=== PATIENT | female | born 1955 | race Caucasian/White ===

== ENCOUNTER 2017-01-12 10:00 | Inpatient (IN) | payer OTHER ==
[~2017-01-12] VITALS: Ht 167.6 cm; Wt 71.1 kg
[2017-01-12] VITALS (7 sets, daily range): BP systolic 108–137; BP diastolic 66–84; PULSE 51–70; RESP 15–20; TEMP 99.3–101; O2SAT 94–96
[~2017-01-12 10:00] MED LIST: ASPI81TA82 PO; ATOR40TA PO; ERYT1O LEFT EYE; HYDR-3533 PO; HYDR12.56 PO; LOSA50TA PO; TAB-TAB PO
[2017-01-12] MEDS ORDERED: [UNRECOGNIZED DRUG - OTHER] PO (10:19)
[2017-01-12] MEDS ORDERED: HYDR25TA5 PO (10:19)
[2017-01-12] MEDS ORDERED: ZITHTAB PO (10:19)
[2017-01-12] MEDS ORDERED: ASPI325T PO (10:19)
[2017-01-12] MEDS ORDERED: ATOR1TAB18 PO (10:19)
[2017-01-12] MEDS ORDERED: LOSA50TA PO (10:19)
[2017-01-12] MEDS ORDERED: SODIUM CHLORIDE 0.9% FLUSH 10 ML FLUSH IVF PRN (10:30)
--- NOTE | 2017-01-12 10:41 | PD ---
HPI Chief Complaint: Cold / Flu Symptoms Time Seen by Provider: 10:20 Travel History International Travel<30 days: No Contact w/Intl Traveler<30days: No Traveled to known affect area: No History of Present Illness HPI Patient is a 61-year-old female presents emergency department with cough congestion but her developing some chest tightness. Patient states she's been coughing congesting for a couple of weeks. She's been taking some anabiotic's Z -Sukumar which her primary care physician called in for her. She states that she wasn't getting better and decided to come in and be seen. She relates a history of having a blockage in her heart diagnosed by cardiac catheterization in 2005 as well as a myocardial infarction in 2016 which she was admitted for but never had a cardiac catheterization. She states she's been ex-smoker and hasn't had a cigarette in eight years. She states she's been having some mild shortness of breath but no nausea no vomiting. No exertional pain. States that she did have a mild fever at home to 100.4. PFSH Past Medical History Arthritis: No Asthma: No Autoimmune Disease: No Blood Disorders: No Anxiety: Yes Depression: No Heart Rhythm Problems: Yes (MITRAL VALVE PROLAPSE) Cancer: Yes (BASAL CELL NOSE) Cardiac Catheterization: Yes Cardiovascular Problems: Yes (HTN, CHOL) High Cholesterol: Yes Chemotherapy: No Chest Pain: No Congestive Heart Failure: No COPD: No Cerebrovascular Accident: No Diminished Hearing: No Endocrine: No Gastrointestinal Disorders: Yes GERD: No Glaucoma: No Genitourinary: No Headaches: No Hepatitis: No Hiatal Hernia: No Hypertension: Yes Immune Disorder: No Implanted Vascular Access Dvce: No Kidney Stones: No Musculoskeletal: No Neurologic: No Psychiatric: Yes Reproductive: No Respiratory: No Integumentary: Yes (BASAL CELL REMOVED FROM NOSE) Immunizations Current: Yes Migraines: No Radiation Therapy: No Renal Failure: No Seizures: No Sleep Apnea: No Thyroid Disease: No Ulcer: No ?: Not : 4 Para: 3 Miscarriage: 1 Dilation and Curettage (D&C): Yes Past Surgical History Abdominal Surgery: No Appendectomy: No Cardiac Surgery: No Cholecystectomy: No Coronary Artery Bypass Graft: No Ear Surgery: No Endocrine Surgery: No Eye Surgery: No Genitourinary Surgery: No Gynecologic Surgery: Yes (PARTIAL HYSTERECTOMY, D&C) Hysterectomy: Yes Neurologic Surgery: No Oral Surgery: No Thoracic Surgery: No Other Surgery: Yes (HYSTERECTOMY) Social History Alcohol Use: Yes (2 GLASSES OF WINE A DAY) Tobacco Use: No (QUIT 2008) Substance Use: No Allergies-Medications (Allergen,Severity, Reaction): Coded Allergies: Amlodipine (Verified Allergy, Severe, legs swelling, 01/12/17) Reported Meds & Prescriptions Reported Meds & Active Scripts Active Reported Aspirin 325 Mg Tab 325 Mg PO DAILY [Vitussin Ac] 5-10 Ml PO Q4HR Atorvastatin (Atorvastatin Calcium) 80 Mg Tab 80 Mg PO HS Hydrochlorothiazide 25 Mg Tab 25 Mg PO DAILY Losartan (Losartan Potassium) 50 Mg Tab 50 Mg PO BID Zithromax Z-Sukumar (Azithromycin) 250 Mg Dspk 250 Mg PO DIRECTED 500 MG (2 tabs) day 1, then 1 tab days 2-5. Review of Systems Except as stated in HPI: all other systems reviewed are Neg Physical Exam Narrative GENERAL: Well-developed well-nourished in no obvious distress. SKIN: Focused skin assessment warm/dry. HEAD: Atraumatic. Normocephalic. EYES: Pupils equal and round. No scleral icterus. No injection or drainage. ENT: No nasal bleeding or discharge. Mucous membranes pink and moist. TMs clear bilaterally, oropharynx clear and moist. NECK: Trachea midline. No JVD. CARDIOVASCULAR: Regular rate and rhythm. No murmur appreciated. Plus bilateral equal pulses in all 4 extremity's. RESPIRATORY: No accessory muscle use. Clear to auscultation. Breath sounds equal bilaterally. GASTROINTESTINAL: Abdomen soft, non-tender, nondistended. Hepatic and splenic margins not palpable. MUSCULOSKELETAL: No obvious deformities. No clubbing. No cyanosis. No edema. NEUROLOGICAL: Awake and alert. No obvious cranial nerve deficits. Motor grossly within normal limits. Normal speech. PSYCHIATRIC: Appropriate mood and affect; insight and judgment normal. Data Data Last Documented VS Vital Signs Date Time Temp Pulse Resp B/P Pulse Ox O2 Delivery O2 Flow Rate FiO2 01/12/17 11:56 58 18 129/72 96 Room Air 01/12/17 10:06 99.3 Orders Electrocardiogram (01/12/17 10:28) Basic Metabolic Panel (Bmp) (01/12/17 10:28) Complete Blood Count With Diff (01/12/17 10:28) Troponin I (01/12/17 10:28) Ecg Monitoring (01/12/17 10:28) Iv Access Insert/Monitor (01/12/17 10:28) Oximetry (01/12/17 10:28) Oxygen Administration (01/12/17 10:28) Sodium Chloride 0.9% Flush (Ns Flush) (01/12/17 10:30) Chest, Pa & Lat (01/12/17 10:28) Aspirin Chew (Aspirin Chew) (01/12/17 11:30) Nitroglycerin Sl (Nitrostat Sl) (01/12/17 11:30) Consult Cardiology (01/12/17 ) Admit Order (Ed Use Only) (01/12/17 ) Labs Laboratory Tests Test 01/12/17 10:41 White Blood Count 5.0 TH/MM3 Red Blood Count 4.25 MIL/MM3 Hemoglobin 13.5 GM/DL Hematocrit 39.9 % Mean Corpuscular Volume 93.9 FL Mean Corpuscular Hemoglobin 31.8 PG Mean Corpuscular Hemoglobin 33.9 % Concent Red Cell Distribution Width 12.8 % Platelet Count 135 TH/MM3 Mean Platelet Volume 8.3 FL Neutrophils (%) (Auto) 68.0 % Lymphocytes (%) (Auto) 19.1 % Monocytes (%) (Auto) 10.0 % Eosinophils (%) (Auto) 1.7 % Basophils (%) (Auto) 1.2 % Neutrophils # (Auto) 3.3 TH/MM3 Lymphocytes # (Auto) 1.0 TH/MM3 Monocytes # (Auto) 0.5 TH/MM3 Eosinophils # (Auto) 0.1 TH/MM3 Basophils # (Auto) 0.1 TH/MM3 CBC Comment DIFF FINAL Differential Comment Sodium Level 138 MEQ/L Potassium Level 3.2 MEQ/L Chloride Level 102 MEQ/L Carbon Dioxide Level 25.2 MEQ/L Anion Gap 11 MEQ/L Blood Urea Nitrogen 12 MG/DL Creatinine 0.63 MG/DL Estimat Glomerular Filtration 96 ML/MIN Rate Random Glucose 101 MG/DL Calcium Level 8.6 MG/DL Troponin I 0.15 NG/ML [facility] Medical Decision Making Medical Screen Exam Complete: Yes Emergency Medical Condition: Yes Interpretation(s) EKG shows sinus bradycardia with normal axis normal R-wave progression. No concerning ST segment changes. Other than rate intervals within normal limits. This is normal EKG except for rate. Differential Diagnosis ACS, AMI, bronchitis, pneumonia Narrative Course Patient roomed emerged permit, appears well in no distress, aspirin and nitroglycerin were given. Initial EKG negative, chest x-ray normal. Patient's troponin is minimally elevated to 0.15. Review of her records shows that in 2016. Troponin was less than 0.10. Patient was discussed with Dr. Hadley who agrees with admission to the hospital, given her fairly atypical symptoms will hold off heparinization at this time. He will see later this afternoon and give recommendations. Okay by him to stay and forearms for now. The patient was then discussed with Dr. Blancas for admission to the hospital. Diagnosis Primary Impression: Chest pain Qualified Code: R07.9 - Chest pain, unspecified type Additional Impression: Elevated troponin I level Admitting Information Admitting Physician Requests: Admit Condition: Stable Alonzo Metz MD Jan 12, 2017 10:41
[2017-01-12 10:57] LABS: AUTOMATED NEUTROPHIL # 3.3 TH/MM3 (1.8-7.7); BASOPHIL # 0.1 TH/MM3 (0-0.2); BASOPHIL % 1.2 % (0.0-2.0); EOSINOPHIL # 0.1 TH/MM3 (0-0.4); EOSINOPHIL % 1.7 % (0.0-4.0); HEMATOCRIT 39.9 % (35.0-46.0); HEMO FLAGS DIFF FINAL; LYMPH % 19.1 % (9.0-44.0); MEAN CELL VOLUME 93.9 FL (80.0-100.0); MEAN CORPUSCULAR HEMOGLOBIN 31.8 PG (27.0-34.0); MEAN CORPUSCULAR HGB CONC 33.9 % (32.0-36.0); PLATELET COUNT 135 TH/MM3 (150-450); RED BLOOD COUNT 4.25 MIL/MM3 (4.00-5.30); RED CELL DISTRIBUTION WIDTH 12.8 % (11.6-17.2)
[2017-01-12 11:04] LABS: POTASSIUM 3.2 MEQ/L (3.5-5.1)
[2017-01-12 11:07] LABS: BICARBONATE 25.2 MEQ/L (21.0-32.0)
[2017-01-12] MEDS ORDERED: ASPIRIN 81 MG CHEW TAB CHEW ONE (11:30)
[2017-01-12] MEDS ORDERED: NITROGLYCERIN 0.4 MG SL 25 TABS/BTL SL ONE (11:30)
--- NOTE | 2017-01-12 11:54 | RADRPT ---
EXAM DATE/TIME: 01/12/2017 10:59 [facility] COMPARISON: CHEST SINGLE AP, September 10, 2015, 2:40. INDICATIONS : Chest pains starting last night MEDICAL HISTORY : Myocardial infarction. SURGICAL HISTORY : None. ENCOUNTER: Initial ACUITY: 1 day PAIN SCORE: 5/10 LOCATION: Bilateral chest FINDINGS: PA and lateral views of the chest demonstrate the lungs to be symmetrically aerated without evidence of mass, infiltrate or effusion. The cardiomediastinal contours are unremarkable. Osseous structure s are intact. CONCLUSION: No evidence of acute cardiopulmonary process. Hector Hendrix MD on January 12, 2017 at 11:52 Board Certified Radiologist. This report was verified electronically.
[2017-01-12] MEDS ORDERED: BISACODYL 10 MG SUPP RECTAL PRN (13:00)
[2017-01-12] MEDS ORDERED: NALOXONE HCL 0.4 MG/ML AMP IV PRN (13:00)
[2017-01-12] MEDS ORDERED: SENNOSIDES 8.6 MG TAB PO PRN (13:00)
[2017-01-12] MEDS ORDERED: LORazepam 0.5 MG TAB PO PRN (13:00)
[2017-01-12] MEDS ORDERED: MAGNESIUM HYDROXIDE SUSP 30 ML CUP PO PRN (13:00)
[2017-01-12] MEDS ORDERED: NITROGLYCERIN 0.4 MG SL 25 TABS/BTL SL PRN (13:00)
[2017-01-12] MEDS ORDERED: LACTULOSE SYRUP 20 GM/30 ML CUP PO PRN (13:00)
[2017-01-12] MEDS ORDERED: SODIUM CHLORIDE 0.9% FLUSH 10 ML FLUSH IV FLUSH PRN (13:00)
--- NOTE | 2017-01-12 13:02 | HHI.HP ---
HPI Service [facility] Hospitalists Primary Care Physician Stanford Yadav MD Admission Diagnosis Elevated [place], Chest pain. Chief Complaint: chest pain Travel History International Travel<30 Days: No Contact w/Intl Traveler <30 Da: No Traveled to Known Affected Are: No History of Present Illness 61 y/o white female with history cad who had recent uri and is on x zpak presented to er with chest pain midchest started about 2 days ago with radiation to back and a feeling of fullness to chest . Came to er and did receive ntg and full asa symptoms improved some what cardiology was called by er and they want patient admitted and they will see later today for further orders. Denies diaphoriasis ,nausea or vomit ,no neck or jaw pain no real SOB some cough which may be related to her uri. Review of Systems Cardiovascular: COMPLAINS OF: Chest pain Past Family Social History Past Medical History cad,hypertension,hyperlipidemia Past Surgical History basal cell ca ,hysterectomy Reported Medications Aspirin 325 Mg Tab 325 Mg PO DAILY [Vitussin Ac] 5-10 Ml PO Q4HR Atorvastatin (Atorvastatin Calcium) 80 Mg Tab 80 Mg PO HS Hydrochlorothiazide 25 Mg Tab 25 Mg PO DAILY Losartan (Losartan Potassium) 50 Mg Tab 50 Mg PO BID Zithromax Z-Sukumar (Azithromycin) 250 Mg Dspk 250 Mg PO DIRECTED 500 MG (2 tabs) day 1, then 1 tab days 2-5. Allergies: Coded Allergies: Amlodipine (Verified Allergy, Severe, legs swelling, 01/12/17) Social History NS,ND Physical Exam Vital Signs Vital Signs Date Time Temp Pulse Resp B/P Pulse Ox O2 Delivery O2 Flow Rate FiO2 01/12/17 11:56 58 18 129/72 96 Room Air 01/12/17 10:44 56 20 108/66 95 Room Air 01/12/17 10:44 56 20 01/12/17 10:43 95 Room Air 01/12/17 10:43 94 Room Air 01/12/17 10:06 99.3 51 15 137/73 95 Physical Exam GENERAL: This is a well-nourished, well-developed patient, in no apparent distress. SKIN: No rashes, ecchymoses or lesions. Cool and dry. HEAD: Atraumatic. Normocephalic. No temporal or scalp tenderness. EYES: Pupils equal round and reactive. Extraocular motions intact. No scleral icterus. No injection or drainage. ENT: Nose without bleeding, purulent drainage or septal hematoma. Throat without erythema, tonsillar hypertrophy or exudate. Uvula midline. Airway patent. NECK: Trachea midline. No JVD or lymphadenopathy. Supple, nontender, no meningeal signs. CARDIOVASCULAR: Regular rate and rhythm without murmurs, gallops, or rubs. RESPIRATORY: Clear to auscultation. Breath sounds equal bilaterally. No wheezes , rales, or rhonchi. GASTROINTESTINAL: Abdomen soft, non-tender, nondistended. No hepato-splenomegaly , or palpable masses. No guarding. MUSCULOSKELETAL: Extremities without clubbing, cyanosis, or edema. No joint tenderness, effusion, or edema noted. No calf tenderness. Negative Homans sign bilaterally. NEUROLOGICAL: Awake and alert. Cranial nerves II through XII intact. Motor and sensory grossly within normal limits. Five out of 5 muscle strength in all muscle groups. Normal speech. Laboratory Laboratory Tests Test 01/12/17 10:41 White Blood Count 5.0 Red Blood Count 4.25 Hemoglobin 13.5 Hematocrit 39.9 Mean Corpuscular Volume 93.9 Mean Corpuscular Hemoglobin 31.8 Mean Corpuscular Hemoglobin 33.9 Concent Red Cell Distribution Width 12.8 Platelet Count 135 Mean Platelet Volume 8.3 Neutrophils (%) (Auto) 68.0 Lymphocytes (%) (Auto) 19.1 Monocytes (%) (Auto) 10.0 Eosinophils (%) (Auto) 1.7 Basophils (%) (Auto) 1.2 Neutrophils # (Auto) 3.3 Lymphocytes # (Auto) 1.0 Monocytes # (Auto) 0.5 Eosinophils # (Auto) 0.1 Basophils # (Auto) 0.1 CBC Comment DIFF FINAL Differential Comment Sodium Level 138 Potassium Level 3.2 Chloride Level 102 Carbon Dioxide Level 25.2 Anion Gap 11 Blood Urea Nitrogen 12 Creatinine 0.63 Estimat Glomerular Filtration 96 Rate Random Glucose 101 Calcium Level 8.6 Troponin I 0.15 Result Diagram: 01/12/17 1041 01/12/17 1041 Imaging Last 24 hours Impressions Chest X-Ray 01/12/17 1028 Signed Impressions: Service Date/Time: Thursday, January 12, 2017 10:59 - CONCLUSION: No evidence of acute cardiopulmonary process. Hector Hendrix MD Course ekg sinus bradycardia troponin .15 Assessment and Plan Problem List: (1) Chest pain Status: Acute Plan: plan ntg prn cardiac consult troponin and ekg later today (2) Elevated troponin I level Status: Acute Plan: as above (3) HTN (hypertension), benign Status: Chronic Plan: continue home meds Assessment and Plan further plan as case develops Code Status full Discussed Condition With patient Physician Certification 2 Midnight Certification Type: Admission for Inpatient Services Order for Inpatient Services The services are ordered in accordance with Medicare regulations or non- Medicare payer requirements, as applicable. In the case of services not specified as inpatient-only, they are appropriately provided as inpatient services in accordance with the 2-midnight benchmark. Estimated LOS (days): 2 2 days is the estimated time the patient will need to remain in the hospital, assuming treatment plan goals are met and no additional complications. Post-Hospital Plan: Not yet determined Problem Qualifiers (1) Chest pain: Qualified Code: R07.9 - Chest pain, unspecified type Anthony Roman MD Jan 12, 2017 13:02
[2017-01-12] MEDS ORDERED: [UNRECOGNIZED DRUG - OTHER] PO SCH (16:00)
[2017-01-12] MEDS: guaiFENesin/CODEINE SYRUP 200 MG/20 MG/10 ML CUP PO SCH ×2 (16:05→20:17)
--- NOTE | 2017-01-12 18:45 | MB ---
cc: [place] PATTERSON MD DATE OF CONSULTATION January 12, 2017 CONSULTATION Atypical chest pain and indeterminate troponin. HISTORY OF PRESENT ILLNESS The patient is a pleasant 61-year-old woman who sees my colleague, Dr. Cifuentes, who has a history of moderate coronary artery disease per cardiac catheterization in 2005. She had been doing well until a couple days ago when she developed a URI with significant cough. She has had subsequent right lower chest pain and pressure particularly with coughing and deep inspiration but some general chest discomfort as well. Currently, she is chest pain free but still having a significant cough. She denies shortness breath, lightheadedness, dizziness, syncope. PAST MEDICAL HISTORY Moderate coronary artery disease as described above, hypertension, hyperlipidemia. CURRENT MEDICATIONS 1. Aspirin 325 milligrams daily. 2. Azithromycin 250 milligrams daily. 3. Hydrochlorothiazide 25 milligrams daily. 4. Lipitor 80 milligrams q.h.s. 5. Cozaar 50 milligrams b.i.d. ALLERGIES ALLERGIES ARE AMLODIPINE. PHYSICAL EXAMINATION VITAL SIGNS: Temperature 99.3, pulse 62, respiratory rate 18, BP 122/78, satting 96 on room air. GENERAL: Pleasant well-appearing woman in no distress. NECK: No JVD. LUNGS: Clear to auscultation bilaterally. CARDIOVASCULAR: Regular rate and rhythm. No murmurs appreciated. ABDOMEN: Benign. EXTREMITIES: No edema. LABORATORY DATA White count 5.0, hematocrit 39.9, platelets 135. Sodium 130, potassium 3.2, chloride 100, bicarb 25.2, BUN 12, creatinine 0.63, glucose 101. Troponins are flat at 0.15, 0.15. Of note, her troponins were slightly elevated at her last admission at 0.08, 0.11 and 0.09. IMAGING STUDIES EKG shows sinus bradycardia without any acute ST or T-wave changes. Chest x-ray normal. IMPRESSION 1. Atypical chest discomfort. The patient's chest discomfort seems most likely due to her URI/coughing and seems rather atypical in nature. The patient does admit that she has some anxiety about her heart knowing her moderate coronary artery disease. I will have her undergo a nuclear stress test tomorrow. The patient also did note palpitations which sound like benign PVCs. We will monitor her on telemetry while she is here. Maybe she would benefit from a Holter monitor as an outpatient. Further recommendations will be based on her nuclear stress test tomorrow. Thank you again for the opportunity to participate in this patient's care. MD MAU Biswas/SARIAH /6:20 PM /6:37 PM
[2017-01-12] MEDS: ACETAMINOPHEN 325 MG TAB PO PRN (20:16)
[2017-01-12] MEDS: DOCUSATE SODIUM 50 MG/SENNA 8.6 MG TAB PO SCH (20:17)
[2017-01-12] MEDS: SODIUM CHLORIDE 0.9% FLUSH 10 ML FLUSH IV FLUSH SCH (20:17)
[2017-01-12] MEDS: LOSARTAN 50 MG TAB PO SCH (20:17)
[2017-01-12] MEDS ORDERED: ATORVASTATIN 40 MG TAB PO SCH (21:00)
[2017-01-13] VITALS: BP 119/70; PULSE 66; RESP 18; TEMP 98.5; O2SAT 97
[2017-01-13] MEDS: guaiFENesin/CODEINE SYRUP 200 MG/20 MG/10 ML CUP PO SCH ×4 (00:03→13:11)
[2017-01-13 04:00] VITALS: BP 142/78; PULSE 53; RESP 16; TEMP 98.5; O2SAT 94
[2017-01-13 08:00] VITALS: BP 134/87; PULSE 82; RESP 20; TEMP 100.6; O2SAT 99
[2017-01-13] MEDS: DOCUSATE SODIUM 50 MG/SENNA 8.6 MG TAB PO SCH (08:19)
[2017-01-13] MEDS: SODIUM CHLORIDE 0.9% FLUSH 10 ML FLUSH IV FLUSH SCH (08:19)
[2017-01-13 08:20] VITALS: PULSE 64
[2017-01-13] MEDS: LOSARTAN 50 MG TAB PO SCH (08:20)
[2017-01-13] MEDS: ACETAMINOPHEN 325 MG TAB PO PRN (08:22)
--- NOTE | 2017-01-13 08:26 | PD.CARD.PN ---
Subjective Subjective Remarks Atypical chest pain continues (bubble sensation in epigastric region radiating to R lower back, mostly with swallowing.) Objective Medications Administered Medications Medications (Trade) Dose Ordered Sig/Amina Route PRN Reason Start Time Stop Time Status Last Admin Dose Admin Atorvastatin Calcium (Lipitor) 80 mg HS PO 01/12/17 21:00 01/12/17 20:16 Losartan Potassium (Cozaar) 50 mg BID PO 01/12/17 21:00 01/12/17 20:17 Sodium Chloride (NS Flush) 2 ml BID IV FLUSH 01/12/17 21:00 01/12/17 20:17 Acetaminophen (Tylenol) 650 mg Q4H PRN PO TEMP > 100.4 01/12/17 13:00 01/12/17 20:16 Senna/Docusate Sodium (Carrie-Colace) 1 tab BID PO 01/12/17 21:00 01/12/17 20:17 Guaifenesin/ Codeine Phosphate (Robitussin Ac 200-20 Mg/10 ml Liq) 5 ml Q4HR PO 01/12/17 16:00 01/13/17 04:19 Vital Signs / I&O Vital Signs Date Time Temp Pulse Resp B/P Pulse Ox O2 Delivery O2 Flow Rate FiO2 01/13/17 04:00 98.5 53 16 142/78 94 01/13/17 00:00 98.5 66 18 119/70 97 01/12/17 20:00 63 01/12/17 20:00 101.0 70 18 123/76 95 01/12/17 18:54 72 18 130/84 99 01/12/17 14:12 62 18 122/78 96 Room Air 01/12/17 14:09 Room Air 01/12/17 11:56 58 18 129/72 96 Room Air 01/12/17 10:44 56 20 108/66 95 Room Air 01/12/17 10:44 56 20 01/12/17 10:43 95 Room Air 01/12/17 10:43 94 Room Air 01/12/17 10:06 99.3 51 15 137/73 95 I/O 01/12/17 01/12/17 01/12/17 01/13/17 01/13/17 01/13/17 07:00 15:00 23:00 07:00 15:00 23:00 Intake Total 360 ml 0 ml Balance 360 ml 0 ml Intake Oral 360 ml 0 ml # Voids 1 1 1 # Bowel Movements 0 0 Physical Exam GENERAL: This is a well-nourished, well-developed patient, in no apparent distress. CARDIOVASCULAR: Regular rate and rhythm without murmurs, gallops, or rubs. RESPIRATORY: Clear to auscultation. Breath sounds equal bilaterally. No wheezes , rales, or rhonchi. GASTROINTESTINAL: Abdomen soft, non-tender, nondistended. Normal active bowel sounds MUSCULOSKELETAL: Extremities without clubbing, cyanosis, or edema. NEURO: Alert & Oriented x4 to person, place, time, situation. Moves all ext x4 Laboratory Laboratory Tests Test 01/12/17 01/12/17 10:41 16:42 White Blood Count 5.0 TH/MM3 Red Blood Count 4.25 MIL/MM3 Hemoglobin 13.5 GM/DL Hematocrit 39.9 % Mean Corpuscular Volume 93.9 FL Mean Corpuscular Hemoglobin 31.8 PG Mean Corpuscular Hemoglobin 33.9 % Concent Red Cell Distribution Width 12.8 % Platelet Count 135 TH/MM3 Mean Platelet Volume 8.3 FL Neutrophils (%) (Auto) 68.0 % Lymphocytes (%) (Auto) 19.1 % Monocytes (%) (Auto) 10.0 % Eosinophils (%) (Auto) 1.7 % Basophils (%) (Auto) 1.2 % Neutrophils # (Auto) 3.3 TH/MM3 Lymphocytes # (Auto) 1.0 TH/MM3 Monocytes # (Auto) 0.5 TH/MM3 Eosinophils # (Auto) 0.1 TH/MM3 Basophils # (Auto) 0.1 TH/MM3 CBC Comment DIFF FINAL Differential Comment Sodium Level 138 MEQ/L Potassium Level 3.2 MEQ/L Chloride Level 102 MEQ/L Carbon Dioxide Level 25.2 MEQ/L Anion Gap 11 MEQ/L Blood Urea Nitrogen 12 MG/DL Creatinine 0.63 MG/DL Estimat Glomerular Filtration 96 ML/MIN Rate Random Glucose 101 MG/DL Calcium Level 8.6 MG/DL Troponin I 0.15 NG/ML 0.15 NG/ML Imaging Last Impressions Chest X-Ray 01/12/17 1028 Signed Impressions: Service Date/Time: Thursday, January 12, 2017 10:59 - CONCLUSION: No evidence of acute cardiopulmonary process. Hector Hendrix MD Assessment and Plan Problem List: (1) Atypical chest pain Assessment and Plan: For nuclear stress today (2) Elevated troponin I level Assessment and Plan: non-specific, ? due to her febrile illness (3) CAD (coronary artery disease) Assessment and Plan: moderate non-obstructive dz by remote cath (4) Fever Assessment and Plan: Suspect fever/infectious source cause of her sx; mgt per medical team Assessment and Plan If nuclear non-ischemic would sign off and she can f/u with Dr. Cifuentes as outpatient Mauricio Duff MD Jan 13, 2017 08:26
[2017-01-13] MEDS ORDERED: HYDROCHLOROTHIAZIDE 25 MG TAB PO SCH (09:00)
[2017-01-13] MEDS ORDERED: ASPIRIN 325 MG TAB PO SCH (09:00)
[2017-01-13] MEDS ORDERED: AZITHROMYCIN 250 MG TAB PO SCH (09:00)
--- NOTE | 2017-01-13 11:54 | HHI.PR ---
Subjective Remarks Patient feeling alright has persistent elevated slightly troponin level .15 and cardiology has oredered nuclear stress test discharge pending results Objective Vitals GENERAL: SKIN: Warm and dry. HEAD: Atraumatic. Normocephalic. EYES: Pupils equal and round. No scleral icterus. No injection or drainage. ENT: No nasal bleeding or discharge. Mucous membranes pink and moist. NECK: Trachea midline. No JVD. CARDIOVASCULAR: Regular rate and rhythm. RESPIRATORY: No accessory muscle use. Clear to auscultation. Breath sounds equal bilaterally. GASTROINTESTINAL: Abdomen soft, non-tender, nondistended. Hepatic and splenic margins not palpable. MUSCULOSKELETAL: Extremities without clubbing, cyanosis, or edema. No obvious deformities. NEUROLOGICAL: Awake and alert. No obvious cranial nerve deficits. Motor grossly within normal limits. Five out of 5 muscle strength in the arms and legs. Normal speech. PSYCHIATRIC: Appropriate mood and affect; insight and judgment normal. Vital Signs Date Time Temp Pulse Resp B/P Pulse Ox O2 Delivery O2 Flow Rate FiO2 01/13/17 08:00 100.6 82 20 134/87 99 01/13/17 04:00 98.5 53 16 142/78 94 01/13/17 00:00 98.5 66 18 119/70 97 01/12/17 20:00 63 01/12/17 20:00 101.0 70 18 123/76 95 01/12/17 18:54 72 18 130/84 99 01/12/17 14:12 62 18 122/78 96 Room Air 01/12/17 14:09 Room Air 01/12/17 11:56 58 18 129/72 96 Room Air 01/12/17 01/12/17 01/13/17 15:00 23:00 07:00 Intake Total 360 ml 0 ml Balance 360 ml 0 ml Intake Oral 360 ml 0 ml # Voids 1 1 1 # Bowel Movements 0 0 Result Diagram: 01/12/17 1041 01/12/17 1041 Imaging Last 24 hours Impressions Chest X-Ray 01/12/17 1028 Signed Impressions: Service Date/Time: Thursday, January 12, 2017 10:59 - CONCLUSION: No evidence of acute cardiopulmonary process. Hector Hendrix MD A/P Problem List: (1) Chest pain Status: Acute Plan: plan ntg prn await stress test as per cardiology D/C if negative (2) Elevated troponin I level Status: Acute Plan: as above (3) HTN (hypertension), benign Status: Chronic Plan: continue home meds Assessment and Plan as above Problem Qualifiers (1) Chest pain: Qualified Code: R07.9 - Chest pain, unspecified type Anthony Roman MD Jan 13, 2017 11:54
[2017-01-13 12:00] VITALS: BP 122/76; PULSE 54; RESP 20; TEMP 98.6; O2SAT 97
[2017-01-13] MEDS ORDERED: REGADENOSON INJ 0.4 MG/5 ML SYR IV ONE (12:03)
--- NOTE | 2017-01-13 12:44 | EKG ---
Date Performed: 01/12/2017 Time Performed: 17:08:49 PTAGE: 61 years EKG: SINUS BRADYCARDIA Compared to prior tracing no significant change BORDERLINE ECG PREVIOUS TRACING : 01/12/2017 10.33 DOCTOR: Mauricio Duff Interpretating Date/Time 01/13/2017 12:36:16
--- NOTE | 2017-01-13 12:44 | EKG ---
Date Performed: 01/12/2017 Time Performed: 10:33:19 PTAGE: 61 years EKG: SINUS BRADYCARDIA Compared to prior tracing no significant change BORDERLINE ECG PREVIOUS TRACING : 09/10/2015 09.00 DOCTOR: Mauricio Duff Interpretating Date/Time 01/13/2017 12:36:06
--- NOTE | 2017-01-13 13:43 | RADRPT ---
EXAM DATE/TIME: 01/13/2017 12:03 [facility] COMPARISON: MYOCARDIAL PERF PHARM SPECT, GATED W/EF, September 11, 2015, 10:34. INDICATIONS : Coughing and congested with developing left chest pain with dyspnea and nausea. Angina. DOSE: 27.3 mCi Tc99m Myoview at stress. 8.8 mCi Tc99m Myoview at rest. 0.4 mg Lexiscan STRESS SYMPTOMS: Dyspnea. EJECTION FRACTION: 64% MEDICAL HISTORY : Myocardial infarction. Hypercholesterolemia. Hypertension. SURGICAL HISTORY : Hysterectomy. ENCOUNTER: Initial ACUITY: 1 day PAIN SCALE: 4/10 LOCATION: Left chest TECHNIQUE: The patient underwent pharmacologic stress with infusion of prescribed dose. Continuous ECG tracing was monitored during stress. Gated SPECT imaging was performed after stress and conventional SPECT i maging was performed at rest. The examination was performed on a SPECT/CT scanner, both attenuation and non-corrected datasets were reviewed. FINDINGS: DISTRIBUTION: The maximum perfused segment at stress is in the anterolateral wall. PERFUSION STUDY: The pattern of perfusion at stress demonstrates reduction in perfusion to the posterior basal and ant erolateral septal wall to a slight degree which are fixed probably attenuation artifacts. GATED STUDY: There is intact wall motion and thickening without hypokinetic or dyskinetic segments. CONCLUSION: No appreciable ischemia.. RISK CATEGORY: Low (<1% Annual Mortality Rate) Lizbet Sifuentes MD on January 13, 2017 at 13:39 Board Certified Radiologist. This report was verified electronically.
[2017-01-13] MEDS ORDERED: LORA-373 PO (14:36)
--- NOTE | 2017-01-13 14:37 | HHI.DCPOC ---
Discharge Care Plan Diagnosis: (1) Chest pain Goals to Promote Your Health * To prevent worsening of your condition and complications * To maintain your health at the optimal level Directions to Meet Your Goals Take your medications as prescribed Follow your dietary instruction Follow activity as directed Keep your appointments as scheduled Take your immunizations and boosters as scheduled If your symptoms worsen call your PCP, if no PCP go to Urgent Care Center or Emergency Room Smoking is Dangerous to Your Health. Avoid second hand smoke Call the 24-hour hour crisis hotline for domestic abuse at Anthony Roman MD Jan 13, 2017 14:37
== END 2017-01-13 15:54 | disposition home or self-care (01) | DRG 313 ==
LOC: PHED 10:00 → PHEDA 12:34 → PHEDH 16:33 → PH3A 18:49
PROVIDERS: ADMIT Internal Medicine; ATTEND Internal Medicine
DX: R07.9 Chest pain, unspecified (principal); R74.8 Abnormal levels of other serum enzymes; I25.2 Old myocardial infarction; I10 Essential (primary) hypertension; R00.1 Bradycardia, unspecified; J06.9 Acute upper respiratory infection, unspecified; Z87.891 Personal history of nicotine dependence; Z85.828 Personal history of other malignant neoplasm of skin; E78.00 Pure hypercholesterolemia, unspecified; F41.9 Anxiety disorder, unspecified; I34.1 Nonrheumatic mitral (valve) prolapse; E78.5 Hyperlipidemia, unspecified; I25.10 Atherosclerotic heart disease of native coronary artery without angina pectoris
CPT/HCPCS: 71020; 78452; 80048; 84484; 85025; 93005; 93017; A9502; J2785

== ENCOUNTER 2017-07-10 13:54 | Observation (INO) | payer OTHER ==
[2017-07-10] VITALS (7 sets, daily range): BP systolic 117–213; BP diastolic 55–102; PULSE 46–65; RESP 16–24; TEMP 97.6–98.9; O2SAT 94–98
[~2017-07-10] VITALS: Ht 167.6 cm; Wt 68.2 kg
[~2017-07-10 13:54] MED LIST changes: +ASPI-183 PO; -ASPI81TA82 PO; -ATOR40TA PO; +ATOR80TA45 PO; -ERYT1O LEFT EYE; -HYDR-3533 PO; -HYDR12.56 PO; +HYDR25TA5 PO; +LORA0.5T PO; -TAB-TAB PO; +ZITHTAB PO; +[UNRECOGNIZED DRUG - OTHER] PO
--- NOTE | 2017-07-10 15:11 | RADRPT ---
EXAM DATE/TIME: 07/10/2017 14:48 [facility] COMPARISON: CHEST PA & LAT, January 12, 2017, 10:59. INDICATIONS : Patient complains of shortness of breath and left sided chest pain. MEDICAL HISTORY : Myocardial infarction. SURGICAL HISTORY : None. ENCOUNTER: Initial ACUITY: 1 day PAIN SCORE: 7/10 LOCATION: Left chest FINDINGS: PA and lateral views of the chest demonstrate the lungs to be symmetrically aerated without evidence of mass, infiltrate or effusion. Minimal bibasilar subsegmental atelectasis/scarring. The cardiomedi astinal contours are unremarkable. Osseous structures are intact. CONCLUSION: Bibasilar subsegmental atelectasis/scarring. No acute disease. Palmer Alicea MD on July 10, 2017 at 14:59 Board Certified Radiologist. This report was verified electronically.
[2017-07-10 15:26] LABS: BASOPHIL # 0.1 TH/MM3 (0-0.2); BASOPHIL % 1.1 % (0.0-2.0); EOSINOPHIL # 0.1 TH/MM3 (0-0.4); EOSINOPHIL % 1.6 % (0.0-4.0); HEMATOCRIT 38.9 % (35.0-46.0); HEMOGLOBIN 13.4 GM/DL (11.6-15.3); LYMPH % 35.7 % (9.0-44.0); MEAN CELL VOLUME 97.2 FL (80.0-100.0); MEAN CORPUSCULAR HEMOGLOBIN 33.5 PG (27.0-34.0); MEAN CORPUSCULAR HGB CONC 34.5 % (32.0-36.0); MEAN PLATELET VOLUME 8.2 FL (7.0-11.0); MONO % 8.9 % (0.0-8.0); MONOCYTE # 0.5 TH/MM3 (0-0.9); NEUT % 52.7 % (16.0-70.0); PLATELET COUNT 191 TH/MM3 (150-450); RED BLOOD COUNT 4.01 MIL/MM3 (4.00-5.30); RED CELL DISTRIBUTION WIDTH 13.5 % (11.6-17.2); WHITE BLOOD COUNT 5.6 TH/MM3 (4.0-11.0)
[2017-07-10 15:38] LABS: PROTHROMBIN TIME - PATIENT 10.1 SEC (9.8-11.6)
[2017-07-10 15:58] LABS: ALT (GPT) 47 U/L (10-53); AST (GOT) 24 U/L (15-37); BICARBONATE 29.5 MEQ/L (21.0-32.0); BLOOD UREA NITROGEN 10 MG/DL (7-18); CALCIUM 8.6 MG/DL (8.5-10.1); CHLORIDE 105 MEQ/L (98-107); CREATININE 0.64 MG/DL (0.50-1.00); GLOMERULAR FILTRATION RATE 94 ML/MIN (>89); GLUCOSE,RANDOM 92 MG/DL (74-106); LIPASE 146 U/L (73-393); SODIUM (NA) 141 MEQ/L (136-145)
[2017-07-10 16:03] LABS: ALKALINE PHOSPHATASE 92 U/L (45-117); TOTAL BILIRUBIN ADULT 0.3 MG/DL (0.2-1.0); TOTAL PROTEIN 7.6 GM/DL (6.4-8.2); TROPONIN I 0.07 NG/ML (0.02-0.05)
[2017-07-10] MEDS ORDERED: NITROGLYCERIN 2% OINT 1 GM PACKET TOPICAL ONE (17:30)
[2017-07-10] MEDS ORDERED: SODIUM CHLOR 0.9% 250 ML INJ 250 ML IV ONE (17:30)
[2017-07-10] MEDS ORDERED: ONDANSETRON HCL 4 MG/2 ML VIAL IV PUSH ONE (17:30)
[2017-07-10] MEDS ORDERED: MORPHINE SULFATE 2 MG/ML INJ IV PUSH ONE (17:30)
--- NOTE | 2017-07-10 17:31 | PD ---
HPI Chief Complaint: Chest Pain Time Seen by Provider: 17:09 Travel History International Travel<30 days: No Contact w/Intl Traveler<30days: No Traveled to known affect area: No History of Present Illness HPI The patient is a 61-year-old female who presents to the emergency department for chest pain. The patient states she developed left-sided chest pain earlier today which she described as "squeezing ", radiates left shoulder, was associated with shortness of breath, nausea, and mild diaphoresis. The patient states she try to take a deep breath in, her self, this didn't alleviate the pain mildly, however, the pain is still at a 6.5/10. The patient does have a history of coronary artery disease, states she underwent cardiac catheterization approximately 10 years ago and was noted to have mild CAD, but no stent was placed. The patient was admitted over the summertime at 2017 for different type chest pain, states she had a nuclear medicine myocardial perfusion scan at that time which was negative. She does have a history of hypertension, hyperlipidemia, quit smoking tobacco 8 years ago. She does smoke marijuana. She denies any history of diabetes. The patient's primary physician is Dr. Stanford Yadav. The patient has seen the outreach counselor Dr. Joseph and Dr. Cifuentes in the past. She does not currently follow with a specific outreach counselor. The patient did take a full size aspirin prior to arrival. PFSH Past Medical History Arthritis: No Asthma: No Autoimmune Disease: No Blood Disorders: No Anxiety: No Depression: No Heart Rhythm Problems: Yes (MITRAL VALVE PROLAPSE) Cancer: Yes (BASAL CELL NOSE) Cardiac Catheterization: Yes Cardiovascular Problems: Yes (HTN, CHOL) High Cholesterol: Yes Chemotherapy: No Chest Pain: Yes (x2days) Congestive Heart Failure: No COPD: No Cerebrovascular Accident: No Diabetes: No Diminished Hearing: No Endocrine: No Gastrointestinal Disorders: Yes GERD: No Glaucoma: No Genitourinary: No Headaches: No Hepatitis: No Hiatal Hernia: No Hypertension: Yes Immune Disorder: No Implanted Vascular Access Dvce: No Kidney Stones: No Musculoskeletal: No Neurologic: No Psychiatric: No Reproductive: No Respiratory: No Integumentary: Yes (BASAL CELL REMOVED FROM NOSE) Immunizations Current: Yes Migraines: No Radiation Therapy: No Renal Failure: No Seizures: No Sleep Apnea: No Thyroid Disease: No Ulcer: No ?: Not : 4 Para: 3 Miscarriage: 1 Dilation and Curettage (D&C): Yes Past Surgical History Abdominal Surgery: Yes (Hysterectomy, D&C) AICD: No Appendectomy: No Arteriovenous Shunt: No Cardiac Surgery: No Cholecystectomy: No Coronary Artery Bypass Graft: No Ear Surgery: No Endocrine Surgery: No Eye Surgery: No Genitourinary Surgery: No Gynecologic Surgery: Yes (PARTIAL HYSTERECTOMY, D&C) Hysterectomy: Yes Insulin Pump: No Joint Replacement: No Neurologic Surgery: No Oral Surgery: No Pacemaker: No Thoracic Surgery: No Other Surgery: Yes (HYSTERECTOMY) Social History Alcohol Use: Yes (2 GLASSES OF WINE A DAY) Tobacco Use: No (QUIT 2008) Substance Use: No Allergies-Medications (Allergen,Severity, Reaction): Coded Allergies: amlodipine (Unverified Allergy, Severe, legs swelling, 07/10/17) Reported Meds & Prescriptions Reported Meds & Active Scripts Active Lorazepam 0.5 Mg Tab 0.5 Mg PO DAILY PRN prn Reported Aspirin 325 Mg Tab 325 Mg PO DAILY Atorvastatin (Atorvastatin Calcium) 80 Mg Tab 80 Mg PO HS Hydrochlorothiazide 25 Mg Tab 25 Mg PO DAILY Losartan (Losartan Potassium) 50 Mg Tab 50 Mg PO BID Review of Systems Except as stated in HPI: all other systems reviewed are Neg HENT: No: Lightheadedness Cardiovascular: Positive: Chest Pain or Discomfort, Diaphoresis Respiratory: Positive: Shortness of Breath Gastrointestinal: Positive: Nausea, No: Vomiting Musculoskeletal: No: Edema Neurologic: No: Dizziness Physical Exam Narrative GENERAL: Awake, alert, pleasant 61-year-old female who appears her stated age and is in no acute respiratory distress. SKIN: Focused skin assessment warm/dry. HEAD: Atraumatic. Normocephalic. EYES: No injection or drainage. ENT: No nasal bleeding or discharge. Mucous membranes pink and moist. NECK: Trachea midline. No JVD. CARDIOVASCULAR: Regular rate and rhythm. Systolic murmur noted. RESPIRATORY: No accessory muscle use. Clear to auscultation. Breath sounds equal bilaterally. GASTROINTESTINAL: Abdomen soft, non-tender, nondistended. No epigastric tenderness. No guarding or rigidity. MUSCULOSKELETAL: No obvious deformities. No clubbing. No cyanosis. No edema. NEUROLOGICAL: Awake and alert. No obvious cranial nerve deficits. Motor grossly within normal limits. Normal speech. PSYCHIATRIC: Slightly anxious. Data Data Last Documented VS Vital Signs Date Time Temp Pulse Resp B/P (MAP) Pulse Ox O2 Delivery O2 Flow Rate FiO2 07/10/17 17:17 55 24 212/95 (134) 98 07/10/17 13:55 98.9 Room Air Orders Orders Electrocardiogram (07/10/17 14:27) Ckmb (Isoenzyme) Profile (07/10/17 14:27) Complete Blood Count With Diff (07/10/17 14:27) Comprehensive Metabolic Panel (07/10/17 14:27) Magnesium (Mg) (07/10/17 14:27) Prothrombin Time / Inr (Pt) (07/10/17 14:27) Act Partial Throm Time (Ptt) (07/10/17 14:27) Troponin I (07/10/17 14:27) Lipase (07/10/17 14:27) Chest, Pa & Lat (07/10/17 14:27) CKMB (07/10/17 15:05) CKMB% (07/10/17 15:05) Morphine Inj (Morphine Inj) (07/10/17 17:30) Nitroglycerin 2% Oint (Nitroglycerin 2% (07/10/17 17:30) Ondansetron Inj (Zofran Inj) (07/10/17 17:30) Ns (Bolus) Inj (07/10/17 17:30) Labs Laboratory Tests Test 07/10/17 15:05 White Blood Count 5.6 TH/MM3 Red Blood Count 4.01 MIL/MM3 Hemoglobin 13.4 GM/DL Hematocrit 38.9 % Mean Corpuscular Volume 97.2 FL Mean Corpuscular Hemoglobin 33.5 PG Mean Corpuscular Hemoglobin Concent 34.5 % Red Cell Distribution Width 13.5 % Platelet Count 191 TH/MM3 Mean Platelet Volume 8.2 FL Neutrophils (%) (Auto) 52.7 % Lymphocytes (%) (Auto) 35.7 % Monocytes (%) (Auto) 8.9 % Eosinophils (%) (Auto) 1.6 % Basophils (%) (Auto) 1.1 % Neutrophils # (Auto) 3.0 TH/MM3 Lymphocytes # (Auto) 2.0 TH/MM3 Monocytes # (Auto) 0.5 TH/MM3 Eosinophils # (Auto) 0.1 TH/MM3 Basophils # (Auto) 0.1 TH/MM3 CBC Comment DIFF FINAL Differential Comment Prothrombin Time 10.1 SEC Prothromb Time International Ratio 1.0 RATIO Activated Partial Thromboplast Time 29.4 SEC Blood Urea Nitrogen 10 MG/DL Creatinine 0.64 MG/DL Random Glucose 92 MG/DL Total Protein 7.6 GM/DL Albumin 4.0 GM/DL Calcium Level 8.6 MG/DL Magnesium Level 2.0 MG/DL Alkaline Phosphatase 92 U/L Aspartate Amino Transf (AST/SGOT) 24 U/L Alanine Aminotransferase (ALT/SGPT) 47 U/L Total Bilirubin 0.3 MG/DL Sodium Level 141 MEQ/L Potassium Level 4.0 MEQ/L Chloride Level 105 MEQ/L Carbon Dioxide Level 29.5 MEQ/L Anion Gap 7 MEQ/L Estimat Glomerular Filtration Rate 94 ML/MIN Total Creatine Kinase 222 U/L Creatine Kinase MB 6.1 NG/ML Creatine Kinase MB % 2.7 % Troponin I 0.07 NG/ML Lipase 146 U/L MDM Medical Decision Making Medical Screen Exam Complete: Yes Emergency Medical Condition: Yes Medical Record Reviewed: Yes Interpretation(s) EKG reveals sinus bradycardia with a heart rate of 54. No ischemic changes noted. Last Impressions Chest X-Ray 07/10/17 1427 Signed Impressions: Service Date/Time: Monday, July 10, 2017 14:48 - CONCLUSION: Bibasilar subsegmental atelectasis/scarring. No acute disease. Palmer Alicea MD Laboratory Tests Test 07/10/17 15:05 White Blood Count 5.6 TH/MM3 Red Blood Count 4.01 MIL/MM3 Hemoglobin 13.4 GM/DL Hematocrit 38.9 % Mean Corpuscular Volume 97.2 FL Mean Corpuscular Hemoglobin 33.5 PG Mean Corpuscular Hemoglobin Concent 34.5 % Red Cell Distribution Width 13.5 % Platelet Count 191 TH/MM3 Mean Platelet Volume 8.2 FL Neutrophils (%) (Auto) 52.7 % Lymphocytes (%) (Auto) 35.7 % Monocytes (%) (Auto) 8.9 % Eosinophils (%) (Auto) 1.6 % Basophils (%) (Auto) 1.1 % Neutrophils # (Auto) 3.0 TH/MM3 Lymphocytes # (Auto) 2.0 TH/MM3 Monocytes # (Auto) 0.5 TH/MM3 Eosinophils # (Auto) 0.1 TH/MM3 Basophils # (Auto) 0.1 TH/MM3 CBC Comment DIFF FINAL Differential Comment Prothrombin Time 10.1 SEC Prothromb Time International Ratio 1.0 RATIO Activated Partial Thromboplast Time 29.4 SEC Blood Urea Nitrogen 10 MG/DL Creatinine 0.64 MG/DL Random Glucose 92 MG/DL Total Protein 7.6 GM/DL Albumin 4.0 GM/DL Calcium Level 8.6 MG/DL Magnesium Level 2.0 MG/DL Alkaline Phosphatase 92 U/L Aspartate Amino Transf (AST/SGOT) 24 U/L Alanine Aminotransferase (ALT/SGPT) 47 U/L Total Bilirubin 0.3 MG/DL Sodium Level 141 MEQ/L Potassium Level 4.0 MEQ/L Chloride Level 105 MEQ/L Carbon Dioxide Level 29.5 MEQ/L Anion Gap 7 MEQ/L Estimat Glomerular Filtration Rate 94 ML/MIN Total Creatine Kinase 222 U/L Creatine Kinase MB 6.1 NG/ML Creatine Kinase MB % 2.7 % Troponin I 0.07 NG/ML Lipase 146 U/L Differential Diagnosis Differential diagnosis includes acute coronary syndrome, hypertensive urgency, hypertensive emergency, pulmonary embolism, pleural effusion, pericardial effusion, pericarditis, myocarditis. Narrative Course IV was established, labs are drawn and sent, and the patient was placed on cardiac telemetry monitoring and continuous pulse oximetry monitoring. EKG was ordered and interpreted. The patient took aspirin prior to arrival. The patient did receive nitro paste, morphine, Zofran, and IV fluids. Chest x-ray was unremarkable. Troponin was elevated, I reviewed the patient's EMR, she is had elevated troponins in the past. The patient had a negative nuclear medicine myocardial perfusion scan in December 2016. I also reviewed the patient's cardiac catheterization report report from [address] Haji, she had mild LAD disease with moderate 50-60% stenosis of the first diagonal branch. There was no stent placed. The patient's elevated troponin may be secondary to hypertensive urgency/emergency versus underlying CAD. Patient will be 23 hour observation and may benefit from cardiology evaluation tomorrow. She may benefit from cardiac catheterization or placement on Imdur for continuing symptoms as she has already had a negative nuclear medicine myocardial perfusion scan in the last year. Physician Communication Physician Communication I discussed the patient Dr. Bowers who agrees with 23 hour observation. Diagnosis Primary Impression: Chest pain Qualified Codes: R07.9 - Chest pain, unspecified Additional Impression: Elevated troponin I level Admitting Information Admitting Physician Requests: Observation Condition: Stable Everton Armstrong MD Jul 10, 2017 17:31
[2017-07-10] MEDS ORDERED: IOHEXOL 350 MG/ML 50 ML BTL (for Cath Lab) OTHER ONE (17:43)
--- NOTE | 2017-07-10 17:44 | HHI.HP ---
HPI Service CP Hospitalists Primary Care Physician Stanford Yadav MD Admission Diagnosis chest pain rule out ACS Chief Complaint: cp Travel History International Travel<30 Days: No Contact w/Intl Traveler <30 Da: No Traveled to Known Affected Are: No History of Present Illness Pt is 61 yo with hx nonobstructive cad( 50-60% first diagonal) on [facility] 2005. She presents with left chest tightness/squeezing radiating to left shoulder with nausea and ? diaphoresis. It lasted for about 5 hrs until given morphine. ntg was given at same time. She says this is a different presentation than when she had negative nuclear stress tests in 01/14 and in 2016. In 2016 felt to be anxiety and 2017 more of a viral illness/pleurisy. She took an asa before arriving. also her bp has been elevated today which is unusual. ED requesting she be seen by a histologist for consideration of [facility]. It is not associated with food. she tried taking gas x w/out relief. 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 Review of Systems Other left cp/left shoulder nausea Past Family Social History Past Medical History [facility] 2005. 50-60percent first diag 2015 and 2016 neg nuc stress testing htn hyperlipidemia hysterectomy Reported Medications Aspirin 325 Mg Tab 325 Mg but not daily Atorvastatin (Atorvastatin Calcium) 80 Mg Tab 80 Mg PO HS Hydrochlorothiazide 25 Mg Tab 25 Mg PO DAILY Losartan (Losartan Potassium) 50 Mg Tab 50 Mg PO BID Allergies: Coded Allergies: amlodipine (Unverified Allergy, Severe, legs swelling, 07/10/17) Family History nc Social History 1ppd tob x 22yrs quit 8yrs ago daily glass etoh Physical Exam Vital Signs nad heart reg lung cta abd s/nt ext no edema no pain to palpation over chest or left shoulder. Vital Signs Date Time Temp Pulse Resp B/P (MAP) Pulse Ox O2 Delivery O2 Flow Rate FiO2 07/10/17 17:38 49 18 183/81 (115) 97 Room Air 07/10/17 17:17 55 24 212/95 (134) 98 07/10/17 17:09 48 18 97 07/10/17 13:55 98.9 65 18 213/102 (139) 97 Room Air Laboratory Laboratory Tests Test 07/10/17 15:05 White Blood Count 5.6 Red Blood Count 4.01 Hemoglobin 13.4 Hematocrit 38.9 Mean Corpuscular Volume 97.2 Mean Corpuscular Hemoglobin 33.5 Mean Corpuscular Hemoglobin Concent 34.5 Red Cell Distribution Width 13.5 Platelet Count 191 Mean Platelet Volume 8.2 Neutrophils (%) (Auto) 52.7 Lymphocytes (%) (Auto) 35.7 Monocytes (%) (Auto) 8.9 Eosinophils (%) (Auto) 1.6 Basophils (%) (Auto) 1.1 Neutrophils # (Auto) 3.0 Lymphocytes # (Auto) 2.0 Monocytes # (Auto) 0.5 Eosinophils # (Auto) 0.1 Basophils # (Auto) 0.1 CBC Comment DIFF FINAL Differential Comment Prothrombin Time 10.1 Prothromb Time International Ratio 1.0 Activated Partial Thromboplast Time 29.4 Blood Urea Nitrogen 10 Creatinine 0.64 Random Glucose 92 Total Protein 7.6 Albumin 4.0 Calcium Level 8.6 Magnesium Level 2.0 Alkaline Phosphatase 92 Aspartate Amino Transf (AST/SGOT) 24 Alanine Aminotransferase (ALT/SGPT) 47 Total Bilirubin 0.3 Sodium Level 141 Potassium Level 4.0 Chloride Level 105 Carbon Dioxide Level 29.5 Anion Gap 7 Estimat Glomerular Filtration Rate 94 Total Creatine Kinase 222 Creatine Kinase MB 6.1 Creatine Kinase MB % 2.7 Troponin I 0.07 Lipase 146 Result Diagram: 07/10/17 1505 07/10/17 1505 Caprini VTE Risk Assessment Caprini VTE Risk Assessment: Mod/High Risk (score >= 2) Caprini Risk Assessment Model Point Value = 1 Point Value = 2 Point Value = 3 Point Value = 5 Age 41-60 Minor surgery BMI > 25 kg/m2 Swollen legs Varicose veins or History of unexplained or recurrent spontaneous Oral contraceptives or hormone replacement Sepsis (< 1 month) Serious lung disease, including pneumonia (< 1 month) Abnormal pulmonary function Acute myocardial infarction Congestive heart failure (< 1 month) History of inflammatory bowel disease Medical patient at bed rest Age 61-74 Arthroscopic surgery Major open surgery (> 45 min) Laparoscopic surgery (> 45 min) Malignancy Confined to bed (> 72 hours) Immobilizing plaster cast Central venous access Age >= 75 History of VTE Family history of VTE Factor V Leiden Prothrombin [id number] Lupus anticoagulant Anticardiolipin antibodies Elevated serum homocysteine Heparin-induced thrombocytopenia Other congenital or acquired thrombophilia Stroke (< 1 month) Elective arthroplasty Hip, pelvis, or leg fracture Acute spinal cord injury (< 1 month) Prophylaxis Regimen Total Risk Factor Score Risk Level Prophylaxis Regimen 0-1 Low Early ambulation 2 Moderate Order ONE of the following: *Sequential Compression Device (SCD) *Heparin 5000 units SQ BID 3-4 Higher Order ONE of the following medications: *Heparin 5000 units SQ TID *Enoxaparin/Lovenox 40 mg SQ daily (WT < 150 kg, CrCl > 30 mL/min) *Enoxaparin/Lovenox 30 mg SQ daily (WT < 150 kg, CrCl > 10-29 mL/min) *Enoxaparin/Lovenox 30 mg SQ BID (WT < 150 kg, CrCl > 30 mL/min) AND/OR *Sequential Compression Device (SCD) 5 or more Highest Order ONE of the following medications: *Heparin 5000 units SQ TID (Preferred with Epidurals) *Enoxaparin/Lovenox 40 mg SQ daily (WT < 150 kg, CrCl > 30 mL/min) *Enoxaparin/Lovenox 30 mg SQ daily (WT < 150 kg, CrCl > 10-29 mL/min) *Enoxaparin/Lovenox 30 mg SQ BID (WT < 150 kg, CrCl > 30 mL/min) AND *Sequential Compression Device (SCD) Assessment and Plan Problem List: (1) Chest pain ICD Codes: R07.9 - Chest pain, unspecified Status: Acute Plan: 1..... acute cp radiation to left shoulder/arm ..... elevated troponin. ekg no ischemic changes pt has had elevated but flat trop's in 2016 and 2017 with negative nuc stress testing. but she says sx's are different than on those presentation. Her ck was elevated but ckmb percent nml. .....[facility] 2005. 50-60% first diagonal dz 2. htn with severe elevation 3. hyperlipidemia plan cont telemetry and ce's trend cont asa, statin, ntg unable to give bb due to bradycardia pt would like to see cp cardiology to discuss ischemic w/up ...?lhc or repeat lexiscan cont home bp meds. prn meds. dvt prophylaxis. (2) HTN (hypertension), benign ICD Codes: I10 - Essential (primary) hypertension Status: Acute (3) CAD (coronary artery disease) ICD Codes: I25.10 - CAD (coronary artery disease) Status: Chronic Problem Qualifiers (1) Chest pain: Qualified Codes: R07.9 - Chest pain, unspecified Desmond Bowers MD Jul 10, 2017 17:44
[2017-07-10] MEDS ORDERED: cloNIDine HCL 0.1 MG TAB PO PRN (17:45)
[2017-07-10] MEDS ORDERED: ACETAMINOPHEN 325 MG TAB PO PRN (17:45)
[2017-07-10] MEDS ORDERED: ONDANSETRON HCL 4 MG/2 ML VIAL IV PUSH PRN (17:45)
[2017-07-10 19:15] LABS: TROPONIN I 0.06 NG/ML (0.02-0.05)
[2017-07-10] MEDS: ATORVASTATIN 80 MG TAB PO SCH (22:40)
[2017-07-10] MEDS: LOSARTAN 50 MG TAB PO SCH (22:40)
[2017-07-10] MEDS: MORPHINE SULFATE 2 MG/ML INJ IV PRN (22:41)
[2017-07-11] MEDS: NITROGLYCERIN 2% OINT 1 GM PACKET TOPICAL SCH ×2 (00:19→05:46)
[2017-07-11 00:38] VITALS: BP 117/63; PULSE 42; RESP 17; TEMP 97.6; O2SAT 94
[2017-07-11 02:13] LABS: TROPONIN I 0.07 NG/ML (0.02-0.05)
[2017-07-11] MEDS: MORPHINE SULFATE 2 MG/ML INJ IV PRN (02:38)
[2017-07-11 04:00] VITALS: BP 143/83; PULSE 45; RESP 18; TEMP 97.1; O2SAT 98
[2017-07-11] MEDS: MORPHINE SULFATE 2 MG/ML INJ IV PUSH PRN ×4 (07:48→21:28)
--- NOTE | 2017-07-11 07:48 | PD.CONS ---
HPI Service cardiology Consult Requested By Reason for Consult chest pain Primary Care Physician Stanford Yadav MD History of Present Illness This is a 61 yo WF with history of HTN and CAD who presented with left-sided chest pain radiating to L shoulder yesterday. Symptoms were non-exertional and lasted approximately 5 hours and alleviated with morphine. this morning symptom returned feeling like "a bolt of lightning" briefly to chest now with continued vague chest discomfort. No SOB. Previous cardiac catheterization in 2005 showed mild-mod non-obstructive CAD to first diagonal branch. lexiscan in December 2016 did not show ischemia. EKG does not demonstrate concerning ST changes and troponin 0.07 x 3. (Rhoda Waters) Review of Systems Consitutional: DENIES: Fatigue, Fever, Chills, Weight gain, Weight loss Cardiovascular: DENIES: Chest pain, Palpitations, Syncope, Tachycardia Gastrointestinal: DENIES: Nausea, Vomiting, Change in bowel habits, Reflux, Bloody stools, Melena (Rhoda Waters) Past Family Social History Allergies: Coded Allergies: amlodipine (Unverified Allergy, Severe, legs swelling, 07/10/17) Past Medical History [facility] 2005. 50-60percent first diag 2015 and 2017 neg nuc stress testing htn hyperlipidemia hysterectomy Past Surgical History Past Medical History [facility] 2005. 50-60percent first diag hysterectomy Reported Medications Reported Meds & Active Scripts Active Lorazepam 0.5 Mg Tab 0.5 Mg PO DAILY PRN prn Reported Aspirin 325 Mg Tab 325 Mg PO DAILY Atorvastatin (Atorvastatin Calcium) 80 Mg Tab 80 Mg PO HS Hydrochlorothiazide 25 Mg Tab 25 Mg PO DAILY Losartan (Losartan Potassium) 50 Mg Tab 50 Mg PO BID Active Ordered Medications Current Medications Medications (Trade) Dose Ordered Sig/Amina Route Start Time Stop Time Status Last Admin (Catapres) 0.1 mg Q6H PRN PO 07/10/17 17:45 07/10/17 19:29 (Tylenol) 650 mg Q4H PRN PO 07/10/17 17:45 (Zofran Inj) 4 mg Q6HR PRN IV PUSH 07/10/17 17:45 (Nitroglycerin 2% Oint) 0.5 inch Q6HR TOPICAL 07/11/17 00:00 07/11/17 05:46 (Aspirin) 325 mg DAILY PO 07/11/17 09:00 (Lipitor) 80 mg HS PO 07/10/17 21:00 07/10/17 22:40 (Hydrodiuril) 25 mg DAILY PO 07/11/17 09:00 (Cozaar) 50 mg BID PO 07/10/17 21:00 07/10/17 22:40 (Morphine Inj) 2 mg Q4H PRN IV PUSH 07/11/17 07:45 Family History nc Social History 1ppd tob x 22yrs quit 8yrs ago daily 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 (Rhoda Waters) Physical Exam Vital Signs Vital Signs Date Time Temp Pulse Resp B/P (MAP) Pulse Ox O2 Delivery O2 Flow Rate FiO2 07/11/17 04:00 97.1 45 18 143/83 (103) 98 07/11/17 00:38 97.6 42 17 117/63 (81) 94 07/10/17 22:52 97.6 46 16 124/63 (83) 94 07/10/17 20:22 52 18 117/55 (75) 96 Nasal Cannula 2.00 07/10/17 19:50 48 18 175/81 (112) 97 Nasal Cannula 2.00 07/10/17 19:33 48 18 183/84 (117) 97 Nasal Cannula 2.00 07/10/17 17:38 49 18 183/81 (115) 97 Room Air 07/10/17 17:17 55 24 212/95 (134) 98 07/10/17 17:09 48 18 97 07/10/17 13:55 98.9 65 18 213/102 (139) 97 Room Air Physical Exam GENERAL: SKIN: Warm and dry. HEAD: Atraumatic. Normocephalic. EYES: Pupils equal and round. No scleral icterus. ENT: No nasal bleeding or discharge. NECK: Trachea midline. No JVD. CARDIOVASCULAR: Regular rate and rhythm. no murmurs RESPIRATORY: No accessory muscle use. Clear to auscultation. Breath sounds equal bilaterally. GASTROINTESTINAL: Abdomen soft, non-tender, nondistended. MUSCULOSKELETAL: Extremities without clubbing, cyanosis, or edema. No obvious deformities. NEUROLOGICAL: Awake and alert. No obvious cranial nerve deficits. Normal speech. PSYCHIATRIC: Appropriate mood and affect; insight and judgment normal. Laboratory Laboratory Tests Test 07/10/17 15:05 07/10/17 18:33 07/11/17 01:35 White Blood Count 5.6 Red Blood Count 4.01 Hemoglobin 13.4 Hematocrit 38.9 Mean Corpuscular Volume 97.2 Mean Corpuscular Hemoglobin 33.5 Mean Corpuscular Hemoglobin Concent 34.5 Red Cell Distribution Width 13.5 Platelet Count 191 Mean Platelet Volume 8.2 Neutrophils (%) (Auto) 52.7 Lymphocytes (%) (Auto) 35.7 Monocytes (%) (Auto) 8.9 Eosinophils (%) (Auto) 1.6 Basophils (%) (Auto) 1.1 Neutrophils # (Auto) 3.0 Lymphocytes # (Auto) 2.0 Monocytes # (Auto) 0.5 Eosinophils # (Auto) 0.1 Basophils # (Auto) 0.1 CBC Comment DIFF FINAL Differential Comment Prothrombin Time 10.1 Prothromb Time International Ratio 1.0 Activated Partial Thromboplast Time 29.4 Blood Urea Nitrogen 10 Creatinine 0.64 Random Glucose 92 Total Protein 7.6 Albumin 4.0 Calcium Level 8.6 Magnesium Level 2.0 Alkaline Phosphatase 92 Aspartate Amino Transf (AST/SGOT) 24 Alanine Aminotransferase (ALT/SGPT) 47 Total Bilirubin 0.3 Sodium Level 141 Potassium Level 4.0 Chloride Level 105 Carbon Dioxide Level 29.5 Anion Gap 7 Estimat Glomerular Filtration Rate 94 Total Creatine Kinase 222 227 142 Creatine Kinase MB 6.1 5.6 Creatine Kinase MB % 2.7 2.5 Troponin I 0.07 0.06 0.07 Lipase 146 (Rhoda Waters) Result Diagram: 07/10/17 1505 07/10/17 1505 Imaging Last 24 hours Impressions Chest X-Ray 07/10/17 1427 Signed Impressions: Service Date/Time: Monday, July 10, 2017 14:48 - CONCLUSION: Bibasilar subsegmental atelectasis/scarring. No acute disease. Palmer Alicea MD (Rhoda Waters) Assessment and Plan Problem List: (1) HTN (hypertension), benign ICD Codes: I10 - Essential (primary) hypertension Status: Acute (2) CAD (coronary artery disease) ICD Codes: I25.10 - CAD (coronary artery disease) Status: Chronic (3) Atypical chest pain ICD Codes: R07.89 - Other chest pain Status: Acute Assessment and Plan 61 yo WF with history of HTN and CAD who presented with non-exertional left- sided chest pain radiating to L shoulder yesterday. atypical chest pain- EKG unremarkable. troponin mildly elevated. currently symptomatic. recent lexiscan did not show ischemia consider lhc vs. repeat lexiscan keep npo (Rhoda Waters) Assessment and Plan unstable anginal symptoms intermediate troponin recent negative lexiscan but recurrent/progressive symptoms plan for LHC today NPO (Sincere Cifuentes MD) Rhoda Waters Jul 11, 2017 07:48 Sincere Cifuentes MD Jul 11, 2017 08:12
[2017-07-11 08:00] VITALS: BP 109/68; PULSE 51; RESP 16; TEMP 97.4; O2SAT 97
[2017-07-11] MEDS ORDERED: HEPARIN-NS/PF INJ 1,000 ML ONE (08:22)
--- NOTE | 2017-07-11 08:31 | HHI.PR ---
Subjective Remarks Pt reports that she had some chest pain this morning which was similar to the chest pain that brought her into the hospital. No associated diaphoresis BP has been stable Objective Vitals Vital Signs Date Time Temp Pulse Resp B/P (MAP) Pulse Ox O2 Delivery O2 Flow Rate FiO2 07/11/17 04:00 97.1 45 18 143/83 (103) 98 07/11/17 00:38 97.6 42 17 117/63 (81) 94 07/10/17 22:52 97.6 46 16 124/63 (83) 94 07/10/17 20:22 52 18 117/55 (75) 96 Nasal Cannula 2.00 07/10/17 19:50 48 18 175/81 (112) 97 Nasal Cannula 2.00 07/10/17 19:33 48 18 183/84 (117) 97 Nasal Cannula 2.00 07/10/17 17:38 49 18 183/81 (115) 97 Room Air 07/10/17 17:17 55 24 212/95 (134) 98 07/10/17 17:09 48 18 97 07/10/17 13:55 98.9 65 18 213/102 (139) 97 Room Air Result Diagram: 07/10/17 1505 07/10/17 1505 Other Results Laboratory Tests Test 07/10/17 15:05 07/10/17 18:33 07/11/17 01:35 White Blood Count 5.6 TH/MM3 Red Blood Count 4.01 MIL/MM3 Hemoglobin 13.4 GM/DL Hematocrit 38.9 % Mean Corpuscular Volume 97.2 FL Mean Corpuscular Hemoglobin 33.5 PG Mean Corpuscular Hemoglobin Concent 34.5 % Red Cell Distribution Width 13.5 % Platelet Count 191 TH/MM3 Mean Platelet Volume 8.2 FL Neutrophils (%) (Auto) 52.7 % Lymphocytes (%) (Auto) 35.7 % Monocytes (%) (Auto) 8.9 % Eosinophils (%) (Auto) 1.6 % Basophils (%) (Auto) 1.1 % Neutrophils # (Auto) 3.0 TH/MM3 Lymphocytes # (Auto) 2.0 TH/MM3 Monocytes # (Auto) 0.5 TH/MM3 Eosinophils # (Auto) 0.1 TH/MM3 Basophils # (Auto) 0.1 TH/MM3 CBC Comment DIFF FINAL Differential Comment Prothrombin Time 10.1 SEC Prothromb Time International Ratio 1.0 RATIO Activated Partial Thromboplast Time 29.4 SEC Blood Urea Nitrogen 10 MG/DL Creatinine 0.64 MG/DL Random Glucose 92 MG/DL Total Protein 7.6 GM/DL Albumin 4.0 GM/DL Calcium Level 8.6 MG/DL Magnesium Level 2.0 MG/DL Alkaline Phosphatase 92 U/L Aspartate Amino Transf (AST/SGOT) 24 U/L Alanine Aminotransferase (ALT/SGPT) 47 U/L Total Bilirubin 0.3 MG/DL Sodium Level 141 MEQ/L Potassium Level 4.0 MEQ/L Chloride Level 105 MEQ/L Carbon Dioxide Level 29.5 MEQ/L Anion Gap 7 MEQ/L Estimat Glomerular Filtration Rate 94 ML/MIN Total Creatine Kinase 222 U/L 227 U/L 142 U/L Creatine Kinase MB 6.1 NG/ML 5.6 NG/ML Creatine Kinase MB % 2.7 % 2.5 % Troponin I 0.07 NG/ML 0.06 NG/ML 0.07 NG/ML Lipase 146 U/L Imaging Last Impressions Chest X-Ray 07/10/17 1427 Signed Impressions: Service Date/Time: Monday, July 10, 2017 14:48 - CONCLUSION: Bibasilar subsegmental atelectasis/scarring. No acute disease. Palmer Alicea MD Objective Remarks General: NAD, AAOx3 Chest: CTA Cardiac: Bradycardic, regular Abd: +BS, soft ND/NT Ext: No edema A/P Problem List: (1) Chest pain ICD Codes: R07.9 - Chest pain, unspecified Status: Acute Plan: Chest pain Elevated troponin Hx of CAD - Pt is a 61 y/o WF with hx of CAD who was admitted with acute chest pain with radiation to left shoulder/arm - She had noted mildly elevated but flat troponin. There were no ischemic EKG changes noted - She has had negative nuclear stress testing in 2016 and 2017 but pt says her sx's are different now than on those previous presentations - Her CK was elevated but CKMB percent is nml. - Pts last [facility] in 2005 noted 50-60% first diagonal dz - Cardiology is following - Pt is planned for [facility] today - Telemetry - Cont. ASA, statin, NTG, Morphine PRN - Unable to give BB due to bradycardia - DVT prophylaxis with SCDs HTN with severe elevation - Home meds continued - Clonidine PRN - Vasotec PRN Hyperlipidemia - Home meds continued (2) HTN (hypertension), benign ICD Codes: I10 - Essential (primary) hypertension Status: Acute (3) CAD (coronary artery disease) ICD Codes: I25.10 - CAD (coronary artery disease) Status: Chronic Assessment and Plan Patient examined. Assessment and plan formulated with Laney Alexander PA-C. I agree with the above. lhc done. 60percent in small diagonal branch. imdur recc. after c ...pt still c/o the same type of pain...now she says it can get worse when she rolls and puts weight on that left shoulder/chest... 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 unable to give toradol now just had contrast..will give dose solumedrol and go back for reassessment and ?dc later today Problem Qualifiers (1) Chest pain: Qualified Codes: R07.9 - Chest pain, unspecified Laney Alexander Jul 11, 2017 08:31 Desmond Bowers MD Jul 11, 2017 11:40
[2017-07-11] MEDS ORDERED: MIDAZOLAM HCL 2 MG/2 ML VIAL ONE (08:40)
[2017-07-11] MEDS ORDERED: HEPARIN SODIUM - IV 10,000 UNITS/10 ML VIAL ONE (08:41)
[2017-07-11] MEDS ORDERED: NITROGLYCERIN INJ 5 ML ONE (08:41)
[2017-07-11] MEDS: LOSARTAN 50 MG TAB PO SCH ×2 (09:00→21:23)
[2017-07-11] MEDS ORDERED: ASPIRIN 325 MG TAB PO SCH (09:00)
[2017-07-11] MEDS: HYDROCHLOROTHIAZIDE 25 MG TAB PO SCH (09:00)
[2017-07-11] MEDS ORDERED: MISC INFORMATION XX ONE (09:30)
--- NOTE | 2017-07-11 09:32 | CATHPROC ---
[employer] HIS Report Study Information Study Number Admission Scheduled Start Study Start [id number] Jul 10 2017 5:42PM 07/11/2017 Jul 11 2017 8:14AM [place] Service Cardiac Catheterization Admit Source Facility Department Emergency department [facility] - Harm Reduction Worker Physician and Clinical Staff Initial Sincere Kasper Hand Modeldemetrice Crocker RN, Ha Hand ModelMich Apodaca,SEBASTIAN Other cathlab, cathlab Recorder Satcey Tran,OPTOMETRIC TECH TECH2 Scrub New Luong RCIS(BS) Procedures Performed Procedure Location (Site) Vessel Name Coronary Angiograms LCA Left Coronary Coronary Angiograms RCA Right Coronary L Heart Cath Wire insertion Radial (right) Radial Art. Equipment Time Casino Floor Walker Description Size Mfg Part Number Used/Scraped TRANSDUCER, TRUWAVE [id number] 08:16 [employer] COYLE * Used W/STOCKCOCK *[id number] *[id number] 08:16 DN2K INDUSTRIES PACK, CCL CUSTOM * Used *[id number] 08:16 Spontaneously SUPPORT, ARTERIAL ADULT [id number] *[id number] Used [id number] 08:16 DN2K PACER PEN, SKIN DUAL W/ RULER * Used *[id number] 09:09 MEDTRONIC JL 3.5 DXTERITY CATHETER FR 5 Used *[id number] BAND, RADIAL COMPRESSION TR [id number] 09:19 [employer] MEDICAL 24CM Used SHORT 24 *[id number] BAND, RADIAL COMPRESSION TR [id number] 09:21 [employer] MED[employer] 24CM Used SHORT 24 *[id number] SHEATH, FR6 RADIAL PRELUDE 08:16 [employer] FR 6 [id number] Used EASE 11CM [id number] 08:16 [employer] WIRE, EXCHANGE 260CM 3MMJ 260CM Used *[id number] 08:16 NYCOMED OMNIPAQUE, 350 MG, 150ML 150ML [id number] Used [id number] 08:16 [employer] BLANKET,WARM AIR CCL * Used *[id number] History: Current Medications Medication Dosage/Unit Route Frequency Last Date/Time Taken Statins (any) History: Allergies Allergy Reaction amlodipine legs swelling History: Risk Factors Family History of Hypertension Dyslipidemia Previous IL Previous Heart Failure Premature CAD Yes Yes No No No Prior Valve Prior PCI Prior CABG Surgery No No No Cerebrovascular Peripheral Artery Chronic Lung On Dialysis Diabetes Disease Disease Disease No No No No No History: Symptoms/Diagnosis Selection Items Angina-unstable History: Stress Tests Stress or Imaging Studies Performed No History: Other Disease Selection Items CAD HTN History: Other Current Smoker Method Quit Packs a Day Years Used Pack Years No Cigarettes 8 Years Ago 1 22 22 Labs Hgb (g/dl) Hct (%) RBC (MIL/MM3) WBC (l/cumm) Platelets (thousands) 11.60-17.00 35.00-51.00 4.00-5.90 4.00-11.00 150.00-450.00 13.4 38.9 4 5.6 191 Glucose (mg/dl) BUN (mg/dl) Creatinine (mg/dl) BUN:Creatinine (1:x) 74.00-106.00 7.00-18.00 0.50-1.30 10.00-20.00 92 10 0.6 16.7 Na (meq/l) K (meq/l) Cl (meq/l) CO2 (mmol/L) Ca (mg/dl) 136.00-145.00 3.50-5.10 98.00-107.00 21.00-32.00 8.50-10.10 141 4 105 29.5 8.6 Troponin I (ng/ml) CPK-MB (ng/ML) 0.02-0.05 0.50-3.60 0.07 5.6 Medication Medication Total Dose (Bolus/Oral) Medication Total Dosage/Unit 1% XYLOCAINE 10 mL FENTANYL 50 mcg HEPARIN 5000 units NTG (IC) 200 mcg OXYGEN 2 l/min VERSED 2 mg Medications (Bolus/Oral) Medication Time Given Dosage/Unit Administered By Reason VERSED 07/11/2017 9:06:08 AM 2 mg Ha Crocker RN 2 mg VERSED given in lab by Ha Crocker RN in Right Antecubital via Peripheral IV. Ordered by Sincere Cifuentes. FENTANYL 07/11/2017 9:07:17 AM 50 mcg Ha Crocker RN 50 mcg FENTANYL given in lab by Ha Crocker RN in Right Antecubital via Peripheral IV. Ordered by Sincere Owens. 1% XYLOCAINE 07/11/2017 9:09:12 AM 10 mL Sincere Cifuentes 10 mL 1% XYLOCAINE given in lab by Sincere Cifuentes in Right Radial via Subcutaneous. Ordered by Sincere Cifuentes. NTG (IC) 07/11/2017 9:10:36 AM 200 mcg Sincere Cifuentes 200 mcg NTG (IC) given in lab by Sincere Cifuentes in Right Radial via Intra-coronary. Ordered by Sincere Cifuentes. HEPARIN 07/11/2017 9:11:17 AM 5000 units Ha Crocker RN 5000 units HEPARIN given in lab by Ha Crocker RN in Right Antecubital via Peripheral IV. Ordered by Sincere Cifuentes. OXYGEN 07/11/2017 9:32:06 AM 2 l/min Ha Crocker RN 2 l/min OXYGEN given in lab by Ha Crocker RN via Nasal. Ordered by Sincere Cifuentes. Medication (Drip) Medication Time Given Dosage/Unit Concentration/Unit Diluent (ml) Solutio n IV Bolus 07/11/2017 9:12:32 AM 500 mL (Bolus) 500 NaCl .9 500 mL (Bolus) IV Bolus given in lab by Ha Crocker RN in Right Antecubital via Peripheral IV. Using NaCl .9. Ordered by Sincere Cifuentes. IV Solutions 07/11/2017 8:33:45 AM 0 mL (IV) 500 NaCl .9 IV Solutions given in lab by jazmine lucero in Right Antecubital via Peripheral IV. Pump/Drip Flow = 20 ml/hr using NaCl .9. Ordered by Sincere Cifuentes. Initial Case Assessment Cardiovascular HR NIBP Chest Pain 48 168/91 3 Edema Present Skin color Skin None Normal Warm Dry Neurological State Oriented to time-place- Alert Moves all extremities person Respiration - General Respiration Rate SpO2 (%) (B/min) 15 95 Final Case Assessment Cardiovascular HR NIBP Chest Pain 63 113/68 0 Edema Present Skin color Skin None Normal Warm Dry Neurological State Oriented to time-place- Alert Moves all extremities person Respiration - General Respiration Rate SpO2 (%) O2 (lpm) (B/min) 15 96 2 Chronological Log Time Study Chronological Log 8:26:29 Patient arrived via Bed. 8:26:30 Patient Name, D.O.B, / Armband Verified By R.N. 8:33:32 Consent signed by the physician and the patient and verified by the Harm Reduction Worker staff. Vitals capture started with the following parameters, Patient=Adult, Interval=5 min, Initial Pr suhnfv=392 mmHg, 8:33:34 Deflation Rate=5 mmHg, Cuff placed on Left Arm 8:33:37 Pre-op and post- op instructions given; patient acknowledges understanding of instructions. 8:33:39 Patient has been NPO for More than 6Hrs. 8:33:40 Skin Breakdown- 8:33:41 Patient Warmer Placed on the Table. 8:33:44 A # 20 IV was noted in the Antecubital (right). Grade = 0 IV Solutions given in lab by cathlab, cathlab in Right Antecubital via Peripheral IV. Pump/Drip Flow = 20 ml/hr using 8:33:45 NaCl .9. Ordered by Sincere Cifuentes. 8:33:49 History and physical on the chart or being dictated. 8:34:45 HR=48 bpm, SPOR=317/91 mmhg, SpO2=95.0 %, Resp=15 B/min, Pain=0, Miguel=10, Wagner=2 Assessment: Initial Case, HR=48 BPM, HIWO=359/91 mmhg, Chest Pain=3, Edema=None, Color=Normal, S kin = Warm, Dry 8:35:33 Neurological: State=Alert, Ox3, PALMA Respiration: Resp=15 B/min, SpO2=95 % 8:38:52 Reference ECG taken 8:39:21 HR=46 bpm, BUZA=961/70 mmhg, SpO2=93.0 %, Resp=13 B/min, Pain=0, Miguel=10, Wagner=2 8:40:15 Right Radial and right groin prepped with 2% chlorhexidine, and draped after a 3 min. waitin g time. 8:44:10 HR=44 bpm, FUSK=805/66 mmhg, SpO2=97.0 %, Resp=13 B/min, Pain=0, Miguel=10, Wagner=2 8:46:45 Pressure channel 1 zeroed. 8:49:52 HR=44 bpm, UBTN=968/60 mmhg, SpO2=99.0 %, Resp=12 B/min, Pain=0, Miguel=10, Wagner=2 8:54:08 HR=47 bpm, HMVH=739/63 mmhg, SpO2=97.0 %, Resp=14 B/min, Pain=0, Miguel=10, Wagner=2 8:59:50 HR=46 bpm, WZJO=690/60 mmhg, SpO2=97 %, Resp=15 B/min, Pain=0, Miguel=10, Wagner=2 9:04:08 HR=48 bpm, ETNS=365/63 mmhg, SpO2=96 %, Resp=12 B/min, Pain=0, Miguel=10, Wagner=2 9:06:08 2 mg VERSED given in lab by Ha Crocker RN in Right Antecubital via Peripheral IV. Ordered by Sincere Cifuentes. 9:07:17 50 mcg FENTANYL given in lab by Ha Crocker RN in Right Antecubital via Peripheral IV. Orde red by Sincere Cifuentes. Time Out. Correct patient, correct procedure, correct physician, power injector not loaded with contrast with surgical 9:08:24 team present. Time Out Concurred by MD and individual staff in procedure. 9:09:11 HR=51 bpm, KJKK=930/60 mmhg, SpO2=96 %, Resp=14 B/min, Pain=0, Miguel=10, Wagner=2 9:09:11 Case Start 9:09:12 10 mL 1% XYLOCAINE given in lab by Sincere Cifuentes in Right Radial via Subcutaneous. Ordered by Sincere Cifuentes. 9:10:04 Access site was Radial Artery. A SHEATH, FR6 RADIAL PRELUDE EASE 11CM FR 6 was advanced into the Radial (right) using the Modif ied Seldinger 9:10:19 technique. 9:10:36 200 mcg NTG (IC) given in lab by Sincere Cifuentes in Right Radial via Intra-coronary. Ordered by Sincere Cifuentes. 9:11:17 5000 units HEPARIN given in lab by Ha Crocker RN in Right Antecubital via Peripheral IV. O rdered by Sincere Cifuentes. A JR 5.0 INFINITI CATHETER FR 5 was advanced over a wire. OMNIPAQUE, 350 MG, 150ML 150ML was use d for 9:11:38 injections. 500 mL (Bolus) IV Bolus given in lab by Ha Crocker RN in Right Antecubital via Peripheral IV. Using NaCl .9. Ordered 9:12:32 by Sincere Cifuentes. Recorded Pressure: LV, HR=54, Condition=Condition 1 9:12:39 (Left Ventricle) LV 86/9/13 Recorded Pressure: LV, Ao, HR=54, Condition=Condition 1 9:13:00 (Left Ventricle) LV 83/3/13, (Aorta) Ao 82/46/60 9:13:41 The RCA was injected and visualized at various angles. OMNIPAQUE, 350 MG, 150ML 150ML used. 9:14:10 HR=54 bpm, NIBP=94/51 mmhg, SpO2=90.0 %, Resp=12 B/min, Pain=0, Miguel=10, Wagner=2 After removing the current catheter a JL 3.5 DXTERITY CATHETER FR 5 was advanced over a WIRE, EX CHANGE 260CM 9:14:18 3MMJ 260CM. 9:15:58 The LCA was injected and visualized at various angles. OMNIPAQUE, 350 MG, 150ML 150ML used. Recorded Pressure: Ao, HR=59, Condition=Condition 1 9:16:00 (Aorta) Ao 64/33/46 9:16:30 NIBP STAT measurement started. 9:17:00 HR=59 bpm, DEPJ=526/54 mmhg, SpO2=95 %, Resp=15 B/min, Pain=0, Miguel=10, Wagner=2 9:17:58 A WIRE, EXCHANGE 260CM 3MMJ 260CM was inserted via Radial (right). 9:18:09 Catheter was removed 9:18:15 Case End 9:18:36 Catheter(s) removed without difficulty Radial Compression Device Used. 12 mLs of air placed in BAND, RADIAL COMPRESSION TR SHORT 24 2 4CM. Affected 9:18:51 hand 96 % O2 saturation. 9:19:07 HR=63 bpm, ZRKN=879/68 mmhg, SpO2=96 %, Resp=13 B/min Assessment: Final Case, HR=63 BPM, APVM=429/68 mmhg, Chest Pain=0, Edema=None, Color=Normal, S kin = Warm, Dry 9:21:14 Neurological: State=Alert, Ox3, PALMA Respiration: Resp=15 B/min, SpO2=96 %, O2=2 lpm 9:24:10 HR=54 bpm, KTKJ=524/68 mmhg, SpO2=96 %, Resp=13 B/min, Pain=0, Miguel=10, Wagner=2 9:25:45 Vitals capture stopped. 9:26:09 No case complications noted. 9:26:12 Cine recording checked. 9::19 Bedside Report will be given. 9::23 Contrast Scanned 9:: A Left Heart Cath was performed. 9:26:27 Patient moved to stretcher 9:32:06 2 l/min OXYGEN given in lab by Ha Crocker RN via Nasal. Ordered by Sincere Cifuentes. End Study - Contrast Media Used In Study Contrast Total Opened (mL) Total Used (mL) Total Wasted (mL) Omnipaque 30 30 0 End Study - Maximum Contrast Load Max Contrast Load (mL) 568.2 End Study - Radiation Exposure Fluoro Time (minutes) 1.2 End Study - Patient Disposition Complications Transferred To Telemetry Bed
[2017-07-11] MEDS ORDERED: PNEUMOCOCCAL POLYVALENT INJ 25 MCG/0.5 ML SYR IM ONE (10:00)
--- NOTE | 2017-07-11 10:01 | MA ---
cc: BEE PERSAUD DATE 07/11/2017 INDICATION [id number] ME. PROCEDURE PERFORMED 1. Fluoroscopy with interpretation. 2. Coronary angiography 3. Left heart catheterization METHOD The risks, benefits and alternatives discussed with the patient. The patient understood and consented to the procedure. PROCEDURE NOTE The patient brought into the catheterization lab, placed on the catheterization table. The right wrist was prepped and draped in a sterile fashion. The right wrist was anesthetized with 2% lidocaine. The right radial artery was cannulated and a 6-Uzbek 7 cm sheath was placed without difficulty. INTRAVENTRICULAR HEMODYNAMICS Pressure measured at 83/3 mmHg with a left ventricular end-diastolic pressure of 13 mmHg. There is no significant aortic stenosis by transaortic valvular pullback gradient. CORONARY ANGIOGRAPHY 1. Left main coronary artery is angiographically normal. 2. The left anterior descending coronary is tortuous and has mild luminal irregularities. There was mild calcium present proximally. There is a small diagonal branch in the mid segment which has a 60% ostial stenosis, but it is a small caliber sized vessel. 3. Ramus intermedius branch is a moderate caliber sized vessel with minimal luminal irregularities. There is a first obtuse marginal branch that is very small in caliber size with minimal luminal irregularities. 4. Right coronary is a dominant vessel giving rise to a posterior descending branch. The right coronaries has minor luminal irregularities. CONCLUSIONS 1. Moderate small branch vessel coronary artery disease of a diagonal branch. 2. Normal left ventricular systolic function. PLAN We will monitor the patient closely for any post procedural complications. Diagonal branch is rather small an ostial in location which is not easily amenable to percutaneous intervention. We will plan for medical therapy. We can add a long-acting nitrate to her medical regimen. Anticipate discharge potentially later today. MD MCKAYLA Rhodes/BOOM /9:19 AM /9:42 AM
[2017-07-11] MEDS ORDERED: methylPREDNISolone SOD SUCC 125 MG/2 ML VIAL IV PUSH ONE (11:45)
[2017-07-11 20:25] VITALS: BP 158/87; PULSE 62; PULSE 72; RESP 18; TEMP 98.7; O2SAT 97
[2017-07-11] MEDS: NAPROXEN 500 MG TAB PO SCH (21:23)
[2017-07-11] MEDS: ATORVASTATIN 80 MG TAB PO SCH (21:23)
[2017-07-11 22:00] VITALS: BP 158/87; PULSE 72; PULSE 77; RESP 18; TEMP 98.7; O2SAT 97
[2017-07-12] VITALS (10 sets, daily range): BP systolic 131–143; BP diastolic 70–82; PULSE 54–71; RESP 18–20; TEMP 97.6–98.2; O2SAT 94–97
[2017-07-12] MEDS ORDERED: ISOSORBIDE MONONITRATE 60 MG TAB PO SCH (07:00)
--- NOTE | 2017-07-12 07:45 | PD.CARD.PN ---
Subjective Subjective Remarks Still with some chest pain overnight, but much less severe than it was yesterday and feeling better overall. Happy to try Imdur. All questions answered. (Konstantin Saenz) Objective Medications Current Medications Medications (Trade) Dose Ordered Sig/Amina Route Start Time Stop Time Status Last Admin (Catapres) 0.1 mg Q6H PRN PO 07/10/17 17:45 07/10/17 19:29 (Tylenol) 650 mg Q4H PRN PO 07/10/17 17:45 (Zofran Inj) 4 mg Q6HR PRN IV PUSH 07/10/17 17:45 (Lipitor) 80 mg HS PO 07/10/17 21:00 07/11/17 21:23 (Hydrodiuril) 25 mg DAILY PO 07/11/17 09:00 (Cozaar) 50 mg BID PO 07/10/17 21:00 07/11/17 21:23 (Morphine Inj) 2 mg Q4H PRN IV PUSH 07/11/17 07:45 07/11/17 21:28 (Aspirin Chew) 81 mg DAILY PO 07/12/17 09:00 (Imdur) 60 mg DAILY@07 PO 07/12/17 07:00 07/12/17 05:52 (Naprosyn) 500 mg Q12HR PO 07/11/17 21:00 07/11/17 21:23 Vital Signs / I&O Vital Signs Date Time Temp Pulse Resp B/P (MAP) Pulse Ox O2 Delivery O2 Flow Rate FiO2 07/12/17 06:00 54 07/12/17 05:00 56 07/12/17 04:00 59 07/12/17 04:00 Nasal Cannula 2.00 21 07/12/17 04:00 97.6 62 18 142/77 (98) 97 07/12/17 03:00 58 07/12/17 02:00 62 07/12/17 00:00 98.2 66 18 137/70 (92) 96 07/12/17 00:00 54 07/12/17 00:00 Nasal Cannula 2.00 21 07/11/17 22:00 98.7 72 18 158/87 (110) 97 07/11/17 22:00 77 07/11/17 20:25 62 07/11/17 20:25 98.7 72 18 158/87 (110) 97 07/11/17 11:12 07/11/17 09:53 100 Room Air 07/11/17 08:00 97.4 51 16 109/68 (82) 97 I/O 07/11/17 07/11/17 07/11/17 07/12/17 07/12/17 07/12/17 07:00 15:00 23:00 07:00 15:00 23:00 Intake Total 450 ml 480 ml Balance 450 ml 480 ml Intake Oral 450 ml 480 ml # Voids 1 2 Physical Exam GENERAL: Well-developed well-nourished. In no acute distress. NECK: No carotid bruits. No JVD. CARDIOVASCULAR: Regular rate and rhythm. No murmur appreciated. Right radial site clean. RESPIRATORY: No accessory muscle use. Clear to auscultation. Breath sounds equal bilaterally. MUSCULOSKELETAL: No clubbing or cyanosis. No edema. NEUROLOGICAL: Awake and alert. Normal speech. Imaging Last Impressions Chest X-Ray 07/10/17 0067 Signed Impressions: Service Date/Time: Monday, July 10, 2017 14:48 - CONCLUSION: Bibasilar subsegmental atelectasis/scarring. No acute disease. Palmer Alicea MD (Konstantin Saenz) Assessment and Plan Problem List: (1) HTN (hypertension), benign ICD Codes: I10 - Essential (primary) hypertension Status: Acute (2) CAD (coronary artery disease) ICD Codes: I25.10 - CAD (coronary artery disease) Status: Chronic (3) Atypical chest pain ICD Codes: R07.89 - Other chest pain Status: Acute Assessment and Plan 61 yo WF with history of HTN and CAD who presented with non-exertional left- sided chest pain radiating to L shoulder atypical chest pain. Unstable anginal symptoms. Intermediate troponin. Mild nonobstructive CAD. - Cardiac catheterization 07/11 showed moderate small vessel coronary artery disease in the diagonal branch not amenable to percutaneous intervention with otherwise no other significant CAD. - Plan for medical therapy, added Imdur - Continue aspirin, statin Cardiology cleared for discharge (Konstantin Saenz) Assessment and Plan agree with above med therapy no BB due to bradycardia FU PCP in 1-2 weeks (Sincere Cifuentes MD) Konstantin Saenz Jul 12, 2017 07:45 Sincere Cifuentes MD Jul 12, 2017 08:53
[2017-07-12] MEDS: LOSARTAN 50 MG TAB PO SCH (08:03)
[2017-07-12] MEDS: HYDROCHLOROTHIAZIDE 25 MG TAB PO SCH (08:03)
[2017-07-12] MEDS: NAPROXEN 500 MG TAB PO SCH (08:07)
[2017-07-12] MEDS ORDERED: ASPIRIN 81 MG CHEW TAB PO SCH (09:00)
--- NOTE | 2017-07-12 09:08 | HHI.PR ---
Subjective Remarks pain in left chest minimal now' ready for d/c home. Objective Vitals heart reg lung cta abd s/nt ext no edema Vital Signs Date Time Temp Pulse Resp B/P (MAP) Pulse Ox O2 Delivery O2 Flow Rate FiO2 07/12/17 08:09 95 07/12/17 08:00 97.7 63 20 143/82 (102) 94 07/12/17 06:00 54 07/12/17 05:00 56 07/12/17 04:00 59 07/12/17 04:00 Nasal Cannula 2.00 21 07/12/17 04:00 97.6 62 18 142/77 (98) 97 07/12/17 03:00 58 07/12/17 02:00 62 07/12/17 00:00 98.2 66 18 137/70 (92) 96 07/12/17 00:00 54 07/12/17 00:00 Nasal Cannula 2.00 21 07/11/17 22:00 98.7 72 18 158/87 (110) 97 07/11/17 22:00 77 07/11/17 20:25 62 07/11/17 20:25 98.7 72 18 158/87 (110) 97 07/11/17 11:12 07/11/17 09:53 100 Room Air Result Diagram: 07/10/17 1505 07/10/17 1505 Imaging Last Impressions Chest X-Ray 07/10/17 1427 Signed Impressions: Service Date/Time: Monday, July 10, 2017 14:48 - CONCLUSION: Bibasilar subsegmental atelectasis/scarring. No acute disease. Palmer Alicea MD A/P Problem List: (1) Chest pain ICD Codes: R07.9 - Chest pain, unspecified Status: Acute Plan: Chest pain Elevated troponin Hx of CAD htn - Pt is a 61 y/o WF with hx of CAD who was admitted with acute chest pain with radiation to left shoulder/arm - She had noted mildly elevated but flat troponin. There were no ischemic EKG changes noted - She has had negative nuclear stress testing in 2015 and 2016 but pt says her sx's are different now than on those previous presentations - Her CK was elevated but CKMB percent is nml. - Pts last [facility] in 2005 noted 50-60% first diagonal dz [facility] 07/11 shows diagonal branch 60% imdur added seems to be a msk component to her pain..better with naprosyn cont naprosyn x 3 days if pain returns then f/u pcp and consider ct chest. (2) HTN (hypertension), benign ICD Codes: I10 - Essential (primary) hypertension Status: Acute (3) CAD (coronary artery disease) ICD Codes: I25.10 - CAD (coronary artery disease) Status: Chronic Problem Qualifiers (1) Chest pain: Qualified Codes: R07.9 - Chest pain, unspecified Desmond Bowers MD Jul 12, 2017 09:08
[2017-07-12] MEDS ORDERED: NAPR500 PO (09:11)
[2017-07-12] MEDS ORDERED: ISOS60TA PO (09:11)
--- NOTE | 2017-07-12 09:11 | HHI.DCPOC ---
Discharge Care Plan Diagnosis: (1) Chest pain, musculoskeletal (2) CAD (coronary artery disease) Goals to Promote Your Health * To prevent worsening of your condition and complications * To maintain your health at the optimal level Directions to Meet Your Goals Take your medications as prescribed Follow your dietary instruction Follow activity as directed Keep your appointments as scheduled Take your immunizations and boosters as scheduled If your symptoms worsen call your PCP, if no PCP go to Urgent Care Center or Emergency Room Smoking is Dangerous to Your Health. Avoid second hand smoke Call the 24-hour hour crisis hotline for domestic abuse at Desmond Bowers MD Jul 12, 2017 09:11
--- NOTE | 2017-07-12 15:51 | EKG ---
Date Performed: 07/11/2017 Time Performed: 03:18:11 PTAGE: 61 years EKG: SINUS BRADYCARDIA BORDERLINE ECG PREVIOUS TRACING : 07/10/2017 14.59 Since previous tracing, no significant change noted DOCTOR: Ryne Joseph Interpretating Date/Time 07/12/2017 15:50:21
--- NOTE | 2017-07-12 15:57 | EKG ---
Date Performed: 07/10/2017 Time Performed: 14:59:12 PTAGE: 61 years EKG: SINUS BRADYCARDIA BORDERLINE ECG PREVIOUS TRACING : 01/12/2017 17.08 Since previous tracing, no significant change noted DOCTOR: Ryne Joseph Interpretating Date/Time 07/12/2017 15:56:42
== END 2017-07-12 13:55 | disposition home or self-care (01) ==
LOC: NEPC 13:54 → NEDA 17:42 → NEDH 21:52 → HCIN 07-11 20:29
PROVIDERS: ADMIT Hospitalist; ATTEND Hospitalist
DX: I25.10 Atherosclerotic heart disease of native coronary artery without angina pectoris (principal); I10 Essential (primary) hypertension; I34.1 Nonrheumatic mitral (valve) prolapse; E78.5 Hyperlipidemia, unspecified; F12.90 Cannabis use, unspecified, uncomplicated; J98.11 Atelectasis; Z90.710 Acquired absence of both cervix and uterus
CPT/HCPCS: 71046; 80053; 82550; 82552; 83690; 83735; 84484; 85025; 85610; 85730; 93005; 93458; 96361; 96374; 96375; 96376; 99152; 99285; C1769; C1893; G0378; J1644; J2250; J2270; J2405; J2930; J3010; J7050; Q9967

== ENCOUNTER 2018-01-22 10:20 | Inpatient (IN) ==
--- NOTE | 2018-01-22 12:08 | ED ---
HPI General Chief Complaint: Neuro Symptoms/Deficit Stated Complaint: Numbness on left side Time Seen by Provider: 01/22/18 11:44 Source: patient Mode of arrival: ambulatory Limitations: no limitations History of Present Illness HPI Narrative: Patient presents complaining with intermittent left cheek numbness for the past year. It comes and goes but has been becoming more frequent and persistent. She had outpatient studies done yesterday which showed 90% stenosis of her right carotid artery. She states that her doctor's office suggested that she come to the emergency department. Onset (ago): year(s) (1) Location: left face History of same: Yes Severity: mild Quality: numb Relieving factors: none Exacerbating factors: none Context: other (Intermittent) Associated symptoms: denies other symptoms Related Data Home Medications Medication Instructions Recorded Confirmed Calcium 500 With D 12/30/17 aspirin [Aspir-Low] 81 mg PO DAILY 12/30/17 12/30/17 atorvastatin 80 mg PO HS 12/30/17 12/30/17 hydrochlorothiazide 25 mg PO DAILY 12/30/17 12/30/17 losartan 50 mg PO BID 12/30/17 12/30/17 [id number]-[id number] fum 12/30/17 [Multi Vitamin] Previous Rx's Medication Instructions Recorded cyclobenzaprine 5 mg PO Q8H #14 tab 12/30/17 Allergies Allergy/AdvReac Type Severity Reaction Status Date / Time amlodipine Allergy Severe legs Unverified 12/30/17 11:03 swelling Review of Systems Except as stated in HPI: all other systems reviewed are negative [facility] Medical History Medical History CAD (coronary artery disease) (Acute) Carotid artery stenosis (Acute) High cholesterol (Acute) Hypertension (Acute) Mitral valve prolapse (Acute) Myocardial infarct, old (Acute) Surgical History Surgical History H/O dilation and curettage (Acute) History of partial hysterectomy (Acute) Hx of cardiac cath (Acute) Social History Social History Substance History: No History of Abuse Second Hand Smoke Exposure: No Smoking Status: Former smoker How Often Do You Have a Drink Containing Alcohol: 4 or more times a week Substance Abuse Detail Marijuana: Substance Use Status: Active Immunization History Tetanus Immunization: >5 Years Hx Influenza Vaccine This Season: Yes Exam Const General: cooperative, healthy appearing, comfortable, no acute distress, well developed and well groomed Nutritional Appearance: average body habitus Orientation: alert, awake and oriented x3 HENMT Head: normal to inspection, normocephalic and atraumatic Eyes General: appearance normal, both eyes and all related structures Alignment and Position: alignment normal Conjunctivae: conjunctivae normal Sclera: sclerae normal Pupils: PERRL EOM: EOM intact bilaterally Neck Neck: normal visual inspection and full ROM Chest Chest: normal inspection of the chest Resp Effort & Inspection: normal respiratory effort and able to speak in complete sentences Cardio Rate: regular rate Rhythm: regular rhythm GI Inspection: normal to inspection Back/Spine/Pelvis Cervical Spine: cervical ROM normal Thoracic/Lumbar Spine: thoraco-lumbar ROM normal Skin General: no rashes or lesions noted and turgor normal Neuro General: alert, awake, oriented x3, moves all extremities and CN's II-XI intact bilaterally Cranial Nerves: CN's II-XI intact bilaterally, no nystagmus, facial strength normal, tongue midline, able to rotate head bilaterally and able to elevate shoulders bilaterally Cognition: normal cognition Speech: speech normal Motor: strength 5/5 throughout Coordination: mpmixz-nq-anth test normal Extrem General: normal to inspection and full ROM Psych Appearance: grossly normal Mental Status: mental status grossly normal Speech and Movement: speech and movement normal Mood: congruent mood Affect: normal affect Attitude: cooperative Thought Process: normal Thought Content: normal Judgment: judgment good Course Reevaluation(s) Reevaluation #1: Dr. Barfield will see the patient. He will admit to his service. Time: 12:06 Initial Documented Vital Signs Temperature 98.3 F 01/22/18 10:23 Pulse Rate 71 01/22/18 10:23 Respiratory Rate 16 01/22/18 10:23 Blood Pressure 204/83 H 01/22/18 10:23 Pulse Oximetry 97 01/22/18 10:23 Last Documented Vital Signs Temperature 98.3 F 01/22/18 10:23 Pulse Rate 71 01/22/18 10:23 Respiratory Rate 16 01/22/18 10:23 Blood Pressure 204/83 H 01/22/18 10:23 Pulse Oximetry 97 01/22/18 10:23 Medical Decision Making MDM Narrative Medical decision making narrative: This patient presents complaining with left face numbness. She has been having intermittent episodes for the last year. She has seen her primary care provider who ordered outpatient studies. The studies were done yesterday and showed 90 percent stenosis of the right carotid artery. Her primary care provider suggested that she come to the emergency department for further evaluation and treatment. I have consulted vascular surgery who will see the patient. Differential Diagnosis Differential Diagnosis: Differential diagnosis includes but is not limited to TIA, CVA, brain tumor, migraine, anxiety Discharge Plan Discharge Disposition Patient Disposition: 30 Still Patient Discharge Details Diagnosis: Left facial numbness, Carotid artery stenosis Physicians Team ED Provider: Lindsay Corcoran Other Providers: Christie Booth Rxs /Orders / Referrals /Forms Prescriptions: No Action losartan 50 mg Tablet 50 mg PO BID RF: 0 atorvastatin 80 mg Tablet 80 mg PO HS RF: 0 aspirin [Aspir-Low] 81 mg Tablet,Delayed Release (Dr/Ec) 81 mg PO DAILY RF: 0 hydrochlorothiazide 25 mg Tablet 25 mg PO DAILY RF: 0 [id number]-kbhbgkzf-vamjxrr fum [Multi Vitamin] 9 mg iron/15 mL Liquid RF: 0 Calcium 500 With D RF: 0 cyclobenzaprine 5 mg tablet 5 mg PO Q8H Qty: 14 RF: 0 Discharge Interventions Interventions: Vital Signs Last Done: 01/22/18 10:23 Status ED Status: With Doctor
[2018-01-22] MEDS ORDERED: Bisacodyl 10 MG Supp RECTAL PRN (12:45)
[2018-01-22] MEDS ORDERED: Post-op Orders (for Pharmacy) OTHER ONE (12:45)
[2018-01-22] MEDS ORDERED: Naloxone Inj 0.4 MG/ML Vial IV.PUSH PRN (12:45)
--- NOTE | 2018-01-22 13:58 | MH ---
cc: Christie Booth MD DATE OF ADMISSION: 01/22/2018 ADMITTING PHYSICIAN: Dr. Booth, surgery. ADMITTING DIAGNOSES: Transient ischemic attack 90% to 95% stenosis of the right internal carotid artery. HISTORY OF PRESENT ILLNESS: This pleasant 62-year-old female started complaining beginning of this month about some pain in her neck, numbness in the neck and was initially seen in the ER, discharged with some medication and then underwent workup for more numbness in the face. At that point, CTA of carotids was performed. The patient was found to have 90% to 95% stenosis of the right internal carotid artery, which is obviously nearly occluded. Question arises about further care. The patient is now being admitted for therapy. PAST MEDICAL HISTORY: Coronary artery disease and some sort of a non-STEMI about 15 years ago, hypertension, hypercholesteremia. PAST SURGICAL HISTORY: Hysterectomy, curettage, and cardiac catheterization at that time of her [place]. SOCIAL HISTORY: The patient used to smoke. Does not drink either. PHYSICAL EXAMINATION: GENERAL: A pleasant 62-year-old lady in no acute distress. HEENT: Normocephalic. No trauma to the head. Pupils equal, reactive. Extraocular muscles intact. NECK: Supple. Bilateral carotid pulses and to be honest, I do not hear a bruit. CHEST: Bilateral breath sounds. HEART: Regular rate and rhythm. ABDOMEN: Soft. Active bowel sounds. No rebound, no guarding, no masses. EXTREMITIES: Within normal limits. Good proximal and distal pulses. No vascular deficit. NEUROLOGIC: The patient's Judy coma scale is 15. Motoric strength bilateral equal in upper and lower extremities. Deep tendon reflexes are normal. The patient has no lateralization. Examination of the cranial nerves does not reveal any abnormality. The patient does not have a facial droop, numbness, or any other symptoms. IMPRESSION AND RECOMMENDATIONS: The patient with sort of vague and elusive symptoms which may or may not be a transient ischemic attack in the past and today, but now with a 90% to 95% internal carotid artery stenosis. Considering this high-grade stenosis, which is near total occlusion, the patient will be admitted now, worked up and neurology and cardiology are consulted and all things equal, barring any surprises, patient will be scheduled for carotid endarterectomy, next 48 hours. Christie Booth MD SJ/lh/ll , 01:05 PM , 01:13 PM
--- NOTE | 2018-01-22 14:52 | CT ---
EXAM DATE: 01/22/2018 2:49 PM EDT AGE/SEX: 62 years / Female INDICATIONS: Dizziness. CLINICAL DATA: This is the patient's initial encounter. Patient reports that signs and symptoms have been present for 1 day and indicates a pain score of 0/10. MEDICAL/SURGICAL HISTORY: Cardiovascular disease. Hypertension. Carotid artery stenosis, coronary artery disease. Hysterectomy. RADIATION DOSE: 56.35 CTDI (mGy) COMPARISON: POI, CTA HEAD, 01/21/2018. C, CT BRAIN W/O CONTRAST, 03/17/2015. . TECHNIQUE: CT of the head without contrast. Using automated exposure control and adjustment of the mA and/or kV according to patient size, radiation dose was kept as low as reasonably achievable to ob tain optimal diagnostic quality images. DICOM format image data is available electronically for revi ew and comparison. FINDINGS: Cerebrum: The ventricles are normal for age. No evidence of midline shift, mass lesion, hemorrhage or acute infarction. No extraaxial fluid collections are seen. Posterior Fossa: The cerebellum and brainstem are intact. The 4th ventricle is midline. The cerebe llopontine angle is unremarkable. Extracranial: The visualized portion of the orbits is intact. Skull: The calvaria is intact. No evidence of skull fracture. CONCLUSION: 1. Negative CT Head non contrast. . Electronically signed by: Alonzo Willingham MD 01/22/2018 2:51 PM EDT
--- NOTE | 2018-01-22 15:55 | P.CONIM ---
History of Present Illness Consult date: 01/22/18 Requesting Physician: Christie Booth Reason for Consult: Medical Management Primary Care Provider: Stanford Yadav MD History of Present Illness: Mrs. Malik is a pleasant 62 y/o female with HTN, Hyperlipidemia, and hx of CAD who presented to the ED with reports of intermittent left facial numbness. She reports that symptoms began around 6 months ago with a numbness and tingling sensation in her left cheek. She also experienced a burning pain in her left jaw from her ear and across her lower left jaw. This occurred some what sporadically over the last six months but in the last month it has occurred more frequently. She had also noted some intermittent headaches of varying quality, location and intensity but these were not necessarily associated with the facial or jaw numbness. Pt was referred to see Neurology as an outpt, Dr. Blanton and she reports that she was sent for CTA head and MRI brain. The MRI was negative for acute process. The CTA Head revealed high grade stenosis of the right internal carotid estimated to be in the range of 90%. Pt was recommended to go to the ED for further treatment and evaluation by vascular surgery. Pt was admitted by Dr. Booth in the ED and is tentatively planned for right CEA tomorrow pending evaluation by Neurology and Cardiology. [facility] Hospitalist team was consulted to help with medical management. Pt denies any facial droop, speech difficulty, weakness in her upper or lower extremities , chest pain, SOB, palpitations, or dizziness. 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 Review of Systems All other systems reviewed negative except as stated in HPI Constitutional: Denies chills, Denies fever(s) Eyes: Denies double vision, Denies loss of vision Ears, Nose, Mouth, and Throat: Reports headache(s), Denies difficulty swallowing , Denies dizziness, Denies ear discharge, Denies ear pain, Denies lip swelling, Denies nasal congestion Cardiovascular: Denies chest pain, Denies shortness of breath Respiratory: Denies cough, Denies shortness of breath Gastrointestinal: Denies abdominal pain, Denies constipation, Denies loose stools, Denies nausea, Denies vomiting Genitourinary: Denies urinary incontinence, Denies urinary urgency Musculoskeletal: Denies back pain, Denies joint pain, Denies neck pain Skin/Breast: Denies rash Neurologic: Reports headache(s), Reports tingling/numbness/burning sensations, Denies dizziness, Denies lack of coordination, Denies localized weakness Psychiatric: Denies anxiety, Denies depression [facility] - History History Provided By: Patient - Medical History Medical History: Medical History (Last Reviewed 01/27/18 @ 18:23 by Carol Hartmann MD) Mitral valve prolapse (Acute) Carotid artery stenosis (Acute) CAD (coronary artery disease) (Acute) Hypertension (Acute) High cholesterol (Acute) Myocardial infarct, old (Acute) - Surgical History Surgical History: Surgical History (Last Reviewed 01/27/18 @ 18:23 by Carol Hartmann MD) H/O dilation and curettage (Acute) History of partial hysterectomy (Acute) Hx of cardiac cath (Acute) S/P carotid endarterectomy - Tobacco History Second Hand Smoke Exposure: No Tobacco Use In Past 30 Days: No Smoking Status: Former smoker - Alcohol History How Often Do You Have a Drink Containing Alcohol: 4 or more times a week - Substance Use History Substance History: No History of Abuse - Substance Use Type Marijuana Status: Active - Immunization History Tetanus Immunization: >5 Years Hx Influenza Vaccine This Season: Yes Medications and Allergies Allergies Allergy/AdvReac Type Severity Reaction Status Date / Time amlodipine AdvReac Intermediate legs Verified 01/27/18 09:11 swelling Home Medications Medication Instructions Recorded Confirmed Type atorvastatin 80 mg PO HS 12/30/17 01/27/18 History hydrochlorothiazide 25 mg PO DAILY 12/30/17 01/27/18 History losartan 50 mg PO BID 12/30/17 01/27/18 History calcium carbonate-vitamin D3 1 tab PO DAILY 01/22/18 01/27/18 History [Calcium with Vitamin D] lorazepam 0.5 mg PO HS PRN 01/22/18 01/27/18 History [id number]-[id number]-[id number]-vit K 1 tab PO DAILY 01/22/18 01/27/18 History [Adults Multivitamin] Active Medications: Active Medications Al Hydroxide/Mg Hydroxide (Milk Of Magnesia Liq) 30 ml PO Q12H PRN PRN Reason: Mild Constipation Bisacodyl (Dulcolax Supp) 10 mg RECTAL DAILY PRN PRN Reason: SEVERE CONSITIPATION Clopidogrel Bisulfate (Plavix) 75 mg PO DAILY [facility] Sodium Chloride (Ns Inj) 1,000 mls @ 80 mls/hr IV.CONT .[id number] SANTINO Lactulose (Lactulose Liq) 30 ml PO DAILY PRN PRN Reason: SEVERE CONSITIPATION Losartan Potassium (Cozaar) 50 mg PO BID SANTINO Naloxone HCl (Narcan Inj) 0.4 mg IV.PUSH UNSCH PRN PRN Reason: SEE LABEL COMMENTS Ondansetron HCl (Zofran Inj) 4 mg IV.PUSH Q6H PRN PRN Reason: NAUSEA OR VOMITING Pantoprazole Sodium (Protonix) 40 mg PO DAILY [facility] Senna/Docusate Sodium (Carrie-Colace) 1 tab PO BID [facility] Sennosides (Senokot) 17.2 mg PO Q12H PRN PRN Reason: Moderate Constipation Exam Vital signs: Vital Signs 01/22/18 10:23 01/22/18 11:00 01/22/18 12:00 Temperature 98.3 F Pulse Rate 71 56 L 56 L Respiratory Rate 16 18 16 Blood Pressure 204/83 H 151/66 H 136/74 Pulse Oximetry 97 01/22/18 13:00 01/22/18 14:00 Temperature Pulse Rate 52 L 54 L Respiratory Rate 18 18 Blood Pressure 141/67 H 177/83 H Pulse Oximetry 96 Intake & Output 01/21/18 01/22/18 01/22/18 18:59 06:59 18:59 Weight 70.307 kg Narrative: GENERAL: NAD, AAOx3 SKIN: Warm and dry. HEENT: Atraumatic. Normocephalic. Pupils equal and round. No scleral icterus. No injection or drainage. No nasal bleeding or discharge. Mucous membranes pink and moist. NECK: Trachea midline. No JVD. CARDIO: Regular rate and rhythm. RESP: No accessory muscle use. Clear to auscultation. Breath sounds equal bilaterally. ABD: +BS, soft, non-tender, nondistended. Hepatic and splenic margins not palpable. EXT: Extremities without clubbing, cyanosis, or edema. No obvious deformities. NEURO: Awake and alert. No obvious cranial nerve deficits. Motor grossly within normal limits. Five out of 5 muscle strength in the arms and legs. Normal speech. PSYCHIATRIC: Appropriate mood and affect; insight and judgment normal. Results - Labs CBC & Chem 7: 01/24/18 06:15 01/23/18 08:21 - Imaging Impressions Head CT 01/22/18 00:00 CONCLUSION: 1. Negative CT Head non contrast. . Assessment and Plan - Assessment (1) Carotid artery stenosis Code(s): I65.29 - Occlusion and stenosis of unspecified carotid artery Status : Resolved Plan: Carotid artery stenosis Left facial numbness - Pt is a 62 y/o female with HTN, Hyperlipidemia, and hx of CAD who presented to the ED with reports of intermittent left facial numbness - Pt had an outpt MRI Brain (01/21/18) was negative for acute process. Outpt CTA Head (01/21/18) revealed high grade stenosis of the right internal carotid estimated to be in the range of 90%. - Pt was recommended to go to the ED for further treatment and evaluation by vascular surgery. - Pt was admitted by Dr. Booth in the ED and is tentatively planned for right CEA tomorrow pending evaluation by Neurology and Cardiology. - Home BP meds were resumed - Pt was started on Plavix 75mg po daily - Labs ordered for AM - HTN - Losartan 50mg po BID resumed - PRN BP control - Monitor Hyperlipidemia - Cholesterol panel in the ED noted LDL 134 - Cont. Atorvastatin 80mg HS (2) Left facial numbness Code(s): R20.0 - Anesthesia of skin Status: Acute (3) HTN (hypertension) Code(s): I10 - Essential (primary) hypertension Status: Chronic (4) Hyperlipidemia Code(s): E78.5 - Hyperlipidemia, unspecified Status: Acute (5) CAD (coronary artery disease) Code(s): I25.10 - Atherosclerotic heart disease of [place] coronary artery without angina pectoris Status: Acute - Attending Attestation The exam, history, and the medical decision-making described in the above note were completed with the assistance of the mid-level provider. I reviewed and agree with the findings presented. I attest that I had a [id number] encounter with the patient on the same day, and personally performed and documented my assessment and findings in the medical record. Patient examined. Assessment and plan formulated with Laney Alexander PA-C. I agree with the above. (1) Carotid artery stenosis Qualifiers: Laterality: right Qualified Code(s): I65.21 - Occlusion and stenosis of right carotid artery (3) HTN (hypertension) Qualifiers: Hypertension type: essential hypertension Qualified Code(s): I10 - Essential (primary) hypertension (4) Hyperlipidemia Qualifiers: Hyperlipidemia type: unspecified Qualified Code(s): E78.5 - Hyperlipidemia, unspecified (5) CAD (coronary artery disease) Qualifiers: Coronary Disease-Associated Artery/Lesion type: unspecified vessel or lesion type
[2018-01-22 16:02] LABS: Chol/HDL Ratio 3.93 Ratio; HDL Cholesterol 51.8 mg/dL (40.0-60.0)
[2018-01-22] MEDS: Sod Chloride 0.9% Inj 1,000 ML IV.CONT SCH (17:05)
--- NOTE | 2018-01-22 18:19 | MB ---
cc: Maddie Connell MD DATE: 01/22/2018 REASON FOR CONSULTATION: TIA. HISTORY OF PRESENT ILLNESS: This is a pleasant 62-year-old woman who had seen, I believe, recently, who had ordered imaging of the brain and carotids. She was found to have 90% stenosis at [place] of the right internal carotid. She was to be set up for outpatient carotid endarterectomy; however, she has been having intermittent left cheek tingling and numbness and what looks like a facial droop. Length of the droop is really unknown to the patient. She denies any significant weakness in the arm or leg, on the left side. She has been having episodes of dizziness as well. No dysarthria. PAST MEDICAL HISTORY: She has a significant past medical history: Hypertension, coronary artery disease, hyperlipidemia, mitral valve prolapse, NV in the past. PAST SURGICAL HISTORY: D and C, partial hysterectomy and a cardiac catheterization. SOCIAL HISTORY: She works for [email or web address]. 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 She quit smoking over 9 years ago. No significant alcohol history; 4 or more drinks week per chart. SUBSTANCE ABUSE HISTORY: Per chart, states marijuana. ALLERGIES TO MEDICATIONS: AMLODIPINE. HOME MEDICATIONS: She takes clopidogrel, losartan, hydrochlorothiazide and a baby aspirin. Plavix, it seems, was added today because she denied taking that at home, only baby aspirin. PHYSICAL EXAMINATION: VITAL SIGNS: Temperature is 98.3, pulse 71, respiratory rate 16, blood pressure initially at 10:23 this morning was 204/83, saturating at 97% on room air. Recently in her room, her blood pressure was in the 140 systolic range. NECK: Supple. No appreciable bruits. HEART: Regular. NEUROLOGIC: She is awake and alert. She is oriented. She is fluent. Her pupils are reactive. Visual pugh are normal. She does exhibit mild left ptosis and attenuated left nasolabial fold/droop left side. Tongue midline. Motor hobson, no significant drift or leg lag noted. 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 Cerebellar normal. No leg lag. DTRs are 1-2+. Sensory otherwise is intact. Left toe is neutral. Right toe is downgoing. Gait is withheld at this time. LABORATORY DATA: Pending CBC. LFTs and metabolic panel pending. ASSESSMENT AND PLAN: A 61-year-old woman with significant right carotid stenosis concerning for possible ongoing TIA-like events versus small infarct. Recommend getting an MRI of the brain and eyak of [place]. Even though she has had that done 2-3 days prior, I will make sure that she did not have any acute infarctions, given that she had some increased symptoms the day of admission. Echocardiogram is on order, labs are on order. She is on antiplatelet therapy. Surgery is scheduled for tomorrow, if cleared. Continue with permissible hypertension and maintain her at bedrest with IV fluids, normal saline 70 mL an hour. MD NYDIA Mathis/jabier/chelly , 02:03 PM , 02:12 PM
--- NOTE | 2018-01-22 18:39 | ECG ---
Date Performed: 01/22/2018 Time Performed: 18:25:53 PTAGE: 62 years EKG: SINUS BRADYCARDIA BORDERLINE ECG No significant change from prior electrocardiogram. PREVIOUS TRACING : 07/11/2017 03.18 DOCTOR: Jose Angel Espinal Interpretating Date/Time 01/22/2018 18:39:09
--- NOTE | 2018-01-22 19:56 | MR ---
EXAM DATE: 01/22/2018 7:06 PM EDT AGE/SEX: 62 years / Female INDICATIONS: CVA. CLINICAL DATA: This is the patient's subsequent encounter. Patient reports that signs and symptoms h ave been present for 1 day and indicates a pain score of 0/10. MEDICAL/SURGICAL HISTORY: Hypertension. Hysterectomy. COMPARISON: POI, MR BRAIN W AND W/O CONTRAST, 01/21/2018. . TECHNIQUE: Multiplanar, multisequence examination of the brain was performed without contrast. FINDINGS: Cerebrum: The ventricles are normal for age. No evidence of midline shift, mass lesion, hemorrhage or acute infarction. No extraaxial fluid collections are seen. The pituitary gland and suprasellar cistern are normal in configuration. White Matter: There are a few scattered focal areas of signal body within the cerebral white matter being most prominent at the left posterior frontal region. These were present previously. Posterior Fossa: The cerebellum and brainstem are intact. The 4th ventricle is midline. The cerebel lopontine angle is unremarkable. The cerebellar tonsils are normal in position. Diffusion Imaging: No focal areas of restricted diffusion are seen. No evidence of acute infarction . Extracranial: The visualized portions of the orbits and paranasal sinuses are unremarkable. CONCLUSION: 1. No acute abnormality seen. 2. There are a few scattered small focal areas of increased signal within the cerebral white matter likely representing small focal areas of demyelination. These are unchanged. Electronically signed by: Andres Luz MD 01/22/2018 7:54 PM EDT
[2018-01-22] MEDS: Senna/Docusate Sodium 8.6/50 MG Tablet PO SCH (21:56)
[2018-01-22] MEDS ORDERED: LORazepam 0.5 MG Tablet PO PRN (22:39)
--- NOTE | 2018-01-22 22:57 | MB ---
cc: Sincere Cifuentes MD DATE: 01/22/2018 INDICATION: Preoperative clearance. HISTORY OF PRESENT ILLNESS: This is a very nice 62-year-old female who underwent cardiac catheterization back in July, and was found to have some moderate small branch vessel disease, which we managed medically. She was having some sort of atypical symptoms with numbness and paresthesias, and computed tomography and angiography of the carotid arteries were performed, which showed 90% to 95% stenosis in the right internal carotid artery. She was evaluated by Dr. Booth, who recommended a carotid endarterectomy for tomorrow. We are consulted for preoperative clearance. PAST MEDICAL HISTORY: History of coronary artery disease, hypertension, hyperlipidemia. SOCIAL HISTORY: Denies any alcohol, tobacco or drug use. FAMILY HISTORY: Has a family history of early coronary disease and cardiac . REVIEW OF SYSTEMS: A 12-point review of systems was performed, negative unless otherwise noted in history of present illness. PHYSICAL EXAMINATION: GENERAL: Alert and oriented x3, in no acute distress. VITAL SIGNS: Pulse 53, blood pressure 151/66. HEENT: Shows pupils reactive to accommodation and light. Extraocular movements intact. NECK: No elevation of jugular venous distention. No thyromegaly. No lymphadenopathy. Right carotid bruit. LUNGS: Clear to auscultation bilaterally. CARDIOVASCULAR: Regular rate and rhythm without murmurs, rubs or gallops. ABDOMEN: Nontender, nondistended. Good bowel sounds. No hepatosplenomegaly. EXTREMITIES: Show no clubbing, cyanosis or edema. Good peripheral pulses. NEUROLOGIC: Cranial nerves intact. Motor, sensory grossly intact. LABORATORY DATA: Triglycerides 89, LDL 134. ASSESSMENT: 1. Severe carotid stenosis. 2. History of moderate small vessel coronary artery disease, hypertension, hyperlipidemia. PLAN: Surgery is intermediate risk surgery with carotid endarterectomy. The patient is intermediate risk without high risk clinical features or symptoms. The patient generates more than 4 metabolic equivalents. Based on Michele criteria for cardiovascular assessment and preoperative clearance, the patient will be acceptable risk to proceed forth without any need for preoperative testing. We will check a 12-lead electrocardiogram today. No other further workup is necessary. Please call with further questions. Sincere Cifuentes MD PARAS/rh/ll , 04:13 PM , 04:24 PM
[2018-01-23] MEDS ORDERED: Heparin - SQ 10,000 UNITS/ML Vial ONE (07:31)
[2018-01-23] MEDS ORDERED: Heparin 10,000 UNITS/10 ML Vial (for IV use) ONE (07:31)
[2018-01-23] MEDS ORDERED: Chlorhexidine Gluconate 2% 1 Pack (2 Cloths) TOPICAL SCH (07:45)
[2018-01-23] MEDS ORDERED: Metoprolol Tartrate 25 MG Tablet PO SCH (07:45)
[2018-01-23] MEDS ORDERED: Sodium Chlor 0.9% Inj 500 ML IV.SIG SCH (08:00)
[2018-01-23] MEDS: Senna/Docusate Sodium 8.6/50 MG Tablet PO SCH ×2 (08:51→20:10)
[2018-01-23 09:39] LABS: Baso % (Auto) 0.8 % (0.0-2.0); Eos # (Auto) 0.1 th/mm3 (0.0-0.4); Hematocrit 38.8 % (35.0-46.0); Hemoglobin 13.1 gm/dL (11.6-15.3); Lymph # (Auto) 1.5 th/mm3 (1.0-4.8); Lymph % (Auto) 34.3 % (9.0-44.0); Mean Corpuscular HGB Conc 33.6 % (32.0-36.0); Mean Corpuscular Hemoglobin 32.5 pg (27.0-34.0); Mean Corpuscular Volume 96.6 fL (80.0-100.0); Mean Platelet Volume 8.4 fL (7.0-11.0); Mono # (Auto) 0.4 th/mm3 (0.0-0.9); Mono % (Auto) 9.1 % (0.0-8.0); Neut # (Auto) 2.3 th/mm3 (1.8-7.7); Neut % (Auto) 52.8 % (16.0-70.0); Platelet Count 191 th/mm3 (150-450); Red Blood Count 4.02 mil/mm3 (4.00-5.30); Red Cell Distribution Width 13.8 % (11.6-17.2); White Blood Count 4.3 th/mm3 (4.0-11.0)
[2018-01-23] MEDS ORDERED: fentaNYL Citrate Inj 250 MCG/5 ML Ampul ONE (09:48)
--- NOTE | 2018-01-23 09:48 | P.PNIM ---
Subjective Interval history: nad. getting echo. Physical Exam Vital signs: Vital Signs 01/22/18 10:23 01/22/18 11:00 01/22/18 12:00 Temperature 98.3 F Pulse Rate 71 56 L 56 L Respiratory Rate 16 18 16 Blood Pressure 204/83 H 151/66 H 136/74 Pulse Oximetry 97 01/22/18 13:00 01/22/18 14:00 01/22/18 16:00 Temperature 97.3 F L Pulse Rate 52 L 54 L 63 Respiratory Rate 18 18 20 Blood Pressure 141/67 H 177/83 H 179/71 H Pulse Oximetry 96 93 L 01/22/18 20:00 01/23/18 00:00 01/23/18 04:00 Temperature 97.2 F L 97.3 F L 97.1 F L Pulse Rate 56 L 53 L 49 L Respiratory Rate 16 16 16 Blood Pressure 168/80 H 136/70 126/72 Pulse Oximetry 94 L 96 94 L Intake & Output 01/22/18 01/23/18 01/23/18 18:59 06:59 18:59 Intake Total 600 / 600 Output Total 800 / 800 Balance -200 / -200 Weight 72.938 kg 74.2 kg Intake: Oral 600 / 600 Output: Urine 800 / 800 Other: # Bowel Movements 0 Weight On Admission 72.938 kg heart reg lung cta abd s/nt ext no edema Results - Labs CBC & Chem 7: 01/23/18 08:21 01/23/18 08:21 Laboratory Results - last 24 hr 01/22/18 01/22/18 01/23/18 14:37 19:45 08:21 WBC 4.3 RBC 4.02 Hgb 13.1 Hct 38.8 MCV 96.6 MCH 32.5 MCHC 33.6 RDW 13.8 Plt Count 191 MPV 8.4 Neut % (Auto) 52.8 Lymph % (Auto) 34.3 [place] % (Auto) 9.1 H Eos % (Auto) 3.0 Baso % (Auto) 0.8 Neut # (Auto) 2.3 Lymph # (Auto) 1.5 [place] # (Auto) 0.4 Eos # (Auto) 0.1 Baso # (Auto) 0.0 WBC Differential . Differential Comment Auto diff final Triglycerides 89 Cholesterol 204 H LDL Cholesterol, Calc 134 H HDL Cholesterol 51.8 Cholesterol/HDL Ratio 3.93 Blood Type O Negative Antibody Screen Negative - Imaging Impressions Head CT 01/22/18 00:00 CONCLUSION: 1. Negative CT Head non contrast. . Head MRI 01/22/18 00:00 CONCLUSION: Assessment and Plan - Assessment (1) Carotid artery stenosis Code(s): I65.29 - Occlusion and stenosis of unspecified carotid artery Status : Acute Plan: Carotid artery stenosis Left facial numbness - Pt is a 62 y/o female with HTN, Hyperlipidemia, and hx of CAD who presented to the ED with reports of intermittent left facial numbness - Pt had an outpt MRI Brain (01/21/18) was negative for acute process. Outpt CTA Head (01/21/18) revealed high grade stenosis of the right internal carotid estimated to be in the range of 90%. - Pt was recommended to go to the ED for further treatment and evaluation by vascular surgery. - Pt was admitted by Dr. Booth in the ED and is planned for right CEA today - Home BP meds were resumed - Pt was started on Plavix 75mg po daily pt stable overnight. To OR today. - HTN - Losartan 50mg po BID resumed - PRN BP control - Monitor Hyperlipidemia - Cholesterol panel in the ED noted LDL 134 - Cont. Atorvastatin 80mg HS (2) Left facial numbness Code(s): R20.0 - Anesthesia of skin Status: Acute (3) HTN (hypertension) Code(s): I10 - Essential (primary) hypertension Status: Acute (4) Hyperlipidemia Code(s): E78.5 - Hyperlipidemia, unspecified Status: Acute (5) CAD (coronary artery disease) Code(s): I25.10 - Atherosclerotic heart disease of [place] coronary artery without angina pectoris Status: Acute (1) Carotid artery stenosis Qualifiers: Laterality: right Qualified Code(s): I65.21 - Occlusion and stenosis of right carotid artery
[2018-01-23 10:21] LABS: Alanine Aminotransferase 31 U/L (10-53); Albumin 3.5 g/dL (3.4-5.0); Anion Gap 8 meq/L (5-15); Aspartate Aminotransferase 16 U/L (15-37); Blood Urea Nitrogen 13 mg/dL (7-18); Calcium 8.6 mg/dL (8.5-10.1); Chloride 109 meq/L (98-107); Glomerular Filtration Rate Greater Than 89 mL/min (>89); Glucose,Random 92 mg/dL (74-106); Potassium 3.9 meq/L (3.5-5.1); Sodium 143 meq/L (136-145)
[2018-01-23 10:23] LABS: Alkaline Phosphatase 74 U/L (45-117); Total Protein 6.8 g/dL (6.4-8.2)
[2018-01-23] MEDS ORDERED: Protamine Sulfate Inj 50 MG/5 ML Vial ONE (10:40)
[2018-01-23] MEDS ORDERED: ceFAZolin 2 GM Premix Inj 2 GM/50 ML PIGGYBACK IV.SIG ONE (10:40)
[2018-01-23] MEDS ORDERED: Neostigmine Inj 5 MG/5 ML Syringe IV.PUSH ONE (11:27)
[2018-01-23] MEDS ORDERED: Glycopyrrolate Inj 1 MG/5 ML Syringe IV.PUSH ONE (11:27)
[2018-01-23] MEDS ORDERED: Lidocaine PF 1% Inj 5 ML Syringe INFILTRATN ONE (11:27)
[2018-01-23] MEDS ORDERED: Phenylephrine/NS 1000 MCG/10ML Syringe IV.PUSH ONE (11:27)
[2018-01-23] MEDS ORDERED: Labetalol HCl Inj 100 MG/20 ML Vial IV.CONT ONE (11:27)
[2018-01-23] MEDS ORDERED: Lidocaine PF 2% Inj 10 ML Ampul INFILTRATN ONE (12:30)
[2018-01-23] MEDS ORDERED: *Labetalol HCl Inj 100 MG/20 ML Vial PERIprocedural Use ONLY IV.PUSH ONE (13:03)
[2018-01-23] MEDS ORDERED: *morphine SULFATE 4 MG/ML PERIprocedure ONLY ONE ×3 (13:03→14:00)
[2018-01-23] MEDS: Sod Chloride 0.9% Inj 1,000 ML IV.CONT SCH ×2 (13:46→15:34)
[2018-01-23] MEDS: Morphine Inj 4 MG/ML Vial IV.PUSH PRN ×3 (15:42→20:10)
--- NOTE | 2018-01-23 17:27 | MP ---
cc: Christie Booth MD DATE OF OPERATION: 01/23/2018 DATE OF SURGERY: 01/23/2018 PREOPERATIVE DIAGNOSES: Critical 95% right internal carotid artery stenosis and transient ischemic attack. POSTOPERATIVE DIAGNOSES: Critical 95% right internal carotid artery stenosis and trans ischemic attack. OPERATIVE PROCEDURE: Right carotid endarterectomy with patch angioplasty. SURGEON: Christie Booth MD ANESTHESIA: General. ESTIMATED BLOOD LOSS: 100 mL. DESCRIPTION OF PROCEDURE: The patient was prepped and draped in the usual fashion. The right parasternocleidomastoid incision made, deepened down through the platysma to the level of the carotid sheath. Facial vein was ligated and divided and a Weitlaner retractors are placed, as well as [employer] upper arm retractor using Pina. The common carotid, internal and external carotid arteries were dissected with sharp dissection. The umbilical tapes were placed around each with a Rumel tourniquet loosely. The patient was given 7000 units of heparin. Palpation reveals very firm plaque in the proximal internal carotid artery. The hypoglossal nerve was carefully identified and preserved. Clamps are now applied, the bulldog to the internal carotid artery and angled [place] to the common carotid. The vessel is opened longitudinally using Calderon scissors and immediately the Deputy shunt was placed to reestablish the blood flow. The patient has a huge plaque that nearly completely occludes the internal carotid artery. This is probably preocclusive situation which would have resulted in total occlusion within the next week or so. This was a crumbly and hard plaque combination. With a Bliss dissector in the medial plane, the plaque was dissected and removed. The debris is cleaned out from the intima using a heparin flush and Weck-Cels and then both ends are examined. The proximal end is nicely cut but the distal end it peeled off fairly well, although intima is slightly loose. Two 7-0 Prolene mattress stitches placed here to tack this down. A bovine patch is now selected and sewn in with a running 5-0 Prolene and prior to completing the arteriotomy closure, the Deputy shunt is removed and arteriotomy completed. The clamps are removed in the usual order and fashion preventing distal embolization. Meticulous hemostasis was obtained. The flow is checked with Doppler and is very brisk. Incision is now closed using 0 Vicryl in layers and a 7 flat SARA drain is laid over the vessel. The skin was closed with 4-0 Monocryl and Benzoin and Steri-Strips applied. The patient was taken to the recovery room where she wakes up completely neurologically intact, awake and alert. MD LUIS ENRIQUE Sousa/DAISHA , 05:05 PM , 05:13 PM
--- NOTE | 2018-01-23 17:49 | ECHRPT ---
Indication: CVA CONCLUSIONS Normal left ventricular size and wall thickness. The left ventricular systolic function is normal wi th an estimated ejection fraction in the range of 60-65%. Left ventricular diastolic function parameters a re normal. Trivial pulmonary valve regurgitation. BP: / HR: Rhythm: MEASUREMENTS (Male / Female) Normal Values Technical Quality: 2D ECHO LV Diastolic Diameter PLAX 4.8 cm 4.2 - 5.9 / 3.9 - 5.3 cm LV Systolic Diameter PLAX 3.1 cm IVS Diastolic Thickness 1.1 cm 0.6 - 1.0 / 0.6 - 0.9 cm LVPW Diastolic Thickness 0.9 cm 0.6 - 1.0 / 0.6 - 0.9 cm LV Relative Wall Thickness 0.4 RV Internal Dim ED PLAX 2.0 cm M-MODE Aortic Root Diameter MM 2.6 cm LA Systolic Diameter MM 3.5 cm LA Ao Ratio MM 1.3 AV Cusp Separation MM 1.7 cm DOPPLER Mitral E Point Velocity 114.0 cm/s Mitral A Point Velocity 81.9 cm/s Mitral E to A Ratio 1.4 FINDINGS LEFT VENTRICLE Normal left ventricular size and wall thickness. The left ventricular systolic function is normal wi th an estimated ejection fraction in the range of 60-65%. Left ventricular diastolic function parameters a re normal. RIGHT VENTRICLE The right ventricular systoilc function is normal. LEFT ATRIUM The left atrial size is normal. RIGHT ATRIUM The right atrial size is normal. ATRIAL SEPTUM Normal atrial septal thickness without atrial level shunting by limited color doppler interrogation. AORTA The aortic root and proximal ascending aorta are not well visualized. MITRAL VALVE Structurally normal mitral valve. AORTIC VALVE Trileaflet aortic valve. No aortic valve stenosis or regurgitation. TRICUSPID VALVE Structurally normal tricuspid valve. No tricuspid valve stenosis or regurgitation. PULMONARY VALVE Trivial pulmonary valve regurgitation. VESSELS The inferior vena cava is normal in size. PERICARDIUM No pericardial effusion. Khadar Oneal MD, FACC, [facility] [place] (Electronically Signed) Final Date:23 January 2018 17:47
[2018-01-24] MEDS: Morphine Inj 4 MG/ML Vial IV.PUSH PRN ×5 (00:21→19:56)
[2018-01-24] MEDS: Sod Chloride 0.9% Inj 1,000 ML IV.CONT SCH ×2 (02:25→19:10)
[2018-01-24 06:29] LABS: Hematocrit 33.3 % (35.0-46.0); Hemoglobin 11.2 gm/dL (11.6-15.3); Mean Corpuscular HGB Conc 33.8 % (32.0-36.0); Mean Corpuscular Hemoglobin 32.7 pg (27.0-34.0); Mean Platelet Volume 8.2 fL (7.0-11.0); Platelet Count 181 th/mm3 (150-450); Red Blood Count 3.43 mil/mm3 (4.00-5.30); Red Cell Distribution Width 13.7 % (11.6-17.2); White Blood Count 8.2 th/mm3 (4.0-11.0)
--- NOTE | 2018-01-24 09:33 | P.PNIM ---
Subjective Interval history: pt complains of alot of pain at surgical site had sore throat but better with ice water no difficulty breathing. Physical Exam Vital signs: Vital Signs 01/23/18 12:58 01/23/18 13:15 01/23/18 13:30 Temperature 97.4 F L Pulse Rate 66 53 L 54 L Respiratory Rate 24 12 19 Blood Pressure 166/85 H 137/70 132/67 Pulse Oximetry 94 L 95 98 01/23/18 13:45 01/23/18 14:00 01/23/18 14:15 Temperature Pulse Rate 57 L 55 L 59 L Respiratory Rate 20 12 16 Blood Pressure 133/69 137/70 142/65 H Pulse Oximetry 99 97 98 01/23/18 14:30 01/23/18 16:00 01/23/18 20:00 Temperature 97.4 F L 97.7 F 97.7 F Pulse Rate 59 L 58 L 60 Respiratory Rate 16 17 15 Blood Pressure 146/67 H 98/43 L 150/64 H Pulse Oximetry 98 96 95 01/24/18 00:00 01/24/18 04:00 01/24/18 05:45 Temperature 97.8 F 98.7 F 98.7 F Pulse Rate 56 L 56 L Respiratory Rate 18 16 Blood Pressure 108/46 L 108/46 L Pulse Oximetry 97 95 Intake & Output 01/23/18 01/24/18 01/24/18 18:59 06:59 18:59 Intake Total 1890 / 1890 1250 / 1250 Output Total 160 / 160 1320 / 1320 Balance 1730 / 1730 -70 / -70 Weight 73 kg Intake: IV 1050 / 1050 1000 / 1000 NS Inj 1,000 ML @ 80 mls/hr IV. 0 / 0 1000 / 1000 CONT .[id number] SANTINO Rx#:[id number] LR 1000 mL Inj 1,000 ML @ 30 1000 / 1000 mls/hr IV.SIG .Q24H SANTINO Rx#: [id number] Ancef 2 GM Premix Inj 2 gm In 50 / 50 50 ml @ 0 mls/hr IV.SIG .STK- MED ONE Rx#:[id number] Oral 240 / 240 250 / 250 Anesthesia Amount 600 / 600 Output: Urine 1300 / 1300 Estimated Blood Loss 100 / 100 Wound Drainage 60 / 60 20 / 20 # 1 Right Neck NEHEMIAS Drain 60 / 60 20 / 20 Other: # Voids 0 # Bowel Movements 0 right neck bandage with nehemias drain no stridor. no respiratory distress lung cta abd s/nt ext no edema in chair Results - Labs CBC & Chem 7: 01/24/18 06:15 01/23/18 08:21 Laboratory Results - last 24 hr 01/23/18 01/23/18 01/24/18 08:21 08:21 06:15 WBC 4.3 8.2 D RBC 4.02 3.43 L Hgb 13.1 11.2 L Hct 38.8 33.3 L MCV 96.6 97.0 MCH 32.5 32.7 MCHC 33.6 33.8 RDW 13.8 13.7 Plt Count 191 181 MPV 8.4 8.2 Neut % (Auto) 52.8 Lymph % (Auto) 34.3 [place] % (Auto) 9.1 H Eos % (Auto) 3.0 Baso % (Auto) 0.8 Neut # (Auto) 2.3 Lymph # (Auto) 1.5 [place]ven # (Auto) 0.4 Eos # (Auto) 0.1 Baso # (Auto) 0.0 WBC Differential . Differential Comment Auto diff final Sodium 143 Potassium 3.9 Chloride 109 H Carbon Dioxide 26.0 Anion Gap 8 BUN 13 Creatinine 0.63 Estimated GFR Greater than 89 Random Glucose 92 Calcium 8.6 Total Bilirubin 0.5 Direct Bilirubin 0.1 Indirect Bilirubin 0.4 AST 16 ALT 31 Alkaline Phosphatase 74 Total Protein 6.8 Albumin 3.5 Assessment and Plan - Assessment (1) Carotid artery stenosis Code(s): I65.29 - Occlusion and stenosis of unspecified carotid artery Status : Acute Plan: Carotid artery stenosis Left facial numbness - Pt is a 62 y/o female with HTN, Hyperlipidemia, and hx of CAD who presented to the ED with reports of intermittent left facial numbness - Pt had an outpt MRI Brain (01/21/18) was negative for acute process. Outpt CTA Head (01/21/18) revealed high grade stenosis of the right internal carotid estimated to be in the range of 90%. - Pt was recommended to go to the ED for further treatment and evaluation by vascular surgery. - Pt was admitted by Dr. Booth in the ED and right cea performed on 01/23 - Home BP meds were resumed - Pt was started on Plavix 75mg po daily pt stable. pt/nursing will try to use more po pain meds and move away from the iv morphine. - HTN - Losartan 50mg po BID resumed - PRN BP control - Monitor Hyperlipidemia - Cholesterol panel in the ED noted LDL 134 - Cont. Atorvastatin 80mg HS (2) Left facial numbness Code(s): R20.0 - Anesthesia of skin Status: Acute (3) HTN (hypertension) Code(s): I10 - Essential (primary) hypertension Status: Acute (4) Hyperlipidemia Code(s): E78.5 - Hyperlipidemia, unspecified Status: Acute (5) CAD (coronary artery disease) Code(s): I25.10 - Atherosclerotic heart disease of [place] coronary artery without angina pectoris Status: Acute (1) Carotid artery stenosis Qualifiers: Laterality: right Qualified Code(s): I65.21 - Occlusion and stenosis of right carotid artery
[2018-01-24] MEDS: Senna/Docusate Sodium 8.6/50 MG Tablet PO SCH ×2 (11:27→20:36)
--- NOTE | 2018-01-24 13:52 | P.PNVS ---
Subjective Subjective/Hospital Course: 62-year-old female with tight 95% right internal carotid artery stenosis and TIAs Patient underwent yesterday successful right carotid endarterectomy patch angioplasty Fully neurologically intact Incision is clean and dry DC SARA/DC dressing Transfer patient to floor and from my point she can be discharged any time Follow-up with me in about 2-3 weeks in the office Objective Vital Signs / I&O: Vital Signs 01/23/18 14:00 01/23/18 14:15 01/23/18 14:30 Temperature 97.4 F L Pulse Rate 55 L 59 L 59 L Respiratory Rate 12 16 16 Blood Pressure 137/70 142/65 H 146/67 H Pulse Oximetry 97 98 98 01/23/18 16:00 01/23/18 20:00 01/24/18 00:00 Temperature 97.7 F 97.7 F 97.8 F Pulse Rate 58 L 60 56 L Respiratory Rate 17 15 18 Blood Pressure 98/43 L 150/64 H 108/46 L Pulse Oximetry 96 95 97 01/24/18 04:00 01/24/18 05:45 01/24/18 08:00 Temperature 98.7 F 98.7 F 97.6 F Pulse Rate 56 L 65 Respiratory Rate 16 25 H Blood Pressure 108/46 L 149/69 H Pulse Oximetry 95 95 01/24/18 10:30 01/24/18 12:00 Temperature 98.2 F Pulse Rate 61 Respiratory Rate 25 H 26 H Blood Pressure 141/66 H Pulse Oximetry 96 Intake & Output 01/23/18 01/24/18 01/24/18 18:59 06:59 18:59 Intake Total 1890 / 1890 1250 / 1250 Output Total 160 / 160 1320 / 1320 Balance 1730 / 1730 -70 / -70 Weight 73 kg Intake: IV 1050 / 1050 1000 / 1000 NS Inj 1,000 ML @ 80 mls/hr IV. 0 / 0 1000 / 1000 CONT .[id number] SANTINO Rx#:[id number] LR 1000 mL Inj 1,000 ML @ 30 1000 / 1000 mls/hr IV.SIG .Q24H SANTINO Rx#: [id number] Ancef 2 GM Premix Inj 2 gm In 50 / 50 50 ml @ 0 mls/hr IV.SIG .STK- MED ONE Rx#:[id number] Oral 240 / 240 250 / 250 Anesthesia Amount 600 / 600 Output: Urine 1300 / 1300 Estimated Blood Loss 100 / 100 Wound Drainage 60 / 60 20 / 20 # 1 Right Neck SARA Drain 60 / 60 / Other: # Voids 0 # Bowel Movements 0 Laboratory Results - last 24 hr 01/24/18 06:15 WBC 8.2 D RBC 3.43 L Hgb 11.2 L Hct 33.3 L MCV 97.0 MCH 32.7 MCHC 33.8 RDW 13.7 Plt Count 181 MPV 8.[address] 01/22/18 00:00 CONCLUSION: 1. Negative CT Head non contrast. . Head MRI 01/22/18 00:00 CONCLUSION: 1. No acute abnormality seen. 2. There are a few scattered small focal areas of increased signal within the cerebral white matter likely representing small focal areas of demyelination. These are unchanged.
[2018-01-24] MEDS: oxyCODONE/Acetaminophen 10/325 Tablet PO PRN (15:30)
[2018-01-25] MEDS: Morphine Inj 4 MG/ML Vial IV.PUSH PRN (03:31)
[2018-01-25] MEDS: oxyCODONE/Acetaminophen 10/325 Tablet PO PRN ×2 (08:26→11:41)
[2018-01-25] MEDS: Senna/Docusate Sodium 8.6/50 MG Tablet PO SCH (08:26)
--- NOTE | 2018-01-25 08:30 | P.PNIM ---
Subjective Interval history: pain better controlled swallowing and breathing ok incision site looks good no bleeding and swelling better. Physical Exam Vital signs: Vital Signs 01/24/18 10:30 01/24/18 12:00 01/24/18 16:00 Temperature 98.2 F 97.6 F Pulse Rate 61 59 L Respiratory Rate 25 H 26 H 22 Blood Pressure 141/66 H 161/75 H Pulse Oximetry 96 95 01/24/18 20:00 01/24/18 21:40 01/25/18 00:00 Temperature 98.3 F 97.9 F Pulse Rate 64 60 Respiratory Rate 20 14 Blood Pressure 191/88 H 156/73 H 154/77 H Pulse Oximetry 93 L 93 L 01/25/18 04:00 Temperature 97.8 F Pulse Rate 56 L Respiratory Rate 16 Blood Pressure 127/69 Pulse Oximetry 94 L Intake & Output 01/24/18 01/25/18 01/25/18 18:59 06:59 18:59 Intake Total 960 / 960 1300 / 1300 Output Total 1200 / 1200 1900 / 1900 Balance -240 / -240 -600 / -600 Weight 73.6 kg Intake: IV 1000 / 1000 NS Inj 1,000 ML @ 80 mls/hr IV. 1000 / 1000 CONT .[id number] SANTINO Rx#:[id number] Oral 960 / 960 300 / 300 Output: Urine 1200 / 1200 1900 / 1900 Other: # Voids 3 heart reg lung cta abd s/nt ext no edema right neck incision c/d/i. no drainage. Results - Labs CBC & Chem 7: 01/24/18 06:15 01/23/18 08:21 - Imaging Impressions Head MRI 01/22/18 00:00 CONCLUSION: 1. No acute abnormality seen. 2. There are a few scattered small focal areas of increased signal within the cerebral white matter likely representing small focal areas of demyelination. These are unchanged. Assessment and Plan - Assessment (1) Carotid artery stenosis Code(s): I65.29 - Occlusion and stenosis of unspecified carotid artery Status : Acute Plan: Carotid artery stenosis Left facial numbness - Pt is a 62 y/o female with HTN, Hyperlipidemia, and hx of CAD who presented to the ED with reports of intermittent left facial numbness - Pt had an outpt MRI Brain (01/21/18) was negative for acute process. Outpt CTA Head (01/21/18) revealed high grade stenosis of the right internal carotid estimated to be in the range of 90%. - Pt was recommended to go to the ED for further treatment and evaluation by vascular surgery. - Pt was admitted by Dr. Booth in the ED and right cea performed on 01/23 - Home BP meds were resumed - Pt was started on Plavix 75mg po daily pt stable. discussed with Dr Tawanna hair asa and give plavix for now. will have pt f/u 2 weeks. pain script for percocet given. HTN - Losartan 50mg po BID resumed - PRN BP control - Monitor Hyperlipidemia - Cholesterol panel in the ED noted LDL 134 - Cont. Atorvastatin 80mg HS (2) Left facial numbness Code(s): R20.0 - Anesthesia of skin Status: Acute (3) HTN (hypertension) Code(s): I10 - Essential (primary) hypertension Status: Acute (4) Hyperlipidemia Code(s): E78.5 - Hyperlipidemia, unspecified Status: Acute (5) CAD (coronary artery disease) Code(s): I25.10 - Atherosclerotic heart disease of [place] coronary artery without angina pectoris Status: Acute (1) Carotid artery stenosis Qualifiers: Laterality: right Qualified Code(s): I65.21 - Occlusion and stenosis of right carotid artery
--- NOTE | 2018-02-25 12:35 | P.DS ---
Date of admission: 01/22/18 13:02 Primary care physician: Stanford Yadav MD Anticipated date of discharge: 01/25/18 Brief History from admission: Pt is a 62 y/o female with HTN, Hyperlipidemia, and hx of CAD who presented to the ED with reports of intermittent left facial numbness - Pt had an outpt MRI Brain (01/21/18) was negative for acute process. Outpt CTA Head (01/21/18) revealed high grade stenosis of the right internal carotid estimated to be in the range of 90%. - Pt was recommended to go to the ED for further treatment and evaluation by vascular surgery. DS: Diagnosis - Discharge Diagnosis (1) Left facial numbness Status: Acute (2) HTN (hypertension) Status: Chronic (3) Hyperlipidemia Status: Acute (4) CAD (coronary artery disease) Status: Acute DS: Medications - Discharge Medications Prescriptions: clopidogrel [Plavix] 75 mg PO DAILY #30 tab oxycodone-acetaminophen 1 tab PO Q4H PRN #18 tab PRN Reason: Pain DS: Summary Hospital Course: - Assessment (1) Carotid artery stenosis Code(s): I65.29 - Occlusion and stenosis of unspecified carotid artery Status : Acute Plan: Carotid artery stenosis Left facial numbness - Pt is a 62 y/o female with HTN, Hyperlipidemia, and hx of CAD who presented to the ED with reports of intermittent left facial numbness - Pt had an outpt MRI Brain (01/21/18) was negative for acute process. Outpt CTA Head (01/21/18) revealed high grade stenosis of the right internal carotid estimated to be in the range of 90%. - Pt was recommended to go to the ED for further treatment and evaluation by vascular surgery. - Pt was admitted by Dr. Booth in the ED and right cea performed on 01/23 - Home BP meds were resumed - Pt was started on Plavix 75mg po daily pt stable. discussed with Dr Tawanna hair asa and give plavix for now. will have pt f/u 2 weeks. pain script for percocet given. HTN - Losartan 50mg po BID resumed - PRN BP control - Monitor Hyperlipidemia - Cholesterol panel in the ED noted LDL 134 - Cont. Atorvastatin 80mg HS (2) Left facial numbness Code(s): R20.0 - Anesthesia of skin Status: Acute (3) HTN (hypertension) Code(s): I10 - Essential (primary) hypertension Status: Acute (4) Hyperlipidemia Code(s): E78.5 - Hyperlipidemia, unspecified Status: Acute (5) CAD (coronary artery disease) - Time Spent with Patient Total time spent providing and/or coordinating discharge services: Greater than 30 minutes - Quality: VTE Deep Vein Thrombosis/Pulmonary Embolism Present on Admission: No Exam Vital signs: heart reg lung cta abd s/nt ext no edema Results Procedures completed during hospitalization: right cea Completed studies during hospitalization: Pending at discharge 01/23/18 13:20 Surgical [PTH] Routine - Impressions ITS Impressions Head CT 01/22/18 00:00 CONCLUSION: 1. Negative CT Head non contrast. . Head MRI 01/22/18 00:00 CONCLUSION: 1. No acute abnormality seen. 2. There are a few scattered small focal areas of increased signal within the cerebral white matter likely representing small focal areas of demyelination. These are unchanged. Discharge Plan - Discharge Disposition Patient Disposition: Discharge Home - Discharge Condition Condition: Stable - Discharge Order Discharge Orders: Discharge Order (Routine); Ordered 01/25/18 Ordered By: Desmond Bowers - Discharge Details Anticipated Discharge Date: 01/25/18 Discharge Comment: dc home today if ok with Dr Stacy - Physicians Team Primary Care Provider: Stanford Yadav Attending Provider: Christie Booth Other Providers: Christie Booth MD ; Vasyl Wilson DO ; Desmond Bowers MD ; Maddie Connell MD
== END 2018-01-25 11:28 | disposition home or self-care (01) ==
LOC: NEPC 10:20 → NEDA 13:02 → N04 16:15 → N03 01-23 13:06
PROVIDERS: ADMIT Surgery; ATTEND Surgery

== ENCOUNTER 2018-01-27 08:59 | Observation (INO) ==
[2018-01-27 10:13] LABS: Hemoglobin 12.7 gm/dL (11.6-15.3); Mean Corpuscular HGB Conc 34.3 % (32.0-36.0); Mean Platelet Volume 8.7 fL (7.0-11.0); Platelet Count 199 th/mm3 (150-450); Red Blood Count 3.86 mil/mm3 (4.00-5.30); Red Cell Distribution Width 13.5 % (11.6-17.2); White Blood Count 9.2 th/mm3 (4.0-11.0)
--- NOTE | 2018-01-27 10:28 | XR ---
EXAM DATE: 01/27/2018 10:21 AM EDT AGE/SEX: 62 years / Female INDICATIONS: Dyspnea since right carotid surgery 5 days ago CLINICAL DATA: This is the patient's initial encounter. Patient reports that signs and symptoms have been present for 4 - 6 days and indicates a pain score of 2/10. MEDICAL/SURGICAL HISTORY: Cardiovascular disease. Carotid stenosis. Hypertension. Carotid end arterectomy. Hysterectomy. COMPARISON: [facility] [place], CHEST PA & LAT, 07/10/2017. . FINDINGS: There is atelectasis at the right lung base and left lung base. No consolidation or effusion. Cardiom egaly. Osseous structures are intact. CONCLUSION: Basilar atelectasis. Electronically signed by: Shaka Farias MD 01/27/2018 10:27 AM EDT
[2018-01-27 10:34] LABS: Alanine Aminotransferase 67 U/L (10-53); Albumin 3.7 g/dL (3.4-5.0); Anion Gap 7 meq/L (5-15); Aspartate Aminotransferase 55 U/L (15-37); Blood Urea Nitrogen 9 mg/dL (7-18); Calcium 9.1 mg/dL (8.5-10.1); Carbon Dioxide 28.5 meq/L (21.0-32.0); Chloride 105 meq/L (98-107); Glomerular Filtration Rate 77 mL/min (>89); Glucose,Random 109 mg/dL (74-106); Potassium 3.8 meq/L (3.5-5.1); Sodium 140 meq/L (136-145)
[2018-01-27 10:39] LABS: Alkaline Phosphatase 121 U/L (45-117); Creatine Kinase 163 U/L (26-192); Total Protein 7.4 g/dL (6.4-8.2); Troponin I 0.12 ng/mL (0.02-0.05)
[2018-01-27 10:51] LABS: Creatine Kinase MB 3.6 ng/mL (0.5-3.6)
[2018-01-27 10:54] LABS: Eosinophils 2 % (0-4); Lymphocytes 8 % (9-44); Monocytes 6 % (0-8); Platelet Estimate Normal (Normal); Platelet Morphology Normal (Normal)
[2018-01-27 11:03] LABS: Bilirubin,Urine Negative (Negative); Clarity,Urine Clear (Clear); Color,Urine Yellow (Yellw/Straw); Glucose,Urine (UA) Negative (Negative); Leukocyte Esterase,Urine Negative (Negative); Nitrite,Urine Negative (Negative); Specific Gravity,Urine 1.008 (1.002-1.035); Squamous Epithelial Cell,Urine 5 /hpf (0-5)
--- NOTE | 2018-01-27 12:34 | CT ---
EXAM DATE: 01/27/2018 12:27 PM EDT AGE/SEX: 62 years / Female INDICATIONS: Coughing up blood status post carotid endarterectomy. CLINICAL DATA: This is the patient's initial encounter. Patient reports that signs and symptoms have been present for 2 days and indicates a pain score of 0/10. MEDICAL/SURGICAL HISTORY: Hypertension. Coronary artery disease. Mitral valve prolapse. Carotid en darterectomy. RADIATION DOSE: 13.13 CTDI (mGy) COMPARISON: No prior exams available for comparison. TECHNIQUE: Volumetric scanning was performed using a multi-row detector CT scanner during bolus infu claudia of 73 ml Omnipaque 350 (iohexol) nonionic water-soluble contrast as a single exam dose. The francisco a was post processed with a variety of visualization algorithms including full volume maximum intensi ty projection and sliding thin slab reformation. Using automated exposure control and adjustment of t he mA and/or kV according to patient size, radiation dose was kept as low as reasonably achievable to obtain optimal diagnostic quality images. DICOM format image data is available electronically for r eview and comparison. FINDINGS: Pulmonary Arteries: No filling defects are seen in the pulmonary arteries out to the subsegmental ve ssels. The left and right pulmonary arteries are normal in diameter. Lung: There is increased density at the inferior lower lobes bilaterally. Effusion: None. Mediastinum: There is a mildly prominent lymph noted in the right paratracheal region measuring up t o 1 cm. There is a small normal-sized lymph node in the precarinal region. Significant adenopathy is not clearly appreciated. Coronary artery calcifications are present. Other: The axilla is unremarkable. CONCLUSION: 1. No pulmonary was. 2. Bibasilar areas of consolidation or atelectasis. 3. Coronary artery calcifications. Electronically signed by: Andres Luz MD 01/27/2018 12:32 PM EDT
--- NOTE | 2018-01-27 13:37 | P.PNVS ---
Subjective Subjective/Hospital Course: 62-year-old female underwent last week right carotid endarterectomy for near occlusion of the right carotid artery. Patient postoperatively did well and hypertension was controlled, patient was placed on the floor and then discharged in stable condition. 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 Torres and patient will be admitted to medicine for management of malignant recalcitrant hypertension I will be available if any surgical issues may arise Objective Vital Signs / I&O: Vital Signs 01/27/18 09:05 01/27/18 09:28 01/27/18 09:47 Temperature 98.3 F Pulse Rate 60 58 L Respiratory Rate 18 18 Blood Pressure 223/102 H 213/92 H Pulse Oximetry 93 L 98 97 01/27/18 10:01 01/27/18 10:39 01/27/18 11:23 Temperature Pulse Rate 62 53 L 50 L Respiratory Rate 16 16 14 Blood Pressure 213/92 H 204/86 H 196/80 H Pulse Oximetry 92 L 93 L 93 L 01/27/18 12:57 Temperature Pulse Rate 59 L Respiratory Rate 20 Blood Pressure 202/91 H Pulse Oximetry 94 L Intake & Output 01/26/18 01/27/18 01/27/18 18:59 06:59 18:59 Weight 70.307 kg Other: Date of Last Bowel Movement 01/22/18 Laboratory Results - last 24 hr 01/27/18 01/27/18 01/27/18 09:40 09:40 09:40 WBC 9.2 RBC 3.86 L Hgb 12.7 Hct 37.0 MCV 96.0 MCH 33.0 MCHC 34.3 RDW 13.5 Plt Count 199 MPV 8.7 Prelim Diff (Auto) Manual diff required WBC Differential Manual diff final Seg Neuts % (Manual) 81 H Band Neuts % (Manual) 3 Lymphocytes % (Manual) 8 L Monocytes % (Manual) 6 Eosinophils % (Manual) 2 Abs Neuts (Manual) 7.7 Differential Comment . Platelet Estimate Normal Platelet Morphology Normal D-Dimer Quant (PE/DVT) 1.03 H Sodium 140 Potassium 3.8 Chloride 105 Carbon Dioxide 28.5 Anion Gap 7 BUN 9 Creatinine 0.76 Estimated GFR 77 L Random Glucose 109 H Calcium 9.1 Total Bilirubin 0.6 AST 55 H ALT 67 H Alkaline Phosphatase 121 H Total Creatine Kinase 163 CK-MB (CK-2) 3.6 Troponin I 0.12 H Total Protein 7.4 D Albumin 3.7 Urine Color Urine Clarity Urine pH Ur Specific Odon Urine Protein Urine Glucose (UA) Urine Ketones Urine Occult Blood Urine Nitrate Urine Bilirubin Urine Urobilinogen Ur Leukocyte Esterase Urine RBC Urine WBC Ur Squamous Epith Cells Micro UA Comment Urine Culture Comments 01/27/18 10:08 WBC RBC Hgb Hct MCV MCH MCHC RDW Plt Count MPV Prelim Diff (Auto) WBC Differential Seg Neuts % (Manual) Band Neuts % (Manual) Lymphocytes % (Manual) Monocytes % (Manual) Eosinophils % (Manual) Abs Neuts (Manual) Differential Comment Platelet Estimate Platelet Morphology D-Dimer Quant (PE/DVT) Sodium Potassium Chloride Carbon Dioxide Anion Gap BUN Creatinine Estimated GFR Random Glucose Calcium Total Bilirubin AST ALT Alkaline Phosphatase Total Creatine Kinase CK-MB (CK-2) Troponin I Total Protein Albumin Urine Color Yellow Urine Clarity Clear Urine pH 7.0 Ur Specific Odon 1.008 Urine Protein Negative Urine Glucose (UA) Negative Urine Ketones Negative Urine Occult Blood Negative Urine Nitrate Negative Urine Bilirubin Negative Urine Urobilinogen Less than 2 Ur Leukocyte Esterase Negative Urine RBC 1 Urine WBC 1 Ur Squamous Epith Cells 5 Micro UA Comment Culture not ind Urine Culture Comments Culture not ind Impressions Chest X-Ray 01/27/18 09:35 CONCLUSION: Basilar atelectasis. Chest CTA 01/27/18 10:44 CONCLUSION: 1. No pulmonary was. 2. Bibasilar areas of consolidation or atelectasis. 3. Coronary artery calcifications.
--- NOTE | 2018-01-27 17:53 | ED ---
HPI General Chief Complaint: Abdominal Pain Stated Complaint: coughing blood Time Seen by Provider: 01/27/18 09:25 History of Present Illness HPI narrative: The patient is a 62-year-old female with a history of hypertension, CAD, S/P carotid endarterectomy 5 days presenting to the emergency department for projectile vomiting and constipation. She says that earlier this morning when she woke up around 6 AM she vomited some small amount of nonbloody mucus and then began to have projectile vomiting with specks of blood in it. She noted no alleviating or aggravating factors. She also has not had a bowel movement for about 5 days since prior to the surgery. Scribes her abdomen is feeling full and bloated and is passing gas. She also endorses mild shortness of breath began earlier this morning acutely with no alleviating or aggravating factors. Upon arrival her blood pressure was found to be in the 230s which she report is high for her. She denies any chest pain, abdominal pain, change in vision, headache, muscle weakness, slurring speech. Related Data Home Medications Medication Instructions Recorded Confirmed atorvastatin 80 mg PO HS 12/30/17 01/27/18 hydrochlorothiazide 25 mg PO DAILY 12/30/17 01/27/18 losartan 50 mg PO BID 12/30/17 01/27/18 calcium carbonate-vitamin D3 1 tab PO DAILY 01/22/18 01/27/18 [Calcium with Vitamin D] lorazepam 0.5 mg PO HS PRN 01/22/18 01/27/18 [id number]-vit K 1 tab PO DAILY 01/22/18 01/27/18 [Adults Multivitamin] Previous Rx's Medication Instructions Recorded clopidogrel [Plavix] 75 mg PO DAILY #30 tab 01/25/18 oxycodone-acetaminophen 1 tab PO Q4H PRN #18 tab 01/25/18 Allergies Allergy/AdvReac Type Severity Reaction Status Date / Time amlodipine AdvReac Intermediate legs Verified 01/27/18 09:11 swelling Review of Systems Constitutional Denies chills and Denies fever(s) Eyes Denies blurry vision and Denies loss of vision ENT Denies dizziness and Denies sore throat Cardiovascular Denies chest pain and Denies diaphoresis Respiratory Reports dyspnea (Mild) and Denies wheezing Gastrointestinal Denies abdominal pain and Reports constipation Genitourinary Denies hematuria, Denies urinary frequency and Denies dysuria Musculoskeletal Denies muscle weakness and Denies numbness Integumentary/Breasts Denies pruritus and Denies rash Neurologic Denies focal weakness and Denies numbness Psychiatric Denies anxiety and Denies confusion Endocrine Denies excessive sweating and Denies fatigue PMFSH Social History Social History Substance History: No History of Abuse Second Hand Smoke Exposure: No Smoking Status: Former smoker Tobacco Type: Cigarettes How Often Do You Have a Drink Containing Alcohol: 4 or more times a week Recent Travel in [facility] within the Last 8 Weeks: No Recent Out of Country Travel within the Last 8 Weeks: No Immunization History Tetanus Immunization: <5 Years Hx Influenza Vaccine This Season: Yes Exam Narrative Exam Narrative: GENERAL: Well-developed well-nourished female appearing in no acute respiratory distress. SKIN: Focused skin assessment warm/dry. Right side of the neck, incision is clean and dry with discharge, erythema, or tenderness. HEAD: Atraumatic. Normocephalic. EYES: Pupils equal and round. No scleral icterus. No injection or drainage. ENT: No nasal bleeding or discharge. Mucous membranes pink and moist. NECK: Trachea midline. No JVD. CARDIOVASCULAR: Regular rate and rhythm. 2 out of 6 systolic murmur heard best over the right second intercostal space. RESPIRATORY: No accessory muscle use. Clear to auscultation. Breath sounds equal bilaterally. Oxygen saturation is about 90% on room air. GASTROINTESTINAL: Abdomen soft, non-tender, mildly distended. Hepatic and splenic margins not palpable. Bowel sounds present. MUSCULOSKELETAL: No obvious deformities. No clubbing. No cyanosis. No edema. NEUROLOGICAL: Awake and alert. No obvious cranial nerve deficits. Motor grossly within normal limits. Normal speech. Course Initial Documented Vital Signs Temperature 98.3 F 01/27/18 09:05 Pulse Rate 60 01/27/18 09:05 Respiratory Rate 18 01/27/18 09:05 Blood Pressure 223/102 H 01/27/18 09:05 Pulse Oximetry 93 L 01/27/18 09:05 Last Documented Vital Signs Temperature 98.0 F 01/28/18 12:50 Pulse Rate 55 L 01/28/18 12:50 Respiratory Rate 16 01/28/18 12:50 Blood Pressure 138/70 01/28/18 12:16 Pulse Oximetry 96 01/28/18 12:50 Medical Decision Making MDM Narrative Medical decision making narrative: The patient is a 62-year-old female with history of CAD, hypertension, and status post carotid endarterectomy 5 days ago presenting for projectile vomiting, constipation, and hyper tension. She had an episode of nausea, vomiting this morning which was concerning due to her recent endarterectomy. She was also hypertensive and had a saturation of about 90% upon arrival. To rule out a pulmonary embolism we ordered a d-dimer which was positive, we proceeded with a CTA of the chest which was negative for pulmonary embolism. The patient did have an elevated troponin which is concerning for source of ischemia. She was administered Vasotec which did not adequately control blood pressure. This was followed by 0.3 mg of clonidine which brought her blood pressure down to 111/63. There is no concern for infection over the surgical site due to the lack of erythema, drainage, and no tenderness. The patient was discussed with Dr. Booth he recommended that we admit the patient for blood pressure control she will be admitted to the [facility] observation unit with telemetry. Differential Diagnosis Differential Diagnosis: Pulmonary embolism, ACS, hypertensive urgency, hypertensive emergency, dehydration, viral gastroenteritis, constipation secondary to narcotic use, electrolyte abnormality Lab Data Result diagrams: 01/28/18 06:05 01/28/18 06:05 Lab Results 01/27/18 01/27/18 01/27/18 Range/Units 09:40 09:40 09:40 WBC 9.2 (4.0-11.0) th/mm3 RBC 3.86 L (4.00-5.30) mil/mm3 Hgb 12.7 (11.6-15.3) gm/dL Hct 37.0 (35.0-46.0) % MCV 96.0 (80.0-100.0) fL MCH 33.0 (27.0-34.0) pg MCHC 34.3 (32.0-36.0) % RDW 13.5 (11.6-17.2) % Plt Count 199 (150-450) th/mm3 MPV 8.7 (7.0-11.0) fL Prelim Diff (Auto) Manual diff required Neut % (Auto) (16.0-70.0) % Lymph % (Auto) (9.0-44.0) % [place] % (Auto) (0.0-8.0) % Eos % (Auto) (0.0-4.0) % Baso % (Auto) (0.0-2.0) % Neut # (Auto) (1.8-7.7) th/mm3 Lymph # (Auto) (1.0-4.8) th/mm3 [place] # (Auto) (0.0-0.9) th/mm3 Eos # (Auto) (0.0-0.4) th/mm3 Baso # (Auto) (0.0-0.2) th/mm3 WBC Differential Manual diff final Seg Neuts % (Manual) 81 H (16-70) % Band Neuts % (Manual) 3 (0-6) % Lymphocytes % (Manual) 8 L (9-44) % Monocytes % (Manual) 6 (0-8) % Eosinophils % (Manual) 2 (0-4) % Abs Neuts (Manual) 7.7 (1.8-7.7) th/mm3 Differential Comment . Platelet Estimate Normal (Normal) Platelet Morphology Normal (Normal) D-Dimer Quant (PE/DVT) 1.03 H (0.00-0.50) mg/L FEU Sodium 140 (136-145) meq/L Potassium 3.8 (3.5-5.1) meq/L Chloride 105 (98-107) meq/L Carbon Dioxide 28.5 (21.0-32.0) meq/L Anion Gap 7 (5-15) meq/L BUN 9 (7-18) mg/dL Creatinine 0.76 (0.50-1.00) mg/dL Estimated GFR 77 L (>89) mL/min Random Glucose 109 H (74-106) mg/dL Calcium 9.1 (8.5-10.1) mg/dL Total Bilirubin 0.6 (0.2-1.0) mg/dL AST 55 H (15-37) U/L ALT 67 H (10-53) U/L Alkaline Phosphatase 121 H (45-117) U/L Total Creatine Kinase 163 (26-192) U/L CK-MB (CK-2) 3.6 (0.5-3.6) ng/mL Troponin I 0.12 H (0.02-0.05) ng/mL Total Protein 7.4 D (6.4-8.2) g/dL Albumin 3.7 (3.4-5.0) g/dL Urine Color (Yellw/Straw) Urine Clarity (Clear) Urine pH (5.0-8.5) Ur Specific [place] (1.002-1.035) Urine Protein (Neg-Trace) mg/dL Urine Glucose (UA) (Negative) mg/dL Urine Ketones (Negative) mg/dL Urine Occult Blood (Negative) Urine Nitrate (Negative) Urine Bilirubin (Negative) Urine Urobilinogen (Less than 2) mg/dL Ur Leukocyte Esterase (Negative) Urine RBC (0-3) /hpf Urine WBC (0-5) /hpf Ur Squamous Epith Cells (0-5) /hpf Micro UA Comment Urine Culture Comments 01/27/18 01/28/18 01/28/18 Range/Units 10:08 00:15 06:05 WBC (4.0-11.0) th/mm3 RBC (4.00-5.30) mil/mm3 Hgb (11.6-15.3) gm/dL Hct (35.0-46.0) % MCV (80.0-100.0) fL MCH (27.0-34.0) pg MCHC (32.0-36.0) % RDW (11.6-17.2) % Plt Count (150-450) th/mm3 MPV (7.0-11.0) fL Prelim Diff (Auto) Neut % (Auto) (16.0-70.0) % Lymph % (Auto) (9.0-44.0) % [place] % (Auto) (0.0-8.0) % Eos % (Auto) (0.0-4.0) % Baso % (Auto) (0.0-2.0) % Neut # (Auto) (1.8-7.7) th/mm3 Lymph # (Auto) (1.0-4.8) th/mm3 [place] # (Auto) (0.0-0.9) th/mm3 Eos # (Auto) (0.0-0.4) th/mm3 Baso # (Auto) (0.0-0.2) th/mm3 WBC Differential Seg Neuts % (Manual) (16-70) % Band Neuts % (Manual) (0-6) % Lymphocytes % (Manual) (9-44) % Monocytes % (Manual) (0-8) % Eosinophils % (Manual) (0-4) % Abs Neuts (Manual) (1.8-7.7) th/mm3 Differential Comment Platelet Estimate (Normal) Platelet Morphology (Normal) D-Dimer Quant (PE/DVT) (0.00-0.50) mg/L FEU Sodium 140 (136-145) meq/L Potassium 3.9 (3.5-5.1) meq/L Chloride 104 (98-107) meq/L Carbon Dioxide 27.1 (21.0-32.0) meq/L Anion Gap 9 (5-15) meq/L BUN 11 (7-18) mg/dL Creatinine 0.65 (0.50-1.00) mg/dL Estimated GFR Greater than 89 (>89) mL/min Random Glucose 90 (74-106) mg/dL Calcium 8.9 (8.5-10.1) mg/dL Total Bilirubin 0.7 (0.2-1.0) mg/dL AST 30 (15-37) U/L ALT 50 (10-53) U/L Alkaline Phosphatase 103 (45-117) U/L Total Creatine Kinase 97 84 (26-192) U/L CK-MB (CK-2) (0.5-3.6) ng/mL Troponin I 0.09 H 0.08 H (0.02-0.05) ng/mL Total Protein 6.8 D (6.4-8.2) g/dL Albumin 3.3 L (3.4-5.0) g/dL Urine Color Yellow (Yellw/Straw) Urine Clarity Clear (Clear) Urine pH 7.0 (5.0-8.5) Ur Specific [place] 1.008 (1.002-1.035) Urine Protein Negative (Neg-Trace) mg/dL Urine Glucose (UA) Negative (Negative) mg/dL Urine Ketones Negative (Negative) mg/dL Urine Occult Blood Negative (Negative) Urine Nitrate Negative (Negative) Urine Bilirubin Negative (Negative) Urine Urobilinogen Less than 2 (Less than 2) mg/dL Ur Leukocyte Esterase Negative (Negative) Urine RBC 1 (0-3) /hpf Urine WBC 1 (0-5) /hpf Ur Squamous Epith Cells 5 (0-5) /hpf Micro UA Comment Culture not ind Urine Culture Comments Culture not ind 01/28/18 Range/Units 06:05 WBC 5.0 (4.0-11.0) th/mm3 RBC 3.79 L (4.00-5.30) mil/mm3 Hgb 12.5 (11.6-15.3) gm/dL Hct 36.4 (35.0-46.0) % MCV 96.1 (80.0-100.0) fL MCH 33.0 (27.0-34.0) pg MCHC 34.3 (32.0-36.0) % RDW 13.7 (11.6-17.2) % Plt Count 183 (150-450) th/mm3 MPV 8.4 (7.0-11.0) fL Prelim Diff (Auto) Neut % (Auto) 56.2 (16.0-70.0) % Lymph % (Auto) 30.0 (9.0-44.0) % [place] % (Auto) 9.6 H (0.0-8.0) % Eos % (Auto) 3.4 (0.0-4.0) % Baso % (Auto) 0.8 (0.0-2.0) % Neut # (Auto) 2.8 (1.8-7.7) th/mm3 Lymph # (Auto) 1.5 (1.0-4.8) th/mm3 [place] # (Auto) 0.5 (0.0-0.9) th/mm3 Eos # (Auto) 0.2 (0.0-0.4) th/mm3 Baso # (Auto) 0.0 (0.0-0.2) th/mm3 WBC Differential . Seg Neuts % (Manual) (16-70) % Band Neuts % (Manual) (0-6) % Lymphocytes % (Manual) (9-44) % Monocytes % (Manual) (0-8) % Eosinophils % (Manual) (0-4) % Abs Neuts (Manual) (1.8-7.7) th/mm3 Differential Comment Auto diff final Platelet Estimate (Normal) Platelet Morphology (Normal) D-Dimer Quant (PE/DVT) (0.00-0.50) mg/L FEU Sodium (136-145) meq/L Potassium (3.5-5.1) meq/L Chloride (98-107) meq/L Carbon Dioxide (21.0-32.0) meq/L Anion Gap (5-15) meq/L BUN (7-18) mg/dL Creatinine (0.50-1.00) mg/dL Estimated GFR (>89) mL/min Random Glucose (74-106) mg/dL Calcium (8.5-10.1) mg/dL Total Bilirubin (0.2-1.0) mg/dL AST (15-37) U/L ALT (10-53) U/L Alkaline Phosphatase (45-117) U/L Total Creatine Kinase (26-192) U/L CK-MB (CK-2) (0.5-3.6) ng/mL Troponin I (0.02-0.05) ng/mL Total Protein (6.4-8.2) g/dL Albumin (3.4-5.0) g/dL Urine Color (Yellw/Straw) Urine Clarity (Clear) Urine pH (5.0-8.5) Ur Specific [place] (1.002-1.035) Urine Protein (Neg-Trace) mg/dL Urine Glucose (UA) (Negative) mg/dL Urine Ketones (Negative) mg/dL Urine Occult Blood (Negative) Urine Nitrate (Negative) Urine Bilirubin (Negative) Urine Urobilinogen (Less than 2) mg/dL Ur Leukocyte Esterase (Negative) Urine RBC (0-3) /hpf Urine WBC (0-5) /hpf Ur Squamous Epith Cells (0-5) /hpf Micro UA Comment Urine Culture Comments Imaging Data Radiologist's impression: Chest X-Ray 01/27/18 09:35 CONCLUSION: Basilar atelectasis. Chest CTA 01/27/18 10:44 CONCLUSION: 1. No pulmonary was. 2. Bibasilar areas of consolidation or atelectasis. 3. Coronary artery calcifications. Discharge Plan Discharge Disposition Patient Disposition: 01 Discharge Home Discharge Condition Condition: Stable Discharge Order Discharge Orders: Discharge Order (Routine); Ordered 01/28/18 Ordered By: Laney Alexander Discharge Details Anticipated Discharge Date: 01/28/18 Discharge Comment: Followup with Dr. Booth in 1 week, call for that appt. Followup with your PCP, Dr. Sea Yadav in 1 week, call for an appt. Diagnosis: Hypertensive crisis, Hx of cardiac cath, HTN (hypertension), Hyperlipidemia, CAD (coronary artery disease), Elevated troponin Physicians Team ED Provider: Anival Torres Primary Care Provider: Stanford Yadav Attending Provider: Peter Childress Discharge Interventions Interventions: ED Discharge Assessment Last Done: 01/27/18 18:58 Vital Signs Last Done: 01/27/18 17:00 Status ED Status: Left Department Discharge Information Discharge Date/Time: 01/27/18 18:59
[2018-01-27] MEDS ORDERED: Bisacodyl 10 MG Supp RECTAL PRN (18:02)
[2018-01-27] MEDS ORDERED: Temazepam 15 MG Capsule PO PRN (18:02)
[2018-01-27] MEDS ORDERED: oxyCODONE/Acetaminophen 10/325 Tablet PO PRN (18:07)
--- NOTE | 2018-01-27 18:21 | P.HPFP ---
History of Present Illness Primary Care Physician: Stanford Yadav MD Chief Complaint: nausea and vomiting History of Present Illness: This is a very pleasant 62 yo female who came to the ER today for nausea and one episode of emesis this morning. She underwent a right carotid endarterectomy [address] Hedrick for TIA (had left facial paresthesias, was found to have 90% blockage of right carotid artery). She states she has not had a bowel movement since discharge from the hospital. She was nauseated this morning and then vomited once. She denies any abdominal pain. She was not able to take her morning medications. In the ER her blood pressure was markedly elevated and she received Vasotec IV as well as 0.3 mg of clonidine. Blood pressure is now 111/62. Patient states she has no further nausea. She complains of feeling drowsy after receiving the clonidine. Dr. Barfield has evaluated her in the emergency department and stated the incision looks good and recommends blood pressure control. I was requested to place the patient in observation to monitor her blood pressure overnight. Of note the patient did have an elevated d-dimer however had negative CTA chest. She also has very mildly elevated troponin. She did undergo a cardiac catheterization in July 2017 which showed mild coronary artery disease with no need for stent placement and which is being medically managed. She was seen and cleared by cardiology last week while in the hospital. She denies any chest pain, chest pressure, shortness of breath, cough. EKG showed no acute ischemic changes, normal sinus rhythm slightly bradycardic. Chest x-ray showed bibasilar atelectasis. She denies any paresthesias, unilateral weakness, headache, double vision. - Diagnosis (1) Hypertensive crisis (2) Elevated troponin (3) Vomiting (4) Constipation (5) Elevated LFTs Review of Systems All other systems reviewed negative except as stated in HPI PMFSH - History History Provided By: Patient - Medical History Medical History: Medical History (Last Reviewed 01/27/18 @ 18:23 by Carol Hartmann MD) Mitral valve prolapse (Acute) Carotid artery stenosis (Acute) CAD (coronary artery disease) (Acute) Hypertension (Acute) High cholesterol (Acute) Myocardial infarct, old (Acute) - Surgical History Surgical History: Surgical History (Last Reviewed 01/27/18 @ 18:23 by Carol Hartmann MD) H/O dilation and curettage (Acute) History of partial hysterectomy (Acute) Hx of cardiac cath (Acute) S/P carotid endarterectomy - Tobacco History Second Hand Smoke Exposure: No Tobacco Use In Past 30 Days: No Smoking Status: Former smoker (quit 10 years ago) Tobacco Type: Cigarettes - Alcohol History How Often Do You Have a Drink Containing Alcohol: 4 or more times a week - Substance Use History Substance History: No History of Abuse - Travel History Recent Travel in the [place] Within the Last 8 Weeks: No Recent Travel Out of the Country Within the Last 8 Weeks: No - Immunization History Tetanus Immunization: <5 Years Hx Influenza Vaccine This Season: Yes Medications and Allergies Active Medications: Active Medications Al Hydroxide/Mg Hydroxide (Milk Of Magnesia Liq) 30 ml PO Q12H PRN PRN Reason: Mild Constipation Al Hydroxide/Mg Hydroxide (Milk Of Magnesia Liq) 30 ml PO ONCE ONE Stop: 01/27/18 18:07 Atorvastatin Calcium (Lipitor) 80 mg PO HS SANTINO Bisacodyl (Dulcolax Supp) 10 mg RECTAL DAILY PRN PRN Reason: SEVERE CONSITIPATION Clonidine HCl (Catapres) 0.1 mg PO Q6H PRN PRN Reason: SBP>160, DBP>90 Clopidogrel Bisulfate (Plavix) 75 mg PO DAILY SANTINO Hydrochlorothiazide (Hydrodiuril) 25 mg PO DAILY SANTINO Lactulose (Lactulose Liq) 30 ml PO DAILY PRN PRN Reason: SEVERE CONSITIPATION Lorazepam (Ativan) 0.5 mg PO HS PRN PRN Reason: Insomnia Losartan Potassium (Cozaar) 50 mg PO BID SANTINO Ondansetron HCl (Zofran Inj) 4 mg IV.PUSH Q6H PRN PRN Reason: NAUSEA OR VOMITING Oxycodone/Acetaminophen (Percocet 10/325 Mg) 1 tab PO Q6H PRN PRN Reason: pain 1-10 Senna/Docusate Sodium (Carrie-Colace) 1 tab PO BID SANTINO Sennosides (Senokot) 17.2 mg PO Q12H PRN PRN Reason: Moderate Constipation Sodium Chloride (Ns Flush) 2 ml IV.FLUSH PRN PRN PRN Reason: FLUSH AFTER USING IV ACCESS Last Admin: 01/27/18 10:17 Dose: 2 ml Allergies Allergy/AdvReac Type Severity Reaction Status Date / Time amlodipine AdvReac Intermediate legs Verified 01/27/18 09:11 swelling Home Medications Medication Instructions Recorded Confirmed Type aspirin [Aspir-Low] 81 mg PO DAILY 12/30/17 01/27/18 History atorvastatin 80 mg PO HS 12/30/17 01/27/18 History hydrochlorothiazide 25 mg PO DAILY 12/30/17 01/27/18 History losartan 50 mg PO BID 12/30/17 01/27/18 History calcium carbonate-vitamin D3 1 tab PO DAILY 01/22/18 01/27/18 History [Calcium with Vitamin D] lorazepam 0.5 mg PO HS PRN 01/22/18 01/27/18 History [id number]-rlk-ygea-FA-vit K 1 tab PO DAILY 01/22/18 01/27/18 History [Adults Multivitamin] Exam Vital signs: Vital Signs 01/27/18 09:05 01/27/18 09:28 01/27/18 09:47 Temperature 98.3 F Pulse Rate 60 58 L Respiratory Rate 18 18 Blood Pressure 223/102 H 213/92 H Pulse Oximetry 93 L 98 97 01/27/18 10:01 01/27/18 10:39 01/27/18 11:23 Temperature Pulse Rate 62 53 L 50 L Respiratory Rate 16 16 14 Blood Pressure 213/92 H 204/86 H 196/80 H Pulse Oximetry 92 L 93 L 93 L 01/27/18 12:57 01/27/18 13:30 01/27/18 14:35 Temperature Pulse Rate 59 L 50 L 59 L Respiratory Rate 20 16 16 Blood Pressure 202/91 H 187/79 H 129/59 L Pulse Oximetry 94 L 93 L 94 L 01/27/18 17:00 Temperature Pulse Rate 45 L Respiratory Rate 18 Blood Pressure 111/63 Pulse Oximetry 94 L Intake & Output 01/26/18 01/27/18 01/27/18 18:59 06:59 18:59 Weight 70.307 kg Other: Date of Last Bowel Movement 01/22/18 - Constitutional no acute distress - Routine HEENT Exam Head: Present: normocephalic, atraumatic Eye: Present: EOMI, PERRL ENT: Present: mucous membranes moist, oropharynx clear - Routine Neck Exam Present: supple. Absent: lymphadenopathy Comments: right neck incision c/d/i - Routine Respiratory Exam Present: CTA bilaterally. Absent: accessory muscle use - Routine Cardiovascular Exam Present: RRR, S1, S2 - Routine Abdominal Exam Present: soft, normoactive bowel sounds. Absent: tenderness - Routine Extremities Exam Present: pulses intact. Absent: edema - Routine Skin Exam Present: dry, warm - Routine Neurological Exam Present: alert, oriented X3 Results - Labs Result diagrams: 01/27/18 09:40 01/27/18 09:40 Abnormal lab results 01/27/18 01/27/18 01/27/18 Range/Units 09:40 09:40 09:40 RBC 3.86 L (4.00-5.30) mil/mm3 Seg Neuts % (Manual) 81 H (16-70) % Lymphocytes % (Manual) 8 L (9-44) % D-Dimer Quant (PE/DVT) 1.03 H (0.00-0.50) mg/L FEU Estimated GFR 77 L (>89) mL/min Random Glucose 109 H (74-106) mg/dL AST 55 H (15-37) U/L ALT 67 H (10-53) U/L Alkaline Phosphatase 121 H (45-117) U/L Troponin I 0.12 H (0.02-0.05) ng/mL Short CBC 01/27/18 Range/Units 09:40 WBC 9.2 (4.0-11.0) th/mm3 Hgb 12.7 (11.6-15.3) gm/dL Hct 37.0 (35.0-46.0) % Plt Count 199 (150-450) th/mm3 BMP 01/27/18 09:40 Sodium 140 Potassium 3.8 Chloride 105 Carbon Dioxide 28.5 BUN 9 Creatinine 0.76 Calcium 9.1 Cardiac Enzymes 01/27/18 Range/Units 09:40 Total Creatine Kinase 163 (26-192) U/L CK-MB (CK-2) 3.6 (0.5-3.6) ng/mL Troponin I 0.12 H (0.02-0.05) ng/mL Liver Function 01/27/18 Range/Units 09:40 Total Bilirubin 0.6 (0.2-1.0) mg/dL AST 55 H (15-37) U/L ALT 67 H (10-53) U/L Alkaline Phosphatase 121 H (45-117) U/L Albumin 3.7 (3.4-5.0) g/dL Urine 01/27/18 Range/Units 10:08 Urine Color Yellow (Yellw/Straw) Urine Clarity Clear (Clear) Urine pH 7.0 (5.0-8.5) Ur Specific [place] 1.008 (1.002-1.035) Urine Protein Negative (Neg-Trace) mg/dL Urine Glucose (UA) Negative (Negative) mg/dL - Imaging Impressions Chest X-Ray 01/27/18 09:35 CONCLUSION: Basilar atelectasis. Chest CTA 01/27/18 10:44 CONCLUSION: 1. No pulmonary was. 2. Bibasilar areas of consolidation or atelectasis. 3. Coronary artery calcifications. Caprini VTE Risk Assessment Caprini VTE Risk Assessment: Moderate/High Risk (score >= 2) Caprini Risk Assessment Model: Point Value = 1 Point Value = 2 Point Value = 3 Point Value = 5 Age 41-60 Minor surgery BMI > 25 kg/m2 Swollen legs Varicose veins or History of unexplained or recurrent spontaneous Oral contraceptives or hormone replacement Sepsis (< 1 month) Serious lung disease, including pneumonia (< 1 month) Abnormal pulmonary function Acute myocardial infarction Congestive heart failure (< 1 month) History of inflammatory bowel disease Medical patient at bed rest Age 61-74 Arthroscopic surgery Major open surgery (> 45 min) Laparoscopic surgery (> 45 min) Malignancy Confined to bed (> 72 hours) Immobilizing plaster cast Central venous access Age >= 75 History of VTE Family history of VTE Factor V Leiden Prothrombin [id number] Lupus anticoagulant Anticardiolipin antibodies Elevated serum homocysteine Heparin-induced thrombocytopenia Other congenital or acquired thrombophilia Stroke (< 1 month) Elective arthroplasty Hip, pelvis, or leg fracture Acute spinal cord injury (< 1 month) Prophylaxis Regimen: Total Risk Factor Score Risk Level Prophylaxis Regimen 0-1 Low Early ambulation 2 Moderate Order ONE of the following: *Sequential Compression Device (SCD) *Heparin 5000 units SQ BID 3-4 Higher Order ONE of the following medications: *Heparin 5000 units SQ TID *Enoxaparin/Lovenox 40 mg SQ daily (WT < 150 kg, CrCl > 30 mL/min) *Enoxaparin/Lovenox 30 mg SQ daily (WT < 150 kg, CrCl > 10-29 mL/min) *Enoxaparin/Lovenox 30 mg SQ BID (WT < 150 kg, CrCl > 30 mL/min) AND/OR *Sequential Compression Device (SCD) 5 or more Highest Order ONE of the following medications: *Heparin 5000 units SQ TID (Preferred with Epidurals) *Enoxaparin/Lovenox 40 mg SQ daily (WT < 150 kg, CrCl > 30 mL/min) *Enoxaparin/Lovenox 30 mg SQ daily (WT < 150 kg, CrCl > 10-29 mL/min) *Enoxaparin/Lovenox 30 mg SQ BID (WT < 150 kg, CrCl > 30 mL/min) AND *Sequential Compression Device (SCD) Assessment and Plan - Assessment (1) Hypertensive crisis Code(s): I16.9 - Hypertensive crisis, unspecified Status: Acute (2) Elevated troponin Code(s): R74.8 - Abnormal levels of other serum enzymes Status: Acute (3) Vomiting Code(s): R11.10 - Vomiting, unspecified Status: Acute (4) Constipation Code(s): K59.00 - Constipation, unspecified Status: Acute (5) Elevated LFTs Code(s): R94.5 - Abnormal results of liver function studies Status: Acute - Assessment and Plan We will place the patient in observation and monitor her blood pressure. Monitor her on telemetry and check 2 more cardiac enzymes. I believe the troponin is mildly elevated due to the elevated blood pressure and recent surgery. For the constipation we will give her milk of magnesia 1 now. I believe the nausea and vomiting was most likely related to the constipation. She is currently not having those symptoms anymore. We will restart her home blood pressure medications, lipitor and restart the Plavix. Of note she is not taking aspirin at home and is supposed to be just on Plavix at this time. She has been evaluated by Dr. Barfield who recommends blood pressure control given her recent right carotid endarterectomy. She does have some mild elevated liver enzymes which is new compared to last week and these will be repeated tomorrow. Plan was described in detail to the patient and her at bedside.
[2018-01-27] MEDS ORDERED: LORazepam 0.5 MG Tablet PO PRN (21:00)
[2018-01-27] MEDS: Senna/Docusate Sodium 8.6/50 MG Tablet PO SCH (21:14)
--- NOTE | 2018-01-27 21:39 | ECG ---
Date Performed: 01/27/2018 Time Performed: 09:55:11 PTAGE: 62 years EKG: SINUS BRADYCARDIA BORDERLINE ECG PREVIOUS TRACING : 01/22/2018 18.25 Since the previous tracing, no significant change noted DOCTOR: Newton Santos Interpretating Date/Time 01/27/2018 21:38:52
[2018-01-28 00:51] LABS: Troponin I 0.09 ng/mL (0.02-0.05)
[2018-01-28 07:26] LABS: Baso % (Auto) 0.8 % (0.0-2.0); Eos # (Auto) 0.2 th/mm3 (0.0-0.4); Eos % (Auto) 3.4 % (0.0-4.0); Hematocrit 36.4 % (35.0-46.0); Hemoglobin 12.5 gm/dL (11.6-15.3); Lymph # (Auto) 1.5 th/mm3 (1.0-4.8); Mean Corpuscular HGB Conc 34.3 % (32.0-36.0); Mean Corpuscular Volume 96.1 fL (80.0-100.0); Mean Platelet Volume 8.4 fL (7.0-11.0); Mono # (Auto) 0.5 th/mm3 (0.0-0.9); Mono % (Auto) 9.6 % (0.0-8.0); Neut # (Auto) 2.8 th/mm3 (1.8-7.7); Neut % (Auto) 56.2 % (16.0-70.0); Platelet Count 183 th/mm3 (150-450); Red Blood Count 3.79 mil/mm3 (4.00-5.30); Red Cell Distribution Width 13.7 % (11.6-17.2)
[2018-01-28 07:55] LABS: Albumin 3.3 g/dL (3.4-5.0); Anion Gap 9 meq/L (5-15); Aspartate Aminotransferase 30 U/L (15-37); Blood Urea Nitrogen 11 mg/dL (7-18); Calcium 8.9 mg/dL (8.5-10.1); Carbon Dioxide 27.1 meq/L (21.0-32.0); Chloride 104 meq/L (98-107); Glomerular Filtration Rate Greater Than 89 mL/min (>89); Glucose,Random 90 mg/dL (74-106); Potassium 3.9 meq/L (3.5-5.1); Sodium 140 meq/L (136-145)
[2018-01-28 08:01] LABS: Alanine Aminotransferase 50 U/L (10-53); Alkaline Phosphatase 103 U/L (45-117); Total Protein 6.8 g/dL (6.4-8.2); Troponin I 0.08 ng/mL (0.02-0.05)
[2018-01-28 08:02] LABS: Creatine Kinase 84 U/L (26-192)
[2018-01-28] MEDS ORDERED: Magnesium Citrate Liq 300 ML Bottle PO ONE (08:38)
[2018-01-28] MEDS ORDERED: hydroCHLOROthiazide 25 MG Tablet PO SCH (09:00)
--- NOTE | 2018-01-28 09:01 | P.PNIM ---
Subjective Interval history: Pt feeling well today She tolerated some oral intake last night Still no BM Pts BP was better overnight, awaiting morning vitals Physical Exam Vital signs: Vital Signs 01/27/18 09:05 01/27/18 09:28 01/27/18 09:47 Temperature 98.3 F Pulse Rate 60 58 L Respiratory Rate 18 18 Blood Pressure 223/102 H 213/92 H Pulse Oximetry 93 L 98 97 01/27/18 10:01 01/27/18 10:39 01/27/18 11:23 Temperature Pulse Rate 62 53 L 50 L Respiratory Rate 16 16 14 Blood Pressure 213/92 H 204/86 H 196/80 H Pulse Oximetry 92 L 93 L 93 L 01/27/18 12:57 01/27/18 13:30 01/27/18 14:35 Temperature Pulse Rate 59 L 50 L 59 L Respiratory Rate 20 16 16 Blood Pressure 202/91 H 187/79 H 129/59 L Pulse Oximetry 94 L 93 L 94 L 01/27/18 17:00 01/27/18 20:48 01/28/18 00:00 Temperature 98.5 F 98.1 F Pulse Rate 45 L 51 L 42 L Respiratory Rate 18 17 16 Blood Pressure 111/63 111/55 L 98/55 L Pulse Oximetry 94 L 93 L 99 01/28/18 01:24 01/28/18 03:17 01/28/18 08:00 Temperature 98.5 F 97.7 F Pulse Rate 44 L 42 L 58 L Respiratory Rate 17 18 Blood Pressure 103/56 L 150/66 H Pulse Oximetry 93 L 92 L Intake & Output 01/27/18 01/28/18 01/28/18 18:59 06:59 18:59 Weight 70.307 kg Other: # Voids 2 Date of Last Bowel Movement 01/22/18 01/21/18 Narrative: GENERAL: NAD, AAOx3 NECK: Right neck surgical incision is c/d/i. CARDIO: Regular RESP: Breath sounds equal bilaterally. No accessory muscle use. ABD: +BS, soft, non-tender, nondistended. EXT: No cyanosis, or edema. Results - Labs CBC & Chem 7: 01/28/18 06:05 01/28/18 06:05 Laboratory Results - last 24 hr 01/27/18 01/27/18 01/27/18 09:40 09:40 09:40 WBC 9.2 RBC 3.86 L Hgb 12.7 Hct 37.0 MCV 96.0 MCH 33.0 MCHC 34.3 RDW 13.5 Plt Count 199 MPV 8.7 Prelim Diff (Auto) Manual diff required Neut % (Auto) Lymph % (Auto) [place] % (Auto) Eos % (Auto) Baso % (Auto) Neut # (Auto) Lymph # (Auto) [place] # (Auto) Eos # (Auto) Baso # (Auto) WBC Differential Manual diff final Seg Neuts % (Manual) 81 H Band Neuts % (Manual) 3 Lymphocytes % (Manual) 8 L Monocytes % (Manual) 6 Eosinophils % (Manual) 2 Abs Neuts (Manual) 7.7 Differential Comment . Platelet Estimate Normal Platelet Morphology Normal D-Dimer Quant (PE/DVT) 1.03 H Sodium 140 Potassium 3.8 Chloride 105 Carbon Dioxide 28.5 Anion Gap 7 BUN 9 Creatinine 0.76 Estimated GFR 77 L Random Glucose 109 H Calcium 9.1 Total Bilirubin 0.6 AST 55 H ALT 67 H Alkaline Phosphatase 121 H Total Creatine Kinase 163 CK-MB (CK-2) 3.6 Troponin I 0.12 H Total Protein 7.4 D Albumin 3.7 Urine Color Urine Clarity Urine pH Ur Specific [place] Urine Protein Urine Glucose (UA) Urine Ketones Urine Occult Blood Urine Nitrate Urine Bilirubin Urine Urobilinogen Ur Leukocyte Esterase Urine RBC Urine WBC Ur Squamous Epith Cells Micro UA Comment Urine Culture Comments 01/27/18 01/28/18 01/28/18 10:08 00:15 06:05 WBC RBC Hgb Hct MCV MCH MCHC RDW Plt Count MPV Prelim Diff (Auto) Neut % (Auto) Lymph % (Auto) [place] % (Auto) Eos % (Auto) Baso % (Auto) Neut # (Auto) Lymph # (Auto) [place] # (Auto) Eos # (Auto) Baso # (Auto) WBC Differential Seg Neuts % (Manual) Band Neuts % (Manual) Lymphocytes % (Manual) Monocytes % (Manual) Eosinophils % (Manual) Abs Neuts (Manual) Differential Comment Platelet Estimate Platelet Morphology D-Dimer Quant (PE/DVT) Sodium 140 Potassium 3.9 Chloride 104 Carbon Dioxide 27.1 Anion Gap 9 BUN 11 Creatinine 0.65 Estimated GFR Greater than 89 Random Glucose 90 Calcium 8.9 Total Bilirubin 0.7 AST 30 ALT 50 Alkaline Phosphatase 103 Total Creatine Kinase 97 84 CK-MB (CK-2) Troponin I 0.09 H 0.08 H Total Protein 6.8 D Albumin 3.3 L Urine Color Yellow Urine Clarity Clear Urine pH 7.0 Ur Specific [place] 1.008 Urine Protein Negative Urine Glucose (UA) Negative Urine Ketones Negative Urine Occult Blood Negative Urine Nitrate Negative Urine Bilirubin Negative Urine Urobilinogen Less than 2 Ur Leukocyte Esterase Negative Urine RBC 1 Urine WBC 1 Ur Squamous Epith Cells 5 Micro UA Comment Culture not ind Urine Culture Comments Culture not ind 01/28/18 06:05 WBC 5.0 RBC 3.79 L Hgb 12.5 Hct 36.4 MCV 96.1 MCH 33.0 MCHC 34.3 RDW 13.7 Plt Count 183 MPV 8.4 Prelim Diff (Auto) Neut % (Auto) 56.2 Lymph % (Auto) 30.0 [place] % (Auto) 9.6 H Eos % (Auto) 3.4 Baso % (Auto) 0.8 Neut # (Auto) 2.8 Lymph # (Auto) 1.5 [place] # (Auto) 0.5 Eos # (Auto) 0.2 Baso # (Auto) 0.0 WBC Differential . Seg Neuts % (Manual) Band Neuts % (Manual) Lymphocytes % (Manual) Monocytes % (Manual) Eosinophils % (Manual) Abs Neuts (Manual) Differential Comment Auto diff final Platelet Estimate Platelet Morphology D-Dimer Quant (PE/DVT) Sodium Potassium Chloride Carbon Dioxide Anion Gap BUN Creatinine Estimated GFR Random Glucose Calcium Total Bilirubin AST ALT Alkaline Phosphatase Total Creatine Kinase CK-MB (CK-2) Troponin I Total Protein Albumin Urine Color Urine Clarity Urine pH Ur Specific [place] Urine Protein Urine Glucose (UA) Urine Ketones Urine Occult Blood Urine Nitrate Urine Bilirubin Urine Urobilinogen Ur Leukocyte Esterase Urine RBC Urine WBC Ur Squamous Epith Cells Micro UA Comment Urine Culture Comments - Imaging Impressions Chest X-Ray 01/27/18 09:35 CONCLUSION: Basilar atelectasis. Chest CTA 01/27/18 10:44 CONCLUSION: 1. No pulmonary was. 2. Bibasilar areas of consolidation or atelectasis. 3. Coronary artery calcifications. Assessment and Plan - Assessment (1) HTN (hypertension) Code(s): I10 - Essential (primary) hypertension Status: Chronic Plan: HTN Hypertensive Urgency - Pt is a 62 yo female who recently underwent a right carotid endarterectomy [address] Hedrick for TIA (had left facial paresthesias, was found to have 90% blockage of right carotid artery). - She presented back to the ED on 01/27/18 with complaints of nausea/vomiting and constipation. In the ED her BP was significantly elevated at 223/102 but due to nausea and vomiting that morning she had not taken her BP medications. - In the ER she received Vasotec IV as well as 0.3 mg of clonidine. Blood pressure improved down to111/62. - She was resumed on her home BP medication regimen - BP remained stable overnight. - Monitor today Nausea/vomiting Constipation - Pt reports that her last BM was on 01/21/18 - She had an episode of vomiting on 01/27/18 which was likely related to constipation. - Pt was given Stool softeners and MOM last night - She has not had any further N/V - We will given a bottle of Mag Citrate today to help pt have a BM. - If pt moves her bowel, tolerates oral intake and her BP remains stable, anticipate d/c home later today Right CEA Carotid artery stenosis - Pt s/p Right CEA on 01/23/[address] Booth - Cont. Plavix and statin - Dr. Barfield re-evaluated the pt in the ED last night and felt that the incision looked good. Elevated troponin Hx of CAD - Troponin 0.12 --> 0.09 --> 0.08 - EKG showed no acute ischemic changes, normal sinus rhythm slightly bradycardic. - She previously underwent a cardiac catheterization in July 2017 which showed mild coronary artery disease with no need for stent placement and which is being medically managed. She was seen and cleared by cardiology last week while in the hospital. - The mildly elevated troponin is possibly due to the elevated blood pressure and recent surgery. - Pt had a noted elevated d-dimer however had negative CTA chest. Elevated LFTs, resolved - Labs were elevated at admission but repeat labs today note the LFTs have trended down to normal. (2) Elevated troponin Code(s): R74.8 - Abnormal levels of other serum enzymes Status: Acute (3) Vomiting Code(s): R11.10 - Vomiting, unspecified Status: Acute (4) Constipation Code(s): K59.00 - Constipation, unspecified Status: Acute (5) Elevated LFTs Code(s): R94.5 - Abnormal results of liver function studies Status: Acute (6) Carotid artery stenosis Code(s): I65.29 - Occlusion and stenosis of unspecified carotid artery Status : Resolved - Attending Attestation The exam, history, and the medical decision-making described in the above note were completed with the assistance of the mid-level provider. I reviewed and agree with the findings presented. I attest that I had a [id number] encounter with the patient on the same day, and personally performed and documented my assessment and findings in the medical record. Patient examined. Assessment and plan formulated with Laney Alexander PA-C. I agree with the above. (1) HTN (hypertension) Qualifiers: Hypertension type: essential hypertension Qualified Code(s): I10 - Essential (primary) hypertension (6) Carotid artery stenosis Qualifiers: Laterality: right Qualified Code(s): I65.21 - Occlusion and stenosis of right carotid artery
[2018-01-28] MEDS: Senna/Docusate Sodium 8.6/50 MG Tablet PO SCH (10:05)
[2018-01-28 12:16] VITALS: BP 138/70
[2018-01-28 12:52] VITALS: PULSE 55; RESP 16; TEMP 98; O2SAT 96
--- NOTE | 2018-02-27 09:34 | P.DS ---
Date of admission: 01/27/18 17:38 Primary care physician: Stanford Yadav MD Attending physician on discharge: Desmond Bowers Anticipated date of discharge: 01/28/18 Brief History from admission: This is a very pleasant 62 yo female who came to the ER today for nausea and one episode of emesis this morning. She underwent a right carotid endarterectomy [address] Hedrick for TIA (had left facial paresthesias, was found to have 90% blockage of right carotid artery). She states she has not had a bowel movement since discharge from the hospital. She was nauseated this morning and then vomited once. She denies any abdominal pain. She was not able to take her morning medications. In the ER her blood pressure was markedly elevated and she received Vasotec IV as well as 0.3 mg of clonidine. Blood pressure is now 111/62. Patient states she has no further nausea. She complains of feeling drowsy after receiving the clonidine. Dr. Barfield has evaluated her in the emergency department and stated the incision looks good and recommends blood pressure control. I was requested to place the patient in observation to monitor her blood pressure overnight. Of note the patient did have an elevated d-dimer however had negative CTA chest. She also has very mildly elevated troponin. She did undergo a cardiac catheterization in July 2017 which showed mild coronary artery disease with no need for stent placement and which is being medically managed. She was seen and cleared by cardiology last week while in the hospital. She denies any chest pain, chest pressure, shortness of breath, cough. EKG showed no acute ischemic changes, normal sinus rhythm slightly bradycardic. Chest x-ray showed bibasilar atelectasis. She denies any paresthesias, unilateral weakness, headache, double vision. DS: Diagnosis - Discharge Diagnosis (1) Hypertensive urgency Status: Acute DS: Summary Hospital Course: HTN Hypertensive Urgency - Pt is a 62 yo female who recently underwent a right carotid endarterectomy [address] Hedrick for TIA (had left facial paresthesias, was found to have 90% blockage of right carotid artery). - She presented back to the ED on 01/27/18 with complaints of nausea/vomiting and constipation. In the ED her BP was significantly elevated at 223/102 but due to nausea and vomiting that morning she had not taken her BP medications. - In the ER she received Vasotec IV as well as 0.3 mg of clonidine. Blood pressure improved down to111/62. - She was resumed on her home BP medication regimen - BP remained stable overnight. Nausea/vomiting Constipation - Pt reports that her last BM was on 01/21/18 - She had an episode of vomiting on 01/27/18 which was likely related to constipation. - Pt was given Stool softeners and MOM last night - She has not had any further N/V - We will given a bottle of Mag Citrate today to help pt have a BM. - If pt moves her bowel, tolerates oral intake and her BP remains stable, anticipate d/c home later today Right CEA Carotid artery stenosis - Pt s/p Right CEA on 01/23/[address] Booth - Cont. Plavix and statin - Dr. Barfield re-evaluated the pt in the ED last night and felt that the incision looked good. Elevated troponin Hx of CAD - Troponin 0.12 --> 0.09 --> 0.08 - EKG showed no acute ischemic changes, normal sinus rhythm slightly bradycardic. - She previously underwent a cardiac catheterization in July 2017 which showed mild coronary artery disease with no need for stent placement and which is being medically managed. She was seen and cleared by cardiology last week while in the hospital. - The mildly elevated troponin is possibly due to the elevated blood pressure and recent surgery. - Pt had a noted elevated d-dimer however had negative CTA chest. Elevated LFTs, resolved - Labs were elevated at admission but repeat labs today note the LFTs have trended down to normal. - Time Spent with Patient Total time spent providing and/or coordinating discharge services: Greater than 30 minutes - Quality: VTE Deep Vein Thrombosis/Pulmonary Embolism Present on Admission: No Exam Narrative: GENERAL: NAD, AAOx3 NECK: Right neck surgical incision is c/d/i. CARDIO: Regular RESP: Breath sounds equal bilaterally. No accessory muscle use. ABD: +BS, soft, non-tender, nondistended. EXT: No cyanosis, or edema. Results Procedures completed during hospitalization: none - Impressions ITS Impressions Chest X-Ray 01/27/18 09:35 CONCLUSION: Basilar atelectasis. Chest CTA 01/27/18 10:44 CONCLUSION: 1. No pulmonary was. 2. Bibasilar areas of consolidation or atelectasis. 3. Coronary artery calcifications. Discharge Plan - Discharge Disposition Patient Disposition: 01 Discharge Home - Discharge Condition Condition: Stable - Discharge Order Discharge Orders: Discharge Order (Routine); Ordered 01/28/18 Ordered By: Laney Alexander - Discharge Details Anticipated Discharge Date: 01/28/18 Discharge Comment: Followup with Dr. Booth in 1 week, call for that appt. - Physicians Team Primary Care Provider: Stanford Yadav Attending Provider: Peter Childress
== END 2018-01-28 16:18 | disposition home or self-care (01) ==
LOC: NEDA 08:59 → NEPC 08:59 → NEPHCDU 08:59 → NEDA 18:59 → NEPHCDU 19:06
PROVIDERS: ADMIT Hospitalist; ATTEND Hospitalist